=== PATIENT | female | born 1975 | race Caucasian/White ===

== ENCOUNTER 2020-05-04 09:25 | Day surgery (SDC) | payer MEDICARE, MEDICAID, SELFPAY ==
[2020-04-29 13:50] VITALS: BMI 58.1
--- NOTE | 2020-04-29 15:36 | P.CONAN_ITS ---
Documented by User: Sally Wiggins 04/29/20 15:39 HPI - Anesthesia Eval Consult details Narrative: 44yo F for EGD and Colonoscopy: GERD, abn LFT, rectal bleeding *multiple med allergies* PMFSH Past Medical History Medical History Arthritis Bronchitis Diabetes GERD (gastroesophageal reflux disease) History of fibromyalgia History of headache Hx of allergic reaction Hx of fracture of patella Hx of osteopenia Hx of Raynaud's syndrome Surgical History Surgical History History of removal of retained hardware Hx of arthroscopy of right knee Hx of cholecystectomy Hx of decompression of ulnar nerve Hx of hysterectomy Hx of tonsillectomy Social History Social History Smoking Status: Never smoker Use of substances other than those prescribed or required for medical reasons: No Advance Directives Information Provided: No Recently lost weight without trying: No Meds Allergies Allergy/AdvReac Type Severity Reaction Status Date / Time adalimumab [From Humira] Allergy Severe Anaphylaxis Verified 04/29/20 14:13 bee pollen [BEE STINGS] Allergy Severe SWELLING Verified 04/29/20 14:09 infliximab [From Remicade] Allergy Severe Anaphylaxis Verified 04/29/20 14:13 levofloxacin [From LEVAQUIN] Allergy Severe SEVERE Verified 04/29/20 14:09 JOINT PAIN pregabalin [From LYRICA] Allergy Severe ANAPHYLAXIS, Verified 04/29/20 14:04 throat swelling, throat swelling tree nut Allergy Severe Swelling Verified 04/29/20 14:13 adhesive [ADHESIVE] Allergy Intermediate RASH Verified 04/29/20 14:09 azithromycin Allergy Intermediate Hives Verified 04/29/20 14:13 etodolac Allergy Intermediate Swelling Verified 04/29/20 14:13 gabapentin [GABAPENTIN] Allergy Intermediate SWELLING Verified 04/29/20 14:09 TO LEGS AND FEET, swelling, swelling in legs and feet latex [LATEX] Allergy Intermediate RASH Verified 04/29/20 14:09 methylprednisolone Allergy Intermediate Muscle Verified 04/29/20 14:09 cramps nortriptyline [NORTRIPTYLINE] Allergy Intermediate FEVER, Verified 04/29/20 14:15 STOMACH CRAMPS, DRY MOUTH AND THROAT, coma, fever, stomach cramps lactose [LACTOSE] Allergy Mild CRAMPS, Verified 04/29/20 14:09 DIARRHEA shellfish derived Allergy Mild Stomach Verified 04/29/20 14:13 Upset moxifloxacin [Avelox] AdvReac Intermediate arthralgias Verified 04/29/20 14:13 doxycycline AdvReac Mild GI upset Verified 04/29/20 14:09 adhesive Allergy Intermediate Blister Uncoded 04/29/20 14:13 Home Medications Medication Instructions Recorded Confirmed Type albuterol sulfate 1 puff INHALATION Q4-6H PRN 04/29/20 04/29/20 History amlodipine 5 mg PO QPM 04/29/20 04/29/20 History cetirizine 10 mg PO QAM 04/29/20 04/29/20 History cholecalciferol (vitamin D3) 25 mcg PO DAILY 04/29/20 04/29/20 History [Vitamin D3] fexofenadine 180 mg PO QPM 04/29/20 04/29/20 History glyburide 5 mg PO BID 04/29/20 04/29/20 History hydroxyzine HCl 25 mg PO QID PRN 04/29/20 04/29/20 History magnesium oxide 250 mg PO QPM 04/29/20 04/29/20 History metformin 1,000 mg PO BID 04/29/20 04/29/20 History montelukast 10 mg PO BEDTIME 04/29/20 04/29/20 History pioglitazone 30 mg PO BEDTIME 04/29/20 04/29/20 History potassium chloride 20 meq PO DAILY 04/29/20 04/29/20 History ropinirole 0.75 mg PO BID 04/29/20 04/29/20 History Exam Exam Date and Time: April 29, 2020 1536 Height,Weight and Vital Signs: Height 5 ft 6 in Weight 163.293 kg Assessment and Plan Assessment Anesthesia Assessment: Chart Reviewed Documented by User: Wicho Calvo 05/04/20 11:05 [facility] Past Medical History Medical History Arthritis Bronchitis Diabetes GERD (gastroesophageal reflux disease) History of fibromyalgia History of headache Hx of allergic reaction Hx of fracture of patella Hx of osteopenia Hx of Raynaud's syndrome Surgical History Surgical History History of removal of retained hardware Hx of arthroscopy of right knee Hx of cholecystectomy Hx of decompression of ulnar nerve Hx of hysterectomy Hx of tonsillectomy Social History Social History Smoking Status: Never smoker Use of substances other than those prescribed or required for medical reasons: No Advance Directives Information Provided: No Recently lost weight without trying: No Meds Allergies Allergy/AdvReac Type Severity Reaction Status Date / Time adalimumab [From Humira] Allergy Severe Anaphylaxis Verified 04/29/20 14:13 bee pollen [BEE STINGS] Allergy Severe SWELLING Verified 04/29/20 14:09 infliximab [From Remicade] Allergy Severe Anaphylaxis Verified 04/29/20 14:13 levofloxacin [From LEVAQUIN] Allergy Severe SEVERE Verified 04/29/20 14:09 JOINT PAIN pregabalin [From LYRICA] Allergy Severe ANAPHYLAXIS, Verified 04/29/20 14:04 throat swelling, throat swelling tree nut Allergy Severe Swelling Verified 04/29/20 14:13 adhesive [ADHESIVE] Allergy Intermediate RASH Verified 04/29/20 14:09 azithromycin Allergy Intermediate Hives Verified 04/29/20 14:13 etodolac Allergy Intermediate Swelling Verified 04/29/20 14:13 gabapentin [GABAPENTIN] Allergy Intermediate SWELLING Verified 04/29/20 14:09 TO LEGS AND FEET, swelling, swelling in legs and feet latex [LATEX] Allergy Intermediate RASH Verified 04/29/20 14:09 methylprednisolone Allergy Intermediate Muscle Verified 04/29/20 14:09 cramps nortriptyline [NORTRIPTYLINE] Allergy Intermediate FEVER, Verified 04/29/20 14:15 STOMACH CRAMPS, DRY MOUTH AND THROAT, coma, fever, stomach cramps lactose [LACTOSE] Allergy Mild CRAMPS, Verified 04/29/20 14:09 DIARRHEA shellfish derived Allergy Mild Stomach Verified 04/29/20 14:13 Upset moxifloxacin [Avelox] AdvReac Intermediate arthralgias Verified 04/29/20 14:13 doxycycline AdvReac Mild GI upset Verified 04/29/20 14:09 adhesive Allergy Intermediate Blister Uncoded 04/29/20 14:13 Home Medications Medication Instructions Recorded Confirmed Type albuterol sulfate 1 puff INHALATION Q4-6H PRN 04/29/20 04/29/20 History amlodipine 5 mg PO QPM 04/29/20 04/29/20 History cetirizine 10 mg PO QAM 04/29/20 04/29/20 History cholecalciferol (vitamin D3) 25 mcg PO DAILY 04/29/20 04/29/20 History [Vitamin D3] fexofenadine 180 mg PO QPM 04/29/20 04/29/20 History glyburide 5 mg PO BID 04/29/20 04/29/20 History hydroxyzine HCl 25 mg PO QID PRN 04/29/20 04/29/20 History magnesium oxide 250 mg PO QPM 04/29/20 04/29/20 History metformin 1,000 mg PO BID 04/29/20 04/29/20 History montelukast 10 mg PO BEDTIME 04/29/20 04/29/20 History pioglitazone 30 mg PO BEDTIME 04/29/20 04/29/20 History potassium chloride 20 meq PO DAILY 04/29/20 04/29/20 History ropinirole 0.75 mg PO BID 04/29/20 04/29/20 History Exam Airway Mallampati Class: III TM Dist: >3cm Neck ROM: Full
[2020-05-04 10:24] VITALS: BP 134/81; PULSE 88; RESP 18; TEMP 36.4; O2SAT 95
[2020-05-04] MEDS: Lactated Ringers 1,000 ML 100 ML IVCONT (10:42)
--- NOTE | 2020-05-04 10:58 | MHC.SHP ---
Pre-Procedural Eval Section B Chief Complaint: DUODENAL ULCER,REFLUX Details of Present Illness: Gerd and rectal bleeding, see H&P, no changes Relevant Family History (Specify if Yes): No Relevant Social History: None Present Medications: see Short Stay Collaborative assessment Medical History: Significant History (see H&P no changes) History of Previous Operations: No relevant previous surgery Allergies: Allergies Allergy/AdvReac Type Severity Reaction Status Date / Time adalimumab [From Humira] Allergy Severe Anaphylaxis Verified 04/29/20 14:13 bee pollen [BEE STINGS] Allergy Severe SWELLING Verified 04/29/20 14:09 infliximab [From Remicade] Allergy Severe Anaphylaxis Verified 04/29/20 14:13 levofloxacin [From LEVAQUIN] Allergy Severe SEVERE Verified 04/29/20 14:09 JOINT PAIN pregabalin [From LYRICA] Allergy Severe ANAPHYLAXIS, Verified 04/29/20 14:04 throat swelling, throat swelling tree nut Allergy Severe Swelling Verified 04/29/20 14:13 adhesive [ADHESIVE] Allergy Intermediate RASH Verified 04/29/20 14:09 azithromycin Allergy Intermediate Hives Verified 04/29/20 14:13 etodolac Allergy Intermediate Swelling Verified 04/29/20 14:13 gabapentin [GABAPENTIN] Allergy Intermediate SWELLING Verified 04/29/20 14:09 TO LEGS AND FEET, swelling, swelling in legs and feet latex [LATEX] Allergy Intermediate RASH Verified 04/29/20 14:09 methylprednisolone Allergy Intermediate Muscle Verified 04/29/20 14:09 cramps nortriptyline [NORTRIPTYLINE] Allergy Intermediate FEVER, Verified 04/29/20 14:15 STOMACH CRAMPS, DRY MOUTH AND THROAT, coma, fever, stomach cramps lactose [LACTOSE] Allergy Mild CRAMPS, Verified 04/29/20 14:09 DIARRHEA shellfish derived Allergy Mild Stomach Verified 04/29/20 14:13 Upset moxifloxacin [Avelox] AdvReac Intermediate arthralgias Verified 04/29/20 14:13 doxycycline AdvReac Mild GI upset Verified 04/29/20 14:09 adhesive Allergy Intermediate Blister Uncoded 04/29/20 14:13 Review of Systems Sugical H&P ROS: Negative: Constitution, Cardiovascular, Respiratory, Neurological, Psychiatric, Hem-Onc, Allergic/Immunologic, Gastrointestinal, Genitourinary, Musculoskeletal, Integumentary, Endocrine and Eyes/Ears/Nose/Throat Exam Surgical H&P Exam: Normal: HEENT, Normal: Heart, Normal: Lungs, Normal: Extremities, Normal: Abdomen, Normal: Skin and Normal: Neurological Plan Diagnosis/Plan: Unchanged Patient has been examined and remains a candidate for the planned procedure
[2020-05-04 11:27] LABS: Glucose, Whole Blood 143 mg/dL (60-115)
[2020-05-04 11:45] VITALS: BP 113/59; PULSE 88; RESP 15; TEMP 36.6; O2SAT 97
--- NOTE | 2020-05-04 11:47 | PM.OP ---
Brief Operative Note Date of procedure: 05/04/20 Pre-op diagnosis: gerd rectal bleeding Post-op diagnosis: other (gastritis, colon polyp) Procedure: egd,colon Surgeon: Jaxson Dias Anesthesia: MAC Estimated blood loss (mL): 5 Pathology: other (antrum, egj, polyp 15 cm biopsies) Condition: stable Disposition: PACU
[2020-05-04 12:01] VITALS: BP 116/84; PULSE 87; RESP 16; TEMP 36.1; O2SAT 97
--- NOTE | 2020-05-04 12:19 | OP_ITS ---
SURGEON: Jaxson Dias MD INDICATIONS: 1. Gastroesophageal reflux disease. 2. Rectal bleeding. PREOPERATIVE DIAGNOSIS: POSTOPERATIVE DIAGNOSIS: PROCEDURE PERFORMED: 1. Upper endoscopy with biopsy. 2. Colonoscopy to the terminal ileum with biopsy. ESTIMATED BLOOD LOSS: COMPLICATIONS: ANESTHESIA: ASSISTANTS: SPECIMENS: MEDICATIONS: Monitored anesthesia care. DESCRIPTION OF PROCEDURE: History and physical performed. The risks and benefits of the procedure were explained to the patient. Informed consent was obtained. The patient was placed in the left lateral decubitus position. The Olympus video gastroscope was introduced into the esophagus, stomach, and duodenum. Examination was performed and the scope was removed. She was repositioned for colonoscopy. A digital rectal exam was performed and was found to be normal. The Olympus pediatric video colonoscope was introduced into the rectum and advanced to the cecum without difficulty. The cecum was identified by transillumination, palpation, and identification of ileocecal valve. Examination was performed and the scope was removed. She tolerated both procedures well and returned to recovery area in stable condition. FINDINGS: UPPER ENDOSCOPY: Esophagus: The esophagus showed an irregular EG junction. There was no esophagitis. Biopsies were obtained from the EG junction. Stomach: The stomach showed no evidence of masses or ulcers. There was mild scattered erythema consistent with mild gastritis. Biopsies were obtained from the antrum. Duodenum: The bulb and second portion were normal. COLONOSCOPY: The terminal ileum was normal. The visualized colonic mucosa was within normal limits without evidence of masses or ulcers. The quality of the prep was good. There was moderate sigmoid diverticulosis. A small less than 5 mm polyp was identified in the rectum at 15 cm and removed with biopsy forceps. No other polyps were identified. Retroflexed examination showed small internal hemorrhoids. IMPRESSION: 1. Gastritis. 2. Colon polyp. RECOMMENDATION: Follow up the biopsy results. MD TEJA Mulligan/HANNY / [id number]
== END 2020-05-04 12:51 | disposition home or self-care (01) ==
PROVIDERS: PCP Internal Medicine; Visit Provider Internal Medicine Gastroenterology
PROC: (CPT 45380; principal; 2020-05-04 10:30)
DX: K62.5 Hemorrhage of anus and rectum (principal); K62.1 Rectal polyp; K57.30 Diverticulosis of large intestine without perforation or abscess without bleeding; K64.8 Other hemorrhoids; K21.00 Gastro-esophageal reflux disease with esophagitis, without bleeding; K29.50 Unspecified chronic gastritis without bleeding; E11.9 Type 2 diabetes mellitus without complications; Z79.84 Long term (current) use of oral hypoglycemic drugs; Z79.899 Other long term (current) drug therapy; Z90.49 Acquired absence of other specified parts of digestive tract; Z88.8 Allergy status to other drugs, medicaments and biological substances; Z91.040 Latex allergy status; Z91.018 Allergy to other foods; Z91.013 Allergy to seafood
CPT/HCPCS: 45380; 43239; 82947; 88305; 88342

== ENCOUNTER 2020-06-18 08:00 | Outpatient (RCR) | payer MEDICARE, MEDICAID, SELFPAY | END 2020-08-12 09:56 | disposition other institution (70) | LOC: HO.PTWFD 08:00 | PROVIDERS: PCP Physician Assistant Medical; Visit Provider Orthopaedic Surgery | DX: M17.11 Unilateral primary osteoarthritis, right knee (principal); M17.12 Unilateral primary osteoarthritis, left knee | CPT/HCPCS: 97035; 97110; 97116; 97140; 97161 ==

== ENCOUNTER 2020-10-04 10:00 | Outpatient (RCR) | payer MEDICARE, MEDICAID, SELFPAY | END 2020-11-08 12:40 | disposition other institution (70) | LOC: HO.PTWFD 10:00 | PROVIDERS: Visit Provider Orthopaedic Surgery | DX: M70.61 Trochanteric bursitis, right hip (principal); M54.41 Lumbago with sciatica, right side; G89.29 Other chronic pain; M25.561 Pain in right knee | CPT/HCPCS: 97035; 97110; 97140; 97162; 97530; 97535 ==

== ENCOUNTER 2020-10-28 08:33 | Outpatient (REF) | payer MEDICARE, MEDICAID, SELFPAY ==
--- NOTE | ~2020-10-28 | US_ITS ---
EXAMINATION: US ABDOMEN COMPLETE CLINICAL INFORMATION: Elevated LFTs. COMPARISON: None TECHNIQUE: Real-time imaging of the abdominal viscera. FINDINGS: PANCREAS: Head and body the pancreas are normal. The tail is not well visualized. ABDOMINAL AORTA: The proximal, mid, and distal segments are normal in caliber. INFERIOR VENA CAVA: Visualized portions are normal. LIVER: The echotexture is increased. The liver is normal in size. The liver contour is normal. No focal hepatic lesion. There is no intrahepatic biliary duct dilatation seen. GALLBLADDER: Surgically absent. COMMON BILE DUCT: Not seen RIGHT KIDNEY: Normal. No hydronephrosis. No renal calculi or focal parenchymal lesions. The kidney measures 12 cm in maximum dimension. LEFT KIDNEY: Normal. No hydronephrosis. No renal calculi or focal parenchymal lesions. The kidney measures 11.8 cm in maximum dimension. SPLEEN: Normal. The spleen measures 12.3 cm in maximum dimension. FREE FLUID: None. US/US abdomen complete IMPRESSION: Echogenic liver probably representing fatty infiltration. No intrahepatic biliary duct dilatation. Pancreas and common bile duct not well visualized.
[2020-10-28 09:44] LABS: Basophils Percent Auto 0.7 % (0-2); Eosinophils Absolute Auto 0.1 X10*3/uL (0.0-0.4); Eosinophils Percent Auto 4.2 % (0-4); Hematocrit 42.7 % (37-47); Hemoglobin 13.7 g/dl (12.0-16.0); Imm Gran Abs Auto 0.01 X10*3/uL (0.00-0.03); Imm Gran Pct Auto 0.7 % (0.0-0.4); Lymphocytes Absolute Auto 0.8 X10*3/uL (1.2-4.9); Lymphocytes Percent Auto 52.8 % (20-40); MANUAL DIFF FLAG SCAN; Mean Corpuscular HGB Conc 32.1 g/dl (31.0-35.0); Mean Corpuscular Hemoglobin 30.2 pg (27.0-33.0); Mean Corpuscular Volume 94.3 fL (80-98); Mean Platelet Volume 9.3 fL (9.4-12.3); Monocytes Absolute Auto 0.3 X10*3/uL (0.1-1.2); Monocytes Percent Auto 17.6 % (2-11); Neutrophils Absolute Auto 0.3 X10*3/uL (2.0-8.3); Platelet Count 169 X10*3/uL (160-400); Red Blood Count 4.53 X10*6/uL (4.20-5.50); Red Cell Distribution Width 13.7 % (11.0-16.0); SCAN SMEAR FLAG 1
[2020-10-28 09:49] LABS: White Blood Count 1.4 X10*3/uL (4.8-10.8)
[2020-10-28 09:56] LABS: Prothrombin Time 11.7 SEC (10.8-13.0)
[2020-10-28 10:20] LABS: SLIDE REVIEW VERIFIED
[2020-10-28 10:26] LABS: Alanine Aminotransferase 59 U/L (0-31); Albumin Level 3.7 g/dL (3.5-5.0); Alkaline Phosphatase 181 U/L (39-117); Aspartate Amino Transferase 42 U/L (5-31); Bilirubin Direct 0.2 mg/dL (0.0-0.5); Bilirubin Total 0.5 mg/dL (0.0-1.0); Gamma Glutamyl Transpeptidase 191 U/L (7-33); Total Protein 6.2 g/dL (6.5-8.0)
[2020-11-04 18:32] LABS: FIB-ALT 52 U/L (6-29); FIB-Alpha-2-Macroglobulin 207 mg/dL (106-279); FIB-Apolipoprotein A1 174 mg/dL (101-198); FIB-GGT 146 U/L (3-55); FIB-Haptoglobin 148 mg/dL (43-212); FIB-Total Bilirubin 0.4 mg/dL (0.2-1.2); Liver Fibrosis Score 0.19; Liver Fibrosis Stage F0; Nec Inflam Act Grade A0-A1; Nec Inflam Act Score 0.27
== END 2020-10-28 08:34 | disposition home or self-care (01) ==
LOC: HO.US 08:33
PROVIDERS: PCP Internal Medicine; Visit Provider Internal Medicine Gastroenterology
DX: R94.5 Abnormal results of liver function studies (principal)
CPT/HCPCS: 36415; 76700; 80076; 81596; 82977; 85025; 85060; 85610

== ENCOUNTER 2021-06-14 13:00 | Outpatient (RCR) | payer MEDICARE, MEDICAID, SELFPAY | END 2021-08-01 09:30 | disposition home or self-care (01) | LOC: HO.PTWFD 13:00 | PROVIDERS: Visit Provider Physician Assistant | DX: M62.81 Muscle weakness (generalized) (principal) | CPT/HCPCS: 97110; 97140; 97163 ==

== ENCOUNTER → 2021-12-23 10:02 | Outpatient (BNVA) | payer MEDICARE, MEDICAID, SELFPAY | PROVIDERS: PCP Internal Medicine; Visit Provider Nurse Practitioner Family | DX: M53.3 Sacrococcygeal disorders, not elsewhere classified (principal); M06.9 Rheumatoid arthritis, unspecified; M47.816 Spondylosis without myelopathy or radiculopathy, lumbar region; E66.01 Morbid (severe) obesity due to excess calories; Z68.43 Body mass index [BMI] 50.0-59.9, adult | CPT/HCPCS: 99202 ==

== ENCOUNTER 2022-05-11 08:00 | Outpatient (RCR) | payer MEDICARE, MEDICAID, SELFPAY | END 2022-05-26 13:57 | disposition home or self-care (01) | LOC: HO.PTWFD 08:00 | PROVIDERS: PCP Physician Assistant Medical; Visit Provider Physician Assistant | DX: M75.50 Bursitis of unspecified shoulder (principal); M54.12 Radiculopathy, cervical region | CPT/HCPCS: 97014; 97110; 97140; 97162; 97535 ==

== ENCOUNTER 2022-06-02 08:00 | Outpatient (RCR) | payer MEDICARE, MEDICAID, SELFPAY | END 2022-06-02 09:13 | disposition home or self-care (01) | LOC: HO.OT 08:00 | PROVIDERS: PCP Physician Assistant Medical; Visit Provider Physician Assistant | DX: M25.521 Pain in right elbow (principal); G89.29 Other chronic pain | CPT/HCPCS: 97035; 97110; 97140; 97166 ==

== ENCOUNTER 2022-08-11 08:16 | Outpatient (REF) | payer MEDICARE, MEDICAID, SELFPAY ==
--- NOTE | ~2022-08-11 | US_ITS ---
EXAMINATION: US ABDOMEN LIMITED CLINICAL INFORMATION: Abnormal LFTs. COMPARISON: Ultrasound abdomen complete 10/28/2020. TECHNIQUE: Real-time imaging of the right upper quadrant abdominal viscera. FINDINGS: PANCREAS: Largely obscured by overlapping bowel gas. LIVER: The liver is normal in size. The liver contour is normal. Parenchymal echogenicity is generally increased. No focal hepatic lesion. There is no intrahepatic biliary duct dilatation seen. GALLBLADDER: Surgically absent. COMMON BILE DUCT: Normal in caliber measuring 0.6 cm in diameter. RIGHT KIDNEY: Normal. No hydronephrosis. No renal calculi or focal parenchymal lesions. The kidney measures 11.8 cm in maximum dimension. FREE FLUID: None. US/US abdomen limited IMPRESSION: 1. There is generalized increase in hepatic echotexture, consistent with fatty infiltration or hepatocellular disease. Please correlate clinically. No focal hepatic mass or intrahepatic biliary dilatation is seen. 2. Technically limited ultrasound examination of the pancreas. 3. The gallbladder is surgically absent.
== END 2022-08-11 08:17 | disposition home or self-care (01) ==
LOC: HO.HMGCX 08:16
PROVIDERS: Visit Provider Internal Medicine Gastroenterology
DX: R79.89 Other specified abnormal findings of blood chemistry (principal); R94.5 Abnormal results of liver function studies
CPT/HCPCS: 76705

== ENCOUNTER 2023-03-16 13:37 | Outpatient (REF) | payer MEDICARE, MEDICAID, SELFPAY | END 2023-03-16 13:38 | disposition home or self-care (01) | LOC: HO.HOSX 13:37 | PROVIDERS: Visit Provider Orthopaedic Surgery | DX: Z13.89 Encounter for screening for other disorder (principal) ==

== ENCOUNTER 2024-05-29 13:02 | Outpatient (AMB) | payer MEDICARE, MEDICAID, SELFPAY ==
--- NOTE | 2024-05-29 13:03 | MHC.OFFVIS ---
Vital Signs 05/29/24 13:04 Height 5 ft 4.5 in Weight 240 lb 8.389 oz BMI 40.6 BP 110/76 Blood Pressure Location Lt brachial Position Standing Pulse 30 L Pulse Source Pulse Oximeter Intake Visit Reasons: RA/does MR Recieved Intake Note: Patient present today for RA office visit. Allergies adalimumab [From Humira] Allergy (Severe, Verified 12/23/21 10:32) Anaphylaxis bee pollen [BEE STINGS] Allergy (Severe, Verified 12/23/21 10:32) SWELLING infliximab [From Remicade] Allergy (Severe, Verified 12/23/21 10:32) Anaphylaxis levofloxacin [From LEVAQUIN] Allergy (Severe, Verified 12/23/21 10:32) SEVERE JOINT PAIN pregabalin [From LYRICA] Allergy (Severe, Verified 12/23/21 10:32) ANAPHYLAXIS, throat swelling, throat swelling tree nut Allergy (Severe, Verified 12/23/21 10:32) Swelling adhesive [ADHESIVE] Allergy (Intermediate, Verified 12/23/21 10:32) RASH azithromycin Allergy (Intermediate, Verified 12/23/21 10:32) Hives etodolac Allergy (Intermediate, Verified 12/23/21 10:32) Swelling gabapentin [GABAPENTIN] Allergy (Intermediate, Verified 12/23/21 10:32) SWELLING TO LEGS AND FEET, swelling, swelling in legs and feet latex [LATEX] Allergy (Intermediate, Verified 12/23/21 10:32) RASH methylprednisolone Allergy (Intermediate, Verified 12/23/21 10:32) Muscle cramps nortriptyline [NORTRIPTYLINE] Allergy (Intermediate, Verified 12/23/21 10:32) FEVER, STOMACH CRAMPS, DRY MOUTH AND THROAT, coma, fever, stomach cramps lactose [LACTOSE] Allergy (Mild, Verified 12/23/21 10:32) CRAMPS, DIARRHEA shellfish derived Allergy (Mild, Verified 12/23/21 10:32) Stomach Upset moxifloxacin [Avelox] Adverse Reaction (Intermediate, Verified 12/23/21 10:32) arthralgias doxycycline Adverse Reaction (Mild, Verified 12/23/21 10:32) GI upset adhesive Allergy (Intermediate, Uncoded 12/23/21 10:32) Blister Medication List - Last Reconciled 05/29/24 by Liang To MD albuterol sulfate 90 mcg/actuation 1 puff inhalation Q4-6H PRN amlodipine 5 mg PO QPM certolizumab pegol (Cimzia) 400 mg subcut Q4W cetirizine 10 mg PO QAM cholecalciferol (vitamin D3) (Vitamin D3) 25 mcg PO DAILY cyclobenzaprine mg PO dexamethasone sodium phosphate 0.1% ophthalmic (eye) empagliflozin (Jardiance) 25 mg PO DAILY fexofenadine 180 mg PO QPM fluconazole 150 mg PO Q3D glyburide 5 mg PO BID hydroxyzine HCl 25 mg PO QID PRN levocetirizine mg PO magnesium oxide 250 mg PO QPM metformin 1,000 mg PO BID montelukast 10 mg PO BEDTIME oxycodone-acetaminophen 5-325 mg tabs PO pioglitazone 30 mg PO BEDTIME potassium chloride ER 20 mEq PO DAILY ropinirole 0.75 mg PO BID HPI Comments Details: She was recently treated for cellulitis left arm with linzolide. She saw general surgery who debrided left arm wound that was purulent. She was off of cimzia and Rasuvo for 3 weeks. She is actively being treated for left 3rd toe cellulitis with keflex 14 days started last sunday. RIC PRATT told her to continue DMARDs. She has been on rasuvo 04/30 and cimzia 04/28/2024. After administrating rasuvo she is getting a rash on her arms. Rash is self limited. She has to take benadryl BID prior to taking rasuvo in the last 3 weeks. Rash underbreast and pruritic rash started 2 weeks. She has an appointment with PCP next sunday. [facility] Medical History Arthritis Bronchitis Diabetes GERD (gastroesophageal reflux disease) History of fibromyalgia History of headache Hx of allergic reaction Hx of fracture of patella Hx of osteopenia Hx of Raynaud's syndrome Surgical History History of removal of retained hardware Hx of arthroscopy of right knee Hx of cholecystectomy Hx of decompression of ulnar nerve Hx of hysterectomy Hx of tonsillectomy Family History (Updated 05/29/24 @ 13:10 by WEI Velasquez) Mother Thyroid adenoma Bypass graft stenosis Father Diabetes Heart disease Hypertension Social History (Updated 05/29/24 @ 13:08 by WEI Velasquez) Alcohol intake: current Alcohol intake frequency: holidays/special occasions only Patient Tobacco Use Status: Never used Tobacco Review of Systems Const All systems reviewed & are unremarkable except as noted in HPI and below Physical Exam Vital Signs: Last Vital Signs Pulse 30 L 05/29/24 13:04 BP 110/76 05/29/24 13:04 BMI result Body Mass Index 40.6 Const General: healthy appearing and comfortable Resp Effort & Inspection: normal respiratory effort Cardio Rate: regular rate Rhythm: regular rhythm Heart sounds: S1 normal heart sound present and S2 normal heart sound present Extrem Other: Chronic synovial thickenening bilateral 2nd MCPs. Tender MCPs, PIPs and 2nd right and left 2-3 DIP. Synovitis and tenderness of right wrist. Tender left wrist, bilateral elbows, shoulders, right ankle and left MTP. Dactylitis right 3rd toe. General: Yes amputation noted Results Reviewed Results Reviewed: labs from 10/2023 and 01/2024 reviewed. Assessment & Plan Assessment & Plan (1) Rheumatoid arthritis: Comment: Uncontrolled. Currently being treated for left 3rd toe dactylitis infection on keflex. SHe is experiencing side effects from Rasuvo (arm rash). Code(s): M06.9 - Rheumatoid arthritis, unspecified Category: Medical Plan: d/c rasuvo She administered cimzia 400mg SC once monthly last week Will obtain labs for disease and drug monitoring next visit RTC 1 month Hold off on systemic glucorticosteroids this visit. She will call office if pain from RA worsens. PCP follow-up next week for rash underbreasts ?fungal (2) Other [facility] (current) drug therapy: Comment: See above Code(s): Z79.899 - Other adjunct faculty for medical terminology (current) drug therapy Category: Medical Plan: See above Plan . Coding Level of Care Code Est Pt Level 4 (09650) Complex EM visit Add On G2211 Diagnoses Rheumatoid arthritis M06.9 Other [facility] (current) drug therapy Z79.899
[2024-05-29 13:04] VITALS: BP 110/76; PULSE 30; BMI 40.6
== END 2024-05-29 14:15 | disposition home or self-care (01) ==
PROVIDERS: PCP Physician Assistant Medical; Visit Provider Internal Medicine Rheumatology
DX: M06.9 Rheumatoid arthritis, unspecified (principal); Z79.899 Other long term (current) drug therapy
CPT/HCPCS: 99214; G2211

== ENCOUNTER → 2024-05-29 13:02 | Outpatient (BNVA) | payer MEDICARE, MEDICAID, SELFPAY | PROVIDERS: PCP Physician Assistant Medical; Visit Provider Internal Medicine Rheumatology | DX: L40.50 Arthropathic psoriasis, unspecified (principal); Z79.899 Other long term (current) drug therapy | CPT/HCPCS: 99212 ==

== ENCOUNTER 2024-07-15 08:18 | Outpatient (AMB) | payer MEDICARE, MEDICAID, SELFPAY ==
[2024-07-15 08:33] VITALS: BP 112/60; PULSE 103; O2SAT 97; BMI 40.3
--- NOTE | 2024-07-15 08:33 | MHC.OFFVIS ---
Vital Signs 07/15/24 08:33 Height 5 ft 4.5 in Weight 238 lb 12.17 oz BMI 40.3 BP 112/60 Blood Pressure Location Lt brachial Position Sitting Pulse 103 H Pulse Source Pulse Oximeter Pulse Oximetry (%) 97 Intake Visit Reasons: follow up 1 month Intake Note: Patient presents for follow up on RA. Allergies adalimumab [From Humira] Allergy (Severe, Verified 07/15/24 08:39) Anaphylaxis bee pollen [BEE STINGS] Allergy (Severe, Verified 07/15/24 08:39) SWELLING infliximab [From Remicade] Allergy (Severe, Verified 07/15/24 08:39) Anaphylaxis levofloxacin [From LEVAQUIN] Allergy (Severe, Verified 07/15/24 08:39) SEVERE JOINT PAIN pregabalin [From LYRICA] Allergy (Severe, Verified 07/15/24 08:39) ANAPHYLAXIS, throat swelling, throat swelling tree nut Allergy (Severe, Verified 07/15/24 08:39) Swelling adhesive [ADHESIVE] Allergy (Intermediate, Verified 07/15/24 08:39) RASH azithromycin Allergy (Intermediate, Verified 07/15/24 08:39) Hives etodolac Allergy (Intermediate, Verified 07/15/24 08:39) Swelling gabapentin [GABAPENTIN] Allergy (Intermediate, Verified 07/15/24 08:39) SWELLING TO LEGS AND FEET, swelling, swelling in legs and feet latex [LATEX] Allergy (Intermediate, Verified 07/15/24 08:39) RASH methylprednisolone Allergy (Intermediate, Verified 07/15/24 08:39) Muscle cramps nortriptyline [NORTRIPTYLINE] Allergy (Intermediate, Verified 07/15/24 08:39) FEVER, STOMACH CRAMPS, DRY MOUTH AND THROAT, coma, fever, stomach cramps amoxicillin Allergy (Mild, Verified 07/15/24 08:42) Hives lactose [LACTOSE] Allergy (Mild, Verified 07/15/24 08:39) CRAMPS, DIARRHEA povidone-iodine Allergy (Mild, Verified 07/15/24 08:42) Hives shellfish derived Allergy (Mild, Verified 07/15/24 08:39) Stomach Upset moxifloxacin [Avelox] Adverse Reaction (Intermediate, Verified 07/15/24 08:39) arthralgias hydroxychloroquine Adverse Reaction (Mild, Verified 07/15/24 08:42) bruising adhesive Allergy (Intermediate, Uncoded 07/15/24 08:39) Blister HPI HPI follow up 1 month: Details: She has been on treatment with Keflex for osteomyelitis left 3rd toe. Swelling has subsided. She still continues to have pain. Joints are swollen. She did not complete taper due to increased anxiety while on prednisone and being isolated in her home. She has taken prednisone 10 mg with benefit in reducing her joint swelling PRN. After being on prednisone for 3 day she lost 6 lb. [facility] Medical History Arthritis Bronchitis Diabetes GERD (gastroesophageal reflux disease) History of fibromyalgia History of headache Hx of allergic reaction Hx of fracture of patella Hx of osteopenia Hx of Raynaud's syndrome Surgical History History of removal of retained hardware Hx of arthroscopy of right knee Hx of cholecystectomy Hx of decompression of ulnar nerve Hx of hysterectomy Hx of tonsillectomy Family History (Updated 05/29/24 @ 13:10 by WEI Velasquez) Mother Thyroid adenoma Bypass graft stenosis Father Diabetes Heart disease Hypertension Social History (Updated 05/29/24 @ 13:08 by WEI Velasquez) Alcohol intake: current Alcohol intake frequency: holidays/special occasions only Patient Tobacco Use Status: Never used Tobacco Review of Systems Const All systems reviewed & are unremarkable except as noted in HPI and below Physical Exam Vital Signs: Last Vital Signs Pulse 103 H 07/15/24 08:33 BP 112/60 07/15/24 08:33 Pulse Ox 97 07/15/24 08:33 BMI result Body Mass Index 40.3 Const Other: General: Comfortable CVS: RRR Respiratory: clear to auscultation bilaterally. Good respiratory effort Skin: No lesions seen MSK: Tender and swollen right MCPs. Tender bilateral 2nd and 3rd DIPJs. No tenderness of PIP knees. Tender wrists. Right elbow flexion contracture. Limited full shoulder abduction but good internal and external rotation of shoulders. Valgus deformity of bilateral knees. Tender bilateral ankles and left MTPs and right 3rd MTP. No synovitis or dactylitis of lower extremities present. Results Reviewed Results Reviewed: Labs reviewed from July 01, 2024 and 07/14/2024. Initially ESR was 40 millimeters/hour, decrease to 17 millimeters/hour. CBC, creatinine, AST and ALT are normal. MRI brain 2023 report reviewed with patient. She has neurology evaluation in 08/04/2024. History of migraines. Assessment & Plan Assessment & Plan (1) Rheumatoid arthritis: Comment: Uncontrolled. Currently being treated for left 3rd toe dactylitis infection on keflex with 3 more weeks before she starts prophylaxis. I had a conversation with ID S[facility]ou about patient's care. Patient was previously on prophylaxis after being treated for recurrent cellulitis left 3rd toe but failed treatment leading to cellulitis. May need to consider alternative to Keflex for prophylaxis after patient completes treatment for osteomyelitis. Patient will discuss with ID team. We discussed DMARD therapy. I will not restart Cimzia. Discussed alternatives. Patient agrees to consider Rinvoq after lab results are back. She has oral thrush due to immune compromised state. EMG results reviewed, which reveal generalized polyneuropathy likely related to uncontrolled diabetes as patient reports her last hemoglobin A1c from April was 10. Code(s): M06.9 - Rheumatoid arthritis, unspecified Category: Medical Plan: Labs ordered TB and hepatitis screen After lab results are back, we will start PA for Rinvoq RTC 3 month She will use prednisone 10 mg PMR joint pain and swelling rather than daily regimen due to uncontrolled anxiety Nystatin swish and spit prescribed for oral thrush Follow-up with PCP for diabetes management. 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
== END 2024-07-15 09:26 | disposition home or self-care (01) ==
PROVIDERS: PCP Physician Assistant Medical; Visit Provider Internal Medicine Rheumatology
DX: M06.9 Rheumatoid arthritis, unspecified (principal); Z79.899 Other long term (current) drug therapy
CPT/HCPCS: 99214; G2211

== ENCOUNTER → 2024-07-15 08:18 | Outpatient (BNVA) | payer MEDICARE, MEDICAID, SELFPAY | PROVIDERS: PCP Physician Assistant Medical; Visit Provider Internal Medicine Rheumatology | DX: M06.9 Rheumatoid arthritis, unspecified (principal); Z79.899 Other long term (current) drug therapy | CPT/HCPCS: 99212 ==

== ENCOUNTER 2024-08-09 11:13 | Outpatient (REF) | payer MEDICARE, MEDICAID, SELFPAY ==
--- OUTSIDE RECORDS SUMMARY | 2024-08-09 11:17 | XMS_ITS | Encounter Summary ---
Author Organization [facility] Address [address] [place] [address] Care Team Providers Care Records Supervisor Name Role Phone Wale Shaver Primary Care Provider [phone] Encounter Details Date Type Department Care Team (Latest Contact Info) Description 05/04/2017 [employer] Message [facility] [address] [place] [id number] Plate Drying Machine Tender: Lisa Chau MD [address] [phone] Non-Urgent Medical Question Social History Tobacco Use Types Packs/Day Years Used Date Smoking Tobacco: Never Smokeless Tobacco: Never Comments:: Alcohol Use Standard Drinks/Week Comments No 0 (1 standard drink = 0.6 oz pur e alcohol) Comments Unknown Sex and Gender Information Value Date Recorded Sex Assigned at Female 10/25/2020 7:56 PM EDT Legal Sex Female 3:48 AM EDT Gender Identity Female 10/25/2020 7:56 PM EDT Sexual Orientation Straight 10/25/2020 7: 56 PM EDT documented as of this encounter Miscellaneous Notes * Telephone Encounter - Sree Ram LPN - 05/10/2017 4:20 PM EDTFrom: Iva Cervantes To: Lisa Couch MD Sent: 05/04/2017 2:08 PM EDT Subject: Non-Urgent Medical Question When I come out the week of May 21 can I do my blood work at the same time. Thank you documented in this encounter Plan of Treatment Not on file documented as of this encounter Visit Diagnoses Not on filedocumented in this encounter Care Teams Records Supervisor Relationship Specialty Start Date End Date Wale Shaver PCP - General Internal Medicine 09/24/20 documented as of this encounter
--- OUTSIDE RECORDS SUMMARY | 2024-08-09 11:17 | XMS_ITS | Encounter Summary ---
Author Organization [facility] Address [address] [place] [address] Care Team Providers Care Environmental Studies Professor Name Role Phone Wale Shaver Primary Care Provider [phone] Reason for Visit * Reason Comments Wound Infection In left foot Encounter Details Date Type Department Care Team (Late st Contact Info) Description 07/23/2024 8:00 AM EST Office Visit Adult Medicine [facility] [address] [place] [address] Wale Shaver PA [address] [place] [address] Osteomyelitis, unspecified site, unspecified type (CMS/HCC) (Primary Dx); Type 2 diabetes mellitus with microalbuminuria, without long-term current use of insulin (CMS/HCC); Pure hypercholesterolemia ; Psoriatic arthritis (CMS/[facility]) Social History Tobacco Use Types Packs/Day Years Used Date Smoking Tobacco: Never Smokeless Tobacco: Never Tobacco Cessation:Counseling Given: Not Answered Alcohol Use Standard Drinks/Week Comments No 0 (1 standard drink = 0.6 oz pur e alcohol) Sex and Gender Information Value Date Recorded Sex Assigned at Not on file Gender Identity Not on file Sexual Orientation Not on file Job Start Date Occupation Industry Not on file Not on file Not on file documented as of this encounter Last Filed Vital Signs Vital Sign Reading Time Taken Comments Blood Pressure 125/84 07/23/2024 8:16 AM EST Pulse 120 07/23/2024 8:16 AM EST Temperature 36.1 ??C (97 ??F) 07/23/2024 8:16 AM EST Respiratory Rate 17 07/23/2024 8:16 AM EST Oxygen Saturation - - Inhaled Oxygen Concentration - - Weight 108 kg (237 lb 9.6 oz) 07/23/2024 8:16 AM EST Height 163.8 cm (5' 4.5 ) 07/23/2024 8:16 AM EST Body Mass Index 40.15 07/23/2024 8:16 AM EST documented in this encounter Ordered Prescriptions Prescription Sig Dispensed Refills Start Date End Da te cyclobenzaprine (FLEXERIL) 10 mg tabletIndications:Osteomye litis, unspecified site, unspecified type (CMS/HCC) Take 1 tablet (10 mg total) by mouth 3 (three) times a day if needed for muscle spasms. 90 tablet 3 07/23/2024 oxyCODONE (ROXICODONE) 5 mg immediate release tabletIndications:Osteomye litis, unspecified site, unspecified type (CMS/HCC) Take 1 tablet (5 mg total) by mouth every 4 (four) hours if needed for severe pain. Max Daily Amount: 30 mg 42 tablet 07/23/2024 documented in this encounter Progress Notes * Wale Shaver, SANTA - 07/23/2024 8:00 AM EST CHIEF COMPLAINT: Wound Infection (In left foot ) IDENTIFIER: Iva Cervantes is a 48 y.o. old female. HPI: This pleasant patient presents today for follow-up of a osteomyelitis on her third toe.Has been going on for some time has been on oral antibiotics. She is seeing the infectious disease specialist and there has been talk of maybe doing IV antibiotics which might be more effective. Also amputation has been discussed but she is looking to avoid this which is certainly understandable. She is going to the wound clinic regularly and she is seeing podiatry as well. Complicating matters she is holdingCimzia because of the infection and was prescribed prednisone to help with inflammation but of course this tends to raise her blood sugars which are already somewhat high ROS: GENERAL: Negative for malaise, significant weight loss and fever RESPIRATORY: No cough, wheezing or shortness of breath CARDIOVASCULAR: Negative for chest pain, leg swelling and palpitations ENDOCRINE: Negative for cold or heat intolerance, polyuria, polydipsia and goiter NEURO: No persistent headache, fainting, seizures, strokes, TIAs, weakness, numbness or tingling PAST MEDICAL HISTORY: Patient Active Problem List Diagnosis Date Noted Morbid obesity with BMI of 60.0-69.9, adult ([facility]) 04/24/2024 RA (rheumatoid arthritis) ([facility]) 04/24/2024 Chilblains 08/14/2023 Pyoderma gangrenosum ([facility]) 11/02/2022 Subclinical hypothyroidism 11/16/2020 Pure hypercholesterolemia 08/06/2020 Arm mass, right 04/21/2019 Type 2 diabetes mellitus with microalbuminuria, without long-term current use of insulin ([facility]) 12/04/2018 Hypokalemia 11/22/2018 Thyroid nodule 07/10/2018 Gastroesophageal reflux disease without esophagitis 01/30/2018 Mild intermittent asthma without complication 12/05/2017 Wall's cyst of knee, left 08/28/2017 Elevated alkaline phosphatase level 08/28/2017 Fibromyalgia 08/28/2017 Multilevel degenerative disc disease 08/28/2017 RLS (restless legs syndrome) 08/28/2017 Psoriatic arthritis ([facility]) 08/20/2017 Psoriasis 08/10/2017 Osteoarthritis 04/02/2015 Raynaud disease 04/02/2015 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 Migraine 03/29/2009 Past Surgical History: Procedure Laterality Date CHOLECYSTECTOMY 2006 PROCEDURE: HISTORICAL CHOLECYSTECTOMY COLONOSCOPY 05/04/2020 PROCEDURE: HISTORICAL COLONOSCOPY; COMMENT: small polyp - dr. stevens ELBOW SURGERY Right 11/24/2016 PROCEDURE: HISTORICAL ELBOW SURGERY; COMMENT: Open ulnar nerve neurolysis w/ anterior subcutaneous transposition HYSTERECTOMY PROCEDURE:HYSTERECTOMY KNEE ARTHROSCOPY PROCEDURE:KNEE ARTHROSCOPY;COMMENT:right knee KNEE ARTHROSCOPY Right 2007 PROCEDURE: IN ARTHROSCOPY KNEE DIAGNOSTIC W/WO SYNOVIAL BX SPX; COMMENT: x 2 arthroscopic KNEE SURGERY PROCEDURE: HISTORICAL KNEE SURGERY; COMMENT: patellar realignment, removal of harward OTHER SURGICAL HISTORY PROCEDURE:tonsils OTHER SURGICAL HISTORY 05/29/2017 PROCEDURE: INJECT NERVE BLOCK,VERT FACET JOINT; COMMENT: L4-5, L5-S1 (05/2016 T5-6, 06/2015 T5-6, 04/2014 C5-6, C6-7, 09/2013 R T12, 06/2013 R T10 and T11, 02/2013 T4-5, 5-6) PATELLA REALIGNMENT PROCEDURE:PATELLA REALIGNMENT;COMMENT:RIGHT KNEE STOMACH SURGERY PROCEDURE:STOMACH SURGERY;COMMENT:gallbladder TONSILLECTOMY PROCEDURE: HISTORICAL TONSILLECTOMY ULNAR NERVE REPAIR PROCEDURE:ULNAR NERVE REPAIR;COMMENT:RIGHT UPPER GASTROINTESTINAL ENDOSCOPY 05/04/2020 PROCEDURE: IN UPPER GI ENDOSCOPY PERFORMED; COMMENT: gastritis - dr. stevens SOCIAL HISTORY: Social History Tobacco Use Smoking status: Never Smokeless tobacco: Never Substance Use Topics Alcohol use: No FAMILY HISTORY: Family History Problem Relation Name Age of Onset Heart disease Mother Diabetes Mother Thyroid disease Mother Hypertension Mother Heart failure Father Diabetes Father with retinal bleeding, obesity, hypertension,CAD cabg Hypertension Father Thyroid disease Sister Cancer Sister Arthritis Mother DM,HTN, Hypothyroid, Carotid stenosis, abdominal aortic stenosis Heart attack Maternal Grandfather from [place] @ 60 Diabetes Paternal Grandfather Migraines Osteoporosis Maternal Grandmother Rheum arthritis Maternal Grandmother Coronary artery disease Paternal Grandmother Other (Other: aortic aneursym) Paternal Grandmother Hyperthyroidism Sister Other (Other: Basal Cell Carcinoma) Sister Hyperthyroidism Sister Other (Other: basal cell carcinoma) Sister Family Status Relation Name Status Mother Alive dm, htn, thyroid, joint disease Father Alive CABG, dm, htn Sister (Not Specified) MGF PGF (Not Specified) MGM (Not Specified) PGM (Not Specified) Sister Alive Sister Alive No partnership data on file MEDICATIONS DISCONTINUED/REORDERED: Medications Discontinued During This Encounter Medication Reason oxyCODONE (ROXICODONE) 5 mg immediate release tablet NIFEdipine (ADALAT CC) 30 mg 24 hr tablet cyclobenzaprine (FLEXERIL) 10 mg tablet Reorder ACTIVE MEDICATIONS: Outpatient Medications Marked as Taking for the 07/23/24 encounter (Office Visit) with SANTA Palmer Medication Sig Dispense Refill acetaminophen-codeine (TYLENOL #3) 300-30 mg per tablet Take 1 tablet by mouth 3 (three) times a day if needed. albuterol HFA (PROAIR HFA ; PROVENTIL HFA ; VENTOLIN HFA) 90 mcg/actuation inhaler Inhale 2 Puffs into the lungs every 4 hours as needed for Cough or Wheezing. blood sugar diagnostic (FreeStyle Lite Strips) test strip USE DIRECTED TO CHECK BLOOD SUGAR oncedaily calcium carbonate (CALCIUM 600 ORAL) Take 1 Tablet by mouth. cephalexin (KEFLEX) 500 mg capsule Take 2 capsules (1,000 mg total) by mouth 4 (four) times a day. certolizumab pegol (Cimzia Powder for Reconst) 400 mg (200 mg x 2 vials) kit Inject 200 mg into theskin. cholecalciferol (VITAMIN D-3) 5,000 Units tablet Take 1 tablet (5,000 Units total) by mouth 1 (one)time each day. cyanocobalamin (VITAMIN B-12) 500 mcg tablet Take 500 mcg by mouth daily. cyclobenzaprine (FLEXERIL) 10 mg tablet Take 1 tablet (10 mg total) by mouth 3 (three) times a day if needed for muscle spasms. 90 tablet 3 dapagliflozin propanediol (FARXIGA) 10 mg tablet Take 1 tablet (10 mg total) by mouth 1 (one) time each day. EPINEPHrine (EpiPen 2-Ramakrishna) 0.3 mg/0.3 mL injection Inject as directed. FreeStyle Lancets 28 gauge lancets USE TO TEST BLOOD SUGAR TWICE DAILY 200 each 0 FREESTYLE LANCETS MISC Use to test blood sugars BID glipiZIDE (GLUCOTROL) 5 mg tablet Take 1 Tablet by mouth 2 times daily (before meals). hydrocortisone 2.5 % cream Apply twice daily for 7 to 14 days hydrOXYzine HCL (ATARAX) 25 mg tablet Take 2 Tablets by mouth every 8 hours as needed for Itching. insulin glargine (LANTUS) 100 unit/mL injection Inject 10 units at bedtime every evening leucovorin 5 mg tablet TAKE 1 TABLET BY MOUTH THE DAY AFTER YOU TAKE METHOTREXATE levocetirizine (XYZAL) 5 mg tablet Take 5 mg by mouth daily. linezolid (ZYVOX) 600 mg tablet Route: Take 1 Tablet by mouth 2 times daily for 10 days. - Oral loteprednol etabonate (Lotemax SM) 0.38 % drops,gel INSTILL 1 DROP INTO BOTH EYES TWICE DAILY FOR TWO WEEKS THEN 1 DROP EVERY DAY IN BOTH EYES FOR TWO WEEKS magnesium oxide 250 mg magnesium tablet Take 1 tablet (250 mg total) by mouth 1 (one) time each day. metFORMIN XR (GLUCOPHAGE-XR) 500 mg 24 hr tablet Take 4 tablets (2,000 mg total) by mouth 1 (one) time each day. Do not crush, chew, or split. 360 tablet 3 methotrexate/PF (RASUVO, PF, SUBQ) montelukast (SINGULAIR) 10 mg tablet Take 1 tablet (10 mg total) by mouth at bedtime. nystatin (MYCOSTATIN) 100,000 unit/gram powder Apply topically 4 times daily. pantoprazole (PROTONIX) 40 mg EC tablet Take 1 tablet (40 mg total) by mouth 1 (one) time each day.90 tablet 1 pentoxifylline (TRENtal) 400 mg CR tablet Take 1 tablet (400 mg total) by mouth 3 (three) times a day with meals. 270 tablet 1 potassium chloride (KLOR-CON) 10 mEq CR tablet Take 1 tablet (10 mEq total) by mouth 2 (two) times a day. rOPINIRole (REQUIP) 0.25 mg tablet Take 3 tablets (0.75 mg total) by mouth 3 (three) times a day. 270 tablet 0 triamcinolone (NASACORT) 55 mcg nasal inhaler 1 [place] by Nasal route 2 times daily as needed for Other. UNABLE TO FIND Insulin Pen Needle (B-D ULTRAFINE III SHORT PEN) 31G X 8 MM Mis 30 Each 5 03/25/2024 Sig: Use to inject insulin daily in the evening [DISCONTINUED] cyclobenzaprine (FLEXERIL) 10 mg tablet Take 1 tablet (10 mg total) by mouth 3 (three) times a day if needed. [DISCONTINUED] NIFEdipine (ADALAT CC) 30 mg 24 hr tablet Take 1 tablet (30 mg total) by mouth 1 (one) time each day. [DISCONTINUED] oxyCODONE (ROXICODONE) 5 mg immediate release tablet Take 1 tablet (5 mg total) by mouth every 4 (four) hours if needed for severe pain. Max Daily Amount: 30 mg 42 tablet 0 ALLERGIES: Allergies Allergen Reactions Adhesive Tape-Silicones Amoxicillin Aspartame Headache Triggers migraines Azithromycin Rash Bee Venom Protein (Honey Bee) Codeine Rash Etodolac Swelling Gabapentin Swelling and Rash Swelling/edema Lactase Lactose Latex Rash Tape or bandaids Levofloxacin Other Myalgia and joint pain Methylprednisolone Other Muscle spasm Nortriptyline Other Fever, stomach cramps, dry mouth & throat Nut - Unspecified Other Tnf Antagonists- Pruritis and rash. Also swelling of throat with Remicade Also tried Humira and had a rash as well Pregabalin Other Reaction(s): Rash/Dermatitis Throat closing/swelling Shellfish Containing Products Hives PHYSICAL EXAM: Visit Vitals BP 125/84 Pulse (!) 120 Temp 36.1 ??C (97 ??F) (Temporal) Resp 17 Ht 1.638 m (64.5 ) Wt 108 kg (237 lb 9.6 oz) BMI 40.15 kg/m?? Smoking Status Never BSA 2.12 m?? General appearance: alert and oriented, in no acute distress Lungs: clear to auscultation bilaterally Heart: regular rate and rhythm, S1, S2 normal, no murmur, click, rub or gallop Extremities: extremities normal, warm and well-perfused; no cyanosis, clubbing, or edema Neurologic: Grossly normal LABS/IMAGING: Lab Results Component Value Date HGBA1C 12.0 (H) 06/02/2024 CHOL 184 06/02/2024 LDL 106 (A) 02/05/2024 HDL 85 06/02/2024 TRIG 128 06/02/2024 IMPRESSION: 1. Osteomyelitis, unspecified site, unspecified type ([facility]) 2. Type 2 diabetes mellitus with microalbuminuria, without long-term current use of insulin ([facility]) 3. Pure hypercholesterolemia 4. Psoriatic arthritis ([facility]) PLAN: 1. Patient with osteomyelitis of the foot, she is going to be finishing the oral antibiotics over the next 3 weeks there is a question of whether we might need to think about doing IV antibiotics or perhaps even amputation down the road but she is definitely looking to avoid this if possible. She is following with the infectious disease specialist and wound clinic and she will be seeing podiatry a s well. Her sugars have been doing better in the morning with the insulin. We discussed titration and continuing to work on this going forward. We do have a follow-up in September and she will be seeing our diabetic pharmacy technician trainee as well. She is trying to avoid taking prednisone every day but if she needs to take this to control her joint pains I am not sure we have much other choice of course this will likely make the sugars much harder to control but we could always titrate the insulin. I did refill the oxycodone and Flexeril which do seem to help with the pain. I have applied the code G2211 to this patient???s visit as the primary care provider dealing with (list the condition that is/are complex) leading to the extensive work up, and management associated with the medical care of this patient. This patient???s serious conditions and complex medical conditions also required several consultants needing management and coordination through my office. I have reviewed all information as it pertains to the management of this patient for final approval. Advised the patient to call me if any problems. Patient understands the plan. Patient is in agreement with the plan. documented in this encounter Plan of Treatment Upcoming Encounters Date Type Department Care Team (Late st Contact Info) Description 08/19/2024 11:00 AM EST Consult Adult Medicine [address] [phone] Zara Estrella PharmD [address] [place] [address] 08/20/2024 8:30 AM EST Office Visit Orthopedic Surgery [place] [id number] [phone] Julien Tracey, DPM [address] [address] 10/03/2024 8:45 AM EDT Office Visit Adult Medicine [address] [phone] Wale Shaver PA [address] [place] [phone] documented as of this encounter Visit Diagnoses Diagnosis Osteomyelitis, unspecified site, unspecified type (CMS/HCC)- Primary Type 2 diabetes mellitus with microalbuminuria, without long-term current use of insulin (CMS/HCC) Pure hypercholesterolemia Psoriatic arthritis (CMS/HCC) Psoriatic arthropathy documented in this encounter Discontinued Medications Medication Sig Discontinue Reason Start Date End Da te oxyCODONE (ROXICODONE) 5 mg immediate release tablet Take 1 tablet (5 mg total) by mouth every 4 (four) hours if needed for severe pain. Max Daily Amount: 30 mg 06/04/2024 07/23/2024 NIFEdipine (ADALAT CC) 30 mg 24 hr tablet Take 1 tablet (30 mg total) by mouth 1 (one) time each day. 08/14/2023 07/23/2024 cyclobenzaprine (FLEXERIL) 10 mg tablet Take 1 tablet (10 mg total) by mouth 3 (three) times a day if needed. Reorder 02/06/2024 07/23/2024 documented as of this encounter Historical Medications * This list may reflect changes made after this encounter. Medication Sig Dispensed Refills Start Date End Date cephalexin (KEFLEX) 500 mg capsule Take 2 capsules (1,000 mg total) by mouth 4 (four) times a day. 06/16/2024 07/28/2024 added in this encounter Additional Health Concerns Assessment Noted Time PHQ-9 Depression Total Score: 0 06/03/20 24 5:42 PM EST documented as of this encounter Care Teams Environmental Studies Professor Relationship Specialty Start Date End Date Wale Shaver PA [address] [place] [address] PCP - General Internal Medicine 07/05/20 documented as of this encounter
--- OUTSIDE RECORDS SUMMARY | 2024-08-09 11:17 | XMS_ITS | Encounter Summary ---
Author Organization [facility] Address [address] [place] [address] Care Team Providers Care Dovetail Machine Operator Name Role Phone Wale Shaver Primary Care Provider [phone] Encounter Details Date Type Department Care Team (Latest Contact Info) Description 10/02/2017 Jounce Therapeuticst Message [facility] [address] [place] [address] Hoist Cylinder Loader: Lisa Chau MD [address] [place] [id number] Prescription Question Social History Tobacco Use Types Packs/Day [...] PM EDT documented as of this encounter Plan of Treatment Not on file documented as of this encounter Visit Diagnoses Not on filedocumented in this encounter Care Teams Dovetail Machine Operator Relationship Specialty Start Date End Date Wale Shaver PCP - General Internal Medicine 09/24/20 documented as of this encounter
--- OUTSIDE RECORDS SUMMARY | 2024-08-09 11:17 | XMS_ITS | Continuity of Care Document ---
Author Organization [facility] Address [address] [place] [address] Phone Care Team Providers Care Campground Attendant Name Role Phone Vivek CHUA FACS RVT Coni NARAYANAN Unavailable Unavailable Medications Medication Instructions Dosage Effective Dates (start - stop) Status Comments TACROLIMUS (unknown strength) Not Available - Active AMLODIPINE BESYLATE (unknown strength) Not Available - Active ALBUTEROL SULFATE HFA (unknown strength) Not Available - Active VITAMIN B-12 (unknown strength) Not Available - Active BREO ELLIPTA (unknown strength) Not Available - Active CYCLOBENZAPRINE HCL (unknown strength) Not Available - Active CIMZIA (unknown strength) Not Available - Active MAXIDEX (unknown strength) Not Available - Active EPINEPHRINE (unknown strength) Not Available - Active FLUCONAZOLE (unknown strength) take 1 tablet by oral route once Not Available - Active JARDIANCE (unknown strength) Not Available - Active LEVOCETIRIZINE DIHYDROCHLORIDE (unknown strength) Not Available - Active MAGNESIUM (unknown strength) Not Available - Active MONTELUKAST SODIUM (unknown strength) Not Available - Active METFORMIN HCL (unknown strength) take 1 tablet by oral route 2 times every day with morning and evening meals Not Available - Active OXYCODONE-ACETAMINOPHE N (unknown strength) take 1 tablet by oral route every 6 hours as needed Not Available - Active POTASSIUM CHLORIDE (unknown strength) Not Available - Active ROPINIROLE HCL (unknown strength) Not Available - Active VITAMIN D3 (unknown strength) Not Available - Active ZYRTEC (unknown strength) take 1 tablet by oral route every day Not Available - Active PENTOXIFYLLINE (unknown strength) Not Available - Active DOXYCYCLINE HYCLATE (unknown strength) Not Available - Active PREDNISONE (unknown strength) Not Available - Active OXYCODONE HCL (unknown strength) Not Available - Active Procedures Procedure Date Duplex Scan-extrem Veins; Uni/ Office/Oupt E&M New Pt 30 Mins Advance Directives Directive Yes / No Effective Date File Name No Information Encounters Encounter Description Practice Location Reason(s) For Visit Diagnoses Date Provider Providers Copied on Encounter [facility] MD MICHAUD, [address] [place] [address] Dr De Leon [address], [id number], tel:[phone] [facility] [place] [facility] [place] No Information 3 Vivek Carrillo. [address] [place] [address], [place], [address], [place]. tel:[phone] Referring Provider: Wale Pacheco, [address] [place] [address], [address]. tel:[phone] [facility] MD MICHAUD, [address] [place] [address] Dr De Leon [address], [id number], [place] tel:[phone] [facility] [place] [facility] [place] Venous insufficiency (chronic) (peripheral)Pa in in right leg 3 Vivek Carrillo. [address] [place] [address], [address], [place]. tel:[phone] Referring Provider: Wale Pacheco, [address] [place] [address], [address]. tel:[phone] Office/Oupt E&M New Pt 30 Mins [facility] MD MICHAUD, [address] [place] [address] Dr De Leon [address], [id number], [place] tel:[phone] [facility] [place] Non-prs chronic ulcer oth prt right foot w unsp severityVenous insufficiency (chronic) (peripheral) 3 Vivek Carrillo. [address] [place] [address], [address], [place]. tel:[phone] Referring Provider: Wale Pacheco, [address] [place] [address], [place], [address]. tel:[phone] Family History Family Member Type Diagnosis Age At Onset No Information Payers Payer name Insurance type Covered green party ID Authoriza tion(s) Medicare GEREMIAS DONNELLY [id number] Medical Assistance GEREMIAS [id number] Social History Type Description Quantity Date Captured Comments Sex Female Smoking Status No Information Chief Complaint And Reason For Visit No Information Reason For Referral Reason For Referral No Information Plan Of Treatment Date Type Action Status Goal Diet education completed Referral Ordered: Weight management: Referral to physician timeframe: 3 Months (related to Body mass index (BMI) 45.0-49.9, adult) ordered History Of Present Illness Encounter Date Complaint History Of Prese nt Illness No Information Functional Status Date Functional Assessmen t No Information Instructions Date Instruction Additional Infor mation Giving Encouragement to exercise Related to Body mass index (BMI) 45.0-49.9, adult Diet education Related to Body mass index (BMI) 45.0-49.9, adult Compression stocking usage as conservative measure Related to 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
--- OUTSIDE RECORDS SUMMARY | 2024-08-09 11:17 | XMS_ITS | Clinical Summary ---
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 Name Role Phone Wale Shaver Primary Care Provider [phone] Allergies Active Allergy Reactions Criticality Noted Date Comments Adhesive Tape-Silicones 12/07/2020 Amoxicillin 06/20/2023 Aspartame Headache 09/27/2022 Triggers migraines Azithromycin Rash 06/27/2018 Bee Venom Protein (Honey Bee) 2020 Codeine Rash 06/27/2018 Etodolac Swelling 08/20/2017 Gabapentin Swelling,Rash 04/02/2015 Swelling/edema Lactase 12/07/2020 Lactose 04/02/2015 Latex Rash 11/12/2008 Tape or bandaids Levofloxacin Other 08/20/2017 Myalgia and joint pain Methylprednisolone Other 08/20/2017 Muscle spasm Nortriptyline Other 04/02/2015 Fever, stomach cramps, dry mouth & throat Nut - Unspecified 04/02/2015 Other 03/24/2020 Tnf Antagonists- Pruritis and rash. Also swelling of throat with Remicade Also tried Humira and had a rash as well Pregabalin 04/02/2015 Other Reaction(s): Rash/Dermatitis Throat closing/swelling Shellfish Containing Products Hives 2020 Medications Medication Sig Dispensed Refills Start Date End Date Status EPINEPHrine (EpiPen 2-Ramakrishna) 0.3 mg/0.3 mL injection Inject as directed. Active magnesium oxide 250 mg magnesium tablet Take 1 tablet (250 mg total) by mouth 1 (one) time each day. Active cholecalciferol (VITAMIN D-3) 5,000 Units tablet Take 1 tablet (5,000 Units total) by mouth 1 (one) time each day. Active montelukast (SINGULAIR) 10 mg tablet Take 1 tablet (10 mg total) by mouth at bedtime. Active cyanocobalamin (VITAMIN B-12) 500 mcg tablet Take 500 mcg by mouth daily. Active albuterol HFA (PROAIR HFA ; PROVENTIL HFA ; VENTOLIN HFA) 90 mcg/actuation inhaler Inhale 2 Puffs into the lungs every 4 hours as needed for Cough or Wheezing. 8 Active nystatin (MYCOSTATIN) 100,000 unit/gram powder Apply topically 4 times daily. Active triamcinolone (NASACORT) 55 mcg nasal inhaler 1 [place] by Nasal route 2 times daily as needed for Other. 2 Active levocetirizine (XYZAL) 5 mg tablet Take 5 mg by mouth daily. 2 Active hydrocortisone 2.5 % cream Apply twice daily for 7 to 14 days 2 Active certolizumab pegol (Cimzia Powder for Reconst) 400 mg (200 mg x 2 vials) kit Inject 200 mg into the skin. 2 Active FREESTYLE LANCETS [facility] Use to test blood sugars BID 3 Active hydrOXYzine HCL (ATARAX) 25 mg tablet Take 2 Tablets by mouth every 8 hours as needed for Itching. 4 Active blood sugar diagnostic (FreeStyle Lite Strips) test strip USE DIRECTED TO CHECK BLOOD SUGAR once daily 4 Active leucovorin 5 mg tablet TAKE 1 TABLET BY MOUTH THE DAY AFTER YOU TAKE METHOTREXATE 4 Active methotrexate/PF (RASUVO, PF, SUBQ) 4 Active acetaminophen-c odeine (TYLENOL #3) 300-30 mg per tablet Take 1 tablet by mouth 3 (three) times a day if needed. 4 Active dapagliflozin propanediol (FARXIGA) 10 mg tablet Take 1 tablet (10 mg total) by mouth 1 (one) time each day. 4 Active glipiZIDE (GLUCOTROL) 5 mg tablet Take 1 Tablet by mouth 2 times daily (before meals). 4 Active calcium carbonate (CALCIUM 600 ORAL) Take 1 Tablet by mouth. 2 Active loteprednol etabonate (Lotemax SM) 0.38 % drops,gel INSTILL 1 DROP INTO BOTH EYES TWICE DAILY FOR TWO WEEKS THEN 1 DROP EVERY DAY IN BOTH EYES FOR TWO WEEKS 4 Active potassium chloride (KLOR-CON) 10 mEq CR tablet Take 1 tablet (10 mEq total) by mouth 2 (two) times a day. 3 Active UNABLE TO FIND Insulin Pen Needle (B-D ULTRAFINE III SHORT PEN) 31G X 8 MM Misc 30 Each 5 03/25/2024 Sig: Use to inject insulin daily in the evening Active insulin glargine (LANTUS) 100 unit/mL injection Inject 10 units at bedtime every evening Active linezolid (ZYVOX) 600 mg tablet Route: Take 1 Tablet by mouth 2 times daily for 10 days. - Oral Active pentoxifylline (TRENtal) 400 mg CR tablet Take 1 tablet (400 mg total) by mouth 3 (three) times a day with meals. 270 tablet 1 4 Active metFORMIN XR (GLUCOPHAGE-XR) 500 mg 24 hr tablet Take 4 tablets (2,000 mg total) by mouth 1 (one) time each day. Do not crush, chew, or split. 360 tablet 3 4 Active FreeStyle Lancets 28 gauge lancets USE TO TEST BLOOD SUGAR TWICE DAILY 200 each 4 Active rOPINIRole (REQUIP) 0.25 mg tabletIndicatio ns:restless leg syndrome Take 3 tablets (0.75 mg total) by mouth 3 (three) times a day. 270 tablet 4 Active pantoprazole (PROTONIX) 40 mg EC tablet Take 1 tablet (40 mg total) by mouth 1 (one) time each day. 90 tablet 1 4 Active oxyCODONE (ROXICODONE) 5 mg immediate release tabletIndicatio ns:Osteomyeliti s, unspecified site, unspecified type (CMS/HCC) Take 1 tablet (5 mg total) by mouth every 4 (four) hours if needed for severe pain. Max Daily Amount: 30 mg 42 tablet 5 Active cyclobenzaprine (FLEXERIL) 10 mg tabletIndicatio ns:Osteomyeliti s, unspecified site, unspecified type (CMS/HCC) Take 1 tablet (10 mg total) by mouth 3 (three) times a day if needed for muscle spasms. 90 tablet 3 5 Active cyclobenzaprine (FLEXERIL) 10 mg tablet Take 1 tablet (10 mg total) by mouth 3 (three) times a day if needed. 4 07/23/19 25 Discontinued(Reo rder) NIFEdipine (ADALAT CC) 30 mg 24 hr tablet Take 1 tablet (30 mg total) by mouth 1 (one) time each day. 4 07/23/19 25 Discontinued oxyCODONE (ROXICODONE) 5 mg immediate release tablet Take 1 tablet (5 mg total) by mouth every 4 (four) hours if needed for severe pain. Max Daily Amount: 30 mg 42 tablet 4 07/23/19 25 Discontinued cephalexin (KEFLEX) 500 mg capsule Take 2 capsules (1,000 mg total) by mouth 4 (four) times a day. 4 07/28/19 25 Active Problems Problem Noted Date Diagnosed Date Morbid obesity with BMI of 60.0-69.9, adult 04/15 RA (rheumatoid arthritis) 04/24/2024 Chilblains 08/14/2023 Pyoderma gangrenosum 11/02/2022 Subclinical hypothyroidism 11/16/2020 Pure hypercholesterolemia 08/06/2020 Arm mass, right 04/21/2019 Type 2 diabetes mellitus wit h microalbuminuria, without long-term current use of insulin 12/04/2018 Hypokalemia 11/22/2018 Thyroid nodule 07/10/2018 Gastroesophageal reflux disease without esophagi tis 01/30/2018 Mild intermittent asthma without complication Wall's cyst of knee, left 08/28/2017 Overview (04/24/2024): 03/22/16 US guided aspiration, steroid injenction Elevated alkaline phosphatase level 08/28/2017 Fibromyalgia 08/28/2017 Multilevel degenerative disc disease 08/28/2017 Overview (04/24/2024): LS Xray 04/06/17- DDD L5-S1, multilevel degenerative spondylitic changes RLS (restless legs syndrome) 08/28/2017 Psoriatic arthritis 08/20/2017 Overview (04/24/2024): Onset 2013. RF and CCP negative. 2014-: No response to hydroxychloroquine even with the addition of sulfasalazine. 2015: Methotrexate started. Humira was added but no improvement. Remicade from late 2015 until fall - she says Remicade stopped because of elevated LFTs.. Fall 2016 Methotrexate continued and Enbrel in place of Remicade but she had questionable allergic response to Enbrel. July 2017: Cosentyx started but only 1 dose because she had URI symptoms.. Psoriasis 08/10/2017 Osteoarthritis 04/02/2015 Overview (04/24/2024): Spine, knee. LS Xray 04/06/17- DDD L5-S1, multilevel degenerative spondylitic changes Raynaud disease 04/02/2015 Overview (04/24/2024): On amlodipine 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 Migraine 03/29/2009 Encounters Date Type Department Care Team Description 07/23/2024 8:00 AM EST Office Visit Adult Medicine [address] [phone] Wale Shaver PA Osteomyelitis, unspecified site, unspecified type (CMS/[facility]) (Primary Dx); Type 2 diabetes mellitus with microalbuminuria, without long-term current use of insulin ([facility]); Pure hypercholesterolemi a; Psoriatic arthritis ([facility]/HCC) 07/18/2024 Telephone Adult Medicine [address] [phone] Wale Shaver PA Appointment 07/18/2024 Telephone Adult Medicine [address] [phone] Aliya Emerson LPN Fitting for DME (Dswo form for lancets) 07/08/2024 Telephone Adult Medicine [address] [phone] Wale Shaver PA Fitting for DME 06/10/2024 Telephone Adult Medicine [address] [phone] Gabriela Funes RN 06/04/2024 2:07 PM EST - 06/04/2024 11:59 PM EST Hospital Encounter Radiology Department - [address] [phone] Encounter for screening mammogram for malignant neoplasm of breast; Chilblains, sequela; Elevated alkaline phosphatase level; Fibromyalgia; Gastroesophageal reflux disease without esophagitis; Other migraine without status migrainosus, not intractable; Psoriasis; Psoriatic arthritis (CMS/HCC); Pure hypercholesterolemi a; Type 2 diabetes mellitus with microalbuminuria, without long-term current use of insulin (CMS/HCC); Subclinical hypothyroidism; Morbid obesity with BMI of 60.0-69.9, adult (CMS/HCC); Rheumatoid arthritis, involving unspecified site, unspecified whether rheumatoid factor present (CMS/HCC); Facial swelling Discharge Disposition: Home or Self Care 06/04/2024 9:00 AM EST Office Visit Adult Medicine [address] [phone] Wale Shaver PA Type 2 diabetes mellitus with microalbuminuria, without long-term current use of insulin (CMS/HCC) (Primary Dx); Encounter for screening mammogram for malignant neoplasm of breast; Chilblains, sequela; Elevated alkaline phosphatase level; Fibromyalgia; Gastroesophageal reflux disease without esophagitis; Other migraine without status migrainosus, not intractable; Psoriasis; Psoriatic arthritis (CMS/HCC); Pure hypercholesterolemi a; Subclinical hypothyroidism; Morbid obesity with BMI of 60.0-69.9, adult (CMS/HCC); Rheumatoid arthritis, involving unspecified site, unspecified whether rheumatoid factor present (CMS/HCC); Facial swelling from Last 3 Months Immunizations Name Administration Dates Next Due Influenza Quadravalent, MDCK , 0.5ml, preservative free (Flucelvax) 6mo and older 05/22/2023,04/19/2022 Influenza Quadravalent, MDCK , 0.5ml, with preservative (Flucelvax) 6mo and older 04/11/2021 Influenza Quadrivalent, 0.5m l, preservative free (Fluarix; FluLaval; Fluzone) ages 6mo and older (Afluria) 3yo and older 04/25/2020 Influenza trivalent, 0.5mL, preservative free (Fluarix; FluLaval; Fluzone) ages 6mo and older (Afluria) 3 years and older 04/12/2017,04/18/2016 Influenza trivalent, with pr eservative (Fluzone; Afluria) 6mo and older 04/25/2019,04/12/2019,04/06/2018,03/16,04/04/2017,03/17/2016 Influenza, Unspecified 04/11/2021,04/25/2019 Pfizer SARS-CoV-2 COVID-19, mRNA, LNP-S, preservative free 04/15/2021,02/03/2021,01/12/2021 Pneumococcal conjugate 13 va lent (Prevnar 13, PCV13) 2mo and older 03/21/2016 Pneumococcal polysaccharide 23 valent (Pneumovax 23) 2yo and older 04/19/2022,2016 Tdap Tetanus diptheria acell ular pertussis (Boostrix; Adacel) 7yo and older 04/02/2015,04/30/2013 Surgical History Surgery Date Site/Laterality Comments OTHER SURGICAL HISTORY PROCEDURE:tonsils STOMACH SURGERY PROCEDURE:STOMACH SURGERY;COMMENT:gallbladder KNEE ARTHROSCOPY PROCEDURE:KNEE ARTHROSCOPY;COMMENT:right knee PATELLA REALIGNMENT PROCEDURE:PATELLA REALIGNMENT;COMMENT:RIGHT KNEE ULNAR NERVE REPAIR PROCEDURE:ULNAR NERVE REPAIR;COMMENT:RIGHT HYSTERECTOMY PROCEDURE:HYSTERECTOMY KNEE ARTHROSCOPY 2007 Right PROCEDURE: WI ARTHROSCOPY KNEE DIAGNOSTIC W/WO SYNOVIAL BX SPX; COMMENT: x 2 arthroscopic TONSILLECTOMY PROCEDURE: HISTORICAL TONSILLECTOMY ELBOW SURGERY 11/24/2016 Right PROCEDURE: HISTORICAL ELBOW SURGERY; COMMENT: Open ulnar nerve neurolysis w/ anterior subcutaneous transposition CHOLECYSTECTOMY 2006 PROCEDURE: HISTORICAL CHOLECYSTECTOMY OTHER SURGICAL HISTORY 05/29/2017 PROCEDURE: INJECT NERVE BLOCK,VERT FACET JOINT; COMMENT: L4-5, L5-S1 (05/2016 T5-6, 06/2015 T5-6, 04/2014 C5-6, C6-7, 09/2013 R T12, 06/2013 R T10 and T11, 02/2013 T4-5, 5-6) KNEE SURGERY PROCEDURE: HISTORICAL KNEE SURGERY; COMMENT: patellar realignment, removal of harward COLONOSCOPY 05/04/2020 PROCEDURE: HISTORICAL COLONOSCOPY; COMMENT: small polyp - dr. stevens UPPER GASTROINTESTINAL ENDOSCOPY 05/04/2020 PROCEDURE: WI UPPER GI ENDOSCOPY PERFORMED; COMMENT: gastritis - dr. stevens Medical History Medical History Date Comments Hypertension DX:Hypertension Rheumatoid arthritis ([facility]) D X:Rheumatoid arthritis ([facility]) Fibromyalgia DX:Fibromyalgia GERD (gastroesophageal reflux disease) DX:GERD (gastroesophageal reflux disease) Asthma DX:Asthma Rheumatoid arthritis ([facility]) D X:Rheumatoid arthritis ([facility]) Morbid obesity with BMI of 5 0.0-59.9, adult ([facility]) 09/07/2005 DX:Morbid obesity with BMI o f 50.0-59.9, adult ([facility]) Psoriasis 08/10/2017 DX:Psoriasis Migraine 03/29/2009 DX:Migraine 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 DX:Scha mberg's capillaritis Type 2 diabetes mellitus wit hout complications ([facility]) 08/01/2017 DX:Type 2 diabetes mellitus without complications ([facility]) Raynaud disease 04/02/2015 DX:Raynaud disea se; COMMENT: On amlodipine Osteoarthritis 04/02/2015 DX:Osteoarthriti s; COMMENT: Spine, knee RA (rheumatoid arthritis) ([facility]) 05/11/2015 DX:RA (rheumatoid arthritis) ([facility]); COMMENT: Seronegative with high markers of inflammation- probably psoriatic arthritis. . R elbow degenerative arthritis from RA-now s/p ortho surgery 11/24/2016 Wall's cyst of knee, left 08/28/2017 DX:Ba ker's cyst of knee, left; COMMENT: 03/22/16 US guided aspiration, steroid injenction Elevated alkaline phosphatase level 08/28/2017 DX:Elevated alkaline phosphatase level Fibromyalgia 08/28/2017 DX:Fibromyalgia Multilevel degenerative disc disease 08/28/2017 DX:Multilevel degenerative disc disease; COMMENT: LS Xray 04/06/17- DDD L5-S1, multilevel degenerative spondylitic changes RLS (restless legs syndrome) 08/28/2017 DX: RLS (restless legs syndrome) History of COVID-19 07/18/2022 DX:History o f COVID-19 Chilblains 08/14/2023 DX:Chilblains Family History Medical History Relation Name Comments Diabetes Father with retinal bl eeding, obesity, hypertension,CAD?cabg Heart failure Father Hypertension Father Heart attack Maternal Grandfather fr om [place] @ 60 Osteoporosis Maternal Grandmother Rheum arthritis Maternal Grandmother Arthritis Mother DM,HTN, Hypothy roid, Carotid stenosis, abdominal aortic stenosis Diabetes Mother Heart disease Mother Hypertension Mother Thyroid disease Mother Diabetes Paternal Grandfather Migrain es Coronary artery disease Paternal Grandmother Other: aortic aneursym Paternal Grandmother Cancer Sister 1 Thyroid disease Sister 1 Hyperthyroidism Sister 2 Other: Basal Cell Carcinoma Sister 2 Hyperthyroidism Sister 3 Other: basal cell carcinoma Sister 3 Relation Name Status Comments Father Alive CABG, dm, htn Maternal Grandfather Maternal Grandmother Mother Alive dm, htn, thyroi d, joint disease Paternal Grandfather Paternal Grandmother Sister 1 Sister 2 Alive Sister 3 Alive Social History Tobacco Use Types Packs/Day Years [...] file Not on file Not on file Obstetrics History Last Filed Vital Signs Vital Sign Reading [...] Mass Index 40.15 07/23/2024 8:16 AM EST Plan of Treatment Upcoming Encounters Date Type Department Care Team (Late st Contact Info) Description 08/19/2024 11:00 AM EST Consult Adult Medicine [address] [phone] Zara Estrella, MohanD [address] [place], [place] [phone] 08/20/2024 8:30 AM EST Office Visit Orthopedic Surgery - [place] [address] [phone] Julien Tracey, DPM [address] [id number] 10/03/2024 8:45 AM EDT Office Visit Adult Medicine [address] [phone] Wale Shaver, PA [address] [place], [place] [phone] Health Maintenance Due Date Last Done Comments Breast Cancer Screening 1973 Hepatitis A Vaccines (1 of 2 - Risk 2-dose series) 1992 Hepatitis B Vaccines (1 of 3 - 19+ 3-dose series) 1992 Zoster Vaccines (1 of 2) 1992 HIV Screening 05/02/2020 Medicare Annual Wellness Visit 05/02/2020 Social Influencers of Health Screening 05/02/2020 COVID-19 Vaccine ( season) 2024 04/15/2021, 02/03/2021, 01/12/2021 Diabetes: Annual Foot Exam 09/10/2024 09/10/2023 Diabetes: Annual Retina Eye Exam 09/18/2024 09/19/2023 Diabetes: Blood Sugar Control Test (HGBA1C) 11/30/2024 06/02/2024, 02/05/2024, 02/05/2024 Diabetes: Annual Urine Albumin-Creatinine Ratio (uACR) 02/04/2025 02/05/2024, 12/17/2019 DTaP,Tdap,and Td Vaccines (3 - Td or Tdap) 04/02/2025 04/02/2015, 04/30/2013 Diabetes: Annual GFR (Glomerular Filtration Rate) 06/02/2025 06/02/2024, 02/05/2024, 02/05/2024, Additional history exists Depression Screening 06/03/2025 06/03/2024, 01/22/20 24 Cervical Cancer Screening: HPV 05/24/2027 05/24/2022 Cholesterol Screening (Lipid Panel) 06/02/2029 06/02/2024, 02/05/2024, 02/05/2024, Additional history exists Colorectal Cancer Screening: Colonoscopy 05/04/2030 05/04/2020 Pneumococcal Vaccine: Pediatrics (0 to 5 Years) and At-Risk Patients (6 to 64 Years) (4 of 4 - PPSV23 or PCV20) 2038 04/19/2022, 2016, 03/21/2016 Hepatitis C Screening Completed 08/30/2018, 015 Influenza Vaccine Completed 05/19/2024, , 06/15/2022, Additional history exists HIB Vaccines Aged Out No longer eligi ble based on patient's age to complete this topic HPV Vaccines Aged Out No longer eligi ble based on patient's age to complete this topic IPV Vaccines Aged Out No longer eligi ble based on patient's age to complete this topic MMR Vaccines Aged Out No longer eligi ble based on patient's age to complete this topic Meningococcal ACWY Vaccine Aged Out N o longer eligible based on patient's age to complete this topic RSV Immunization Patients Under 20 months Aged Out No longer eligible based on patient's age to complete this topic Varicella Vaccines Aged Out No longer eligible based on patient's age to complete this topic Procedures Procedure Name Priority Date/Time Associated Diagnosis Comments MR BRAIN WO AND W CONTRAST Routine 06/04/2024 3:23 PM EST Encounter for screening mammogram for malignant neoplasm of breast Chilblains, sequela Elevated alkaline phosphatase level Fibromyalgia Gastroesophageal reflux disease without esophagitis Other migraine without status migrainosus, not intractable Psoriasis Psoriatic arthritis (CMS/HCC) Pure hypercholesterolemi a Type 2 diabetes mellitus with microalbuminuria, without long-term current use of insulin (CMS/HCC) Subclinical hypothyroidism Morbid obesity with BMI of 60.0-69.9, adult (CMS/HCC) Rheumatoid arthritis, involving unspecified site, unspecified whether rheumatoid factor present (CMS/HCC) Facial swelling CBC WITH AUTO DIFFERENTIAL Routine 06/02/2024 10:05 AM EST Gastroesophageal reflux disease without esophagitis Psoriatic arthritis (CMS/HCC) Hypokalemia Pure hypercholesterolemi a Type 2 diabetes mellitus with microalbuminuria, without long-term current use of insulin ([facility]) Thyroid nodule Subclinical hypothyroidism Morbid obesity with BMI of 60.0-69.9, adult ([facility]) Fibromyalgia THYROID STIMULATING HORMONE WITH REFLEX TO FREE T4 AND FREE T3 Routine 06/02/2024 10:05 AM EST Gastroesophageal reflux disease without esophagitis Psoriatic arthritis (CMS/HCC) Hypokalemia Pure hypercholesterolemi a Type 2 diabetes mellitus with microalbuminuria, without long-term current use of insulin ([facility]) Thyroid nodule Subclinical hypothyroidism Morbid obesity with BMI of 60.0-69.9, adult ([facility]) Fibromyalgia CBC AND DIFFERENTIAL Routine 06/02/2024 10:05 AM EST Gastroesophageal reflux disease without esophagitis Psoriatic arthritis (CMS/HCC) Hypokalemia Pure hypercholesterolemi a Type 2 diabetes mellitus with microalbuminuria, without long-term current use of insulin ([facility]) Thyroid nodule Subclinical hypothyroidism Morbid obesity with BMI of 60.0-69.9, adult ([facility]) Fibromyalgia COMPREHENSIVE METABOLIC PANEL Routine 06/02/2024 10:05 AM EST Gastroesophageal reflux disease without esophagitis Psoriatic arthritis (CMS/HCC) Hypokalemia Pure hypercholesterolemi a Type 2 diabetes mellitus with microalbuminuria, without long-term current use of insulin ([facility]) Thyroid nodule Subclinical hypothyroidism Morbid obesity with BMI of 60.0-69.9, adult ([facility]) Fibromyalgia HEMOGLOBIN A1C Routine 06/02/2024 10:05 AM EST Gastroesophageal reflux disease without esophagitis Psoriatic arthritis (CMS/HCC) Hypokalemia Pure hypercholesterolemi a Type 2 diabetes mellitus with microalbuminuria, without long-term current use of insulin ([facility]) Thyroid nodule Subclinical hypothyroidism Morbid obesity with BMI of 60.0-69.9, adult ([facility]) Fibromyalgia LIPID PANEL WITH REFLEX TO DIRECT LDL Routine 06/02/2024 10:05 AM EST Gastroesophageal reflux disease without esophagitis Psoriatic arthritis (CMS/HCC) Hypokalemia Pure hypercholesterolemi a Type 2 diabetes mellitus with microalbuminuria, without long-term current use of insulin (CMS/HCC) Thyroid nodule Subclinical hypothyroidism Morbid obesity with BMI of 60.0-69.9, adult (CMS/HCC) Fibromyalgia HM URINE ALBUMIN CREATININE RATIO Routine 02/05/2024 HM DEPRESSION SCREENING Routine 01/22/2024 HM DIABETES EYE EXAM Routine 09/19/2023 DIABETES FOOT EXAM Routine 09/10/2023 HM HPV Routine 05/24/2022 COLONOSCOPY Routine 05/04/2020 HEPATITIS C SCREENING Routine 04/21/2015 from Last 3 Months or Most Recently Relevant to Health Maintenance Results * MR Brain wo and w Contrast (06/04/2024 3:23 PM EST) Anatomical Region Laterality Modality Head and Neck Magnetic Resonan ce 06/04/2024 11:4 9 PM EST Narrative 06/06/2024 9:54 AM EST MRI of the head without and with intravenous contrast. History facial trauma. Right facial swelling. Migraines. Examination was performed on 1.5 Layla magnet without administration of intravenous contrast. Postcontrast images were obtained after administration of 20 mL of DOTAREM. Head CT from 02/25/2024 was reviewed. There is no evidence of midline shift. There is no evidence of extra axial blood fluid collections. There is dilatation of the atrium ??of the left lateral ventricle due to presence of the intraventricular arachnoid cyst. It measures approximately 3 x 1.7 x 2.5 cm. It didn't change significantly since previous CT scan. There are areas of increased T2 and FLAIR signal in the periventricular white matter of both cerebral hemispheres as well as a few foci in the deep white matter of the right posterior frontal lobe. There is no focal areas of restricted diffusion. There is no abnormal enhancing lesions in the brain and cerebellum. Paranasal sinuses and mastoid processes are aerated. CONCLUSIONS: Findings suggestive of intraventricular arachnoid cyst in the atrium ??of the left lateral ventricle. Periventricular white matter signal abnormalities and few foci of increased FLAIR signal in the deep white matter of the right frontal lobe. Appearance is nonspecific. It could be due to chronic small vessel ischemia, infectious/inflammatory process migraine, among the other etiologies. -------- FINAL REPORT -------- Dictated By: Lexus Webb Dictated Date: 06/04/2024 23:49 ET Assigned Physician: Lexus Webb Reviewed and Electronically Signed By: Lexus Webb Signed Date: 06/06/2024 09:54 ET Workstation ID: [id number] Transcribed By: Self Edit Transcribed Date: 06/04/2024 23:56 ET Procedure Note Lexus Webb MD - 06/06/2024 MRI of the head without and with intravenous contrast. History facial trauma. Right facial swelling. Migraines. Examination was performed on 1.5 Layla magnet without administration ofintravenous contrast. Postcontrast images were obtained afteradministration of 20 mL of DOTAREM. Head CT from 02/25/2024 was reviewed. There is no evidence of midline shift. There is no evidence of extra axialblood fluid collections. There is dilatation of the atrium of the leftlateral ventricle due to presence of the intraventricular arachnoid cyst.It measures approximately 3 x 1.7 x 2.5 cm. It didn't change significantlysince previous CT scan. There are areas of increased T2 and FLAIR signal in the periventricularwhite matter of both cerebral hemispheres as well as a few foci in thedeep white matter of the right posterior frontal lobe. There is no focalareas of restricted diffusion. There is no abnormal enhancing lesions inthe brain and cerebellum. Paranasal sinuses and mastoid processes are aerated. CONCLUSIONS: Findings suggestive of intraventricular arachnoid cyst in theatrium of the left lateral ventricle. Periventricular white matter signalabnormalities and few foci of increased FLAIR signal in the deep whitematter of the right frontal lobe. Appearance is nonspecific. It could bedue to chronic small vessel ischemia, infectious/inflammatory processmigraine, among the other etiologies. -------- FINAL REPORT -------- Dictated By: Lexus Webb Dictated Date: 06/04/2024 23:49 ET Assigned Physician: Lxeus Webb Reviewed and Electronically Signed By: Lexus Webb Signed Date: 06/06/2024 09:54 ET Workstation ID: [id number] Transcribed By: Self Edit Transcribed Date: 06/04/2024 23:56 ET Wale PRATT IMG MRI PROCEDURE S * Thyroid stimulating hormone with reflex to free t4 and free t3 (06/02/2024 10:05 AM EST) Pathologist [facility] TSH 1.68 0.40 - 4.00 mcIU/mL LAB CHEMISTRY METHOD 06/02/2024 2:56 PM [facility] Blood Venous blood specimen / Unknown Venipuncture / Unknown 06/02/2024 10:05 AM EST 06/02/2024 10:05 AM EST [facility] PRATT LAB BLOOD ORDERAB LES [facility] [address] [place] [address], * Lipid panel with reflex to direct LDL (06/02/2024 10:05 AM EST) Cholesterol 184 0 - 200 mg/dL LAB CHEMISTRY METHOD 06/02/2024 2:57 PM EST [facility] Triglycerides 128 0 - 150 mg/dL LAB CHEMISTRY METHOD 06/02/2024 2:57 PM EST [facility] HDL 85 >=40 mg/dL LAB CHEMISTRY METHOD 06/02/2024 2:57 PM EST [facility] LDL Calculated 73 0 - 100 mg/dL LAB CHEMISTRY METHOD 06/02/2024 2:57 PM EST [facility] VLDL Cholesterol Alexander 25.6 mg/dL LAB CHEMISTRY METHOD 06/02/2024 2:57 PM EST [facility] Non HDL Chol. (LDL+VLDL) 99 <145 mg/dL LAB CHEMISTRY METHOD 06/02/2024 2:57 PM EST [facility] Chol/HDL Ratio 2.2 0.0 - 4.4 LAB CHEMISTRY METHOD 06/02/2024 2:57 PM EST [facility] Blood Venous blood specimen / Unknown Venipuncture / Unknown 06/02/2024 10:05 AM EST 06/02/2024 10:05 AM EST [facility] PRATT LAB BLOOD ORDERAB [facility] [address] [place] [address], * (ABNORMAL) CBC auto differential (06/02/2024 10:05 AM EST) WBC 7.8 4.8 - 10.8 K/mcL LAB HEMETOLOGY METHOD 06/02/2024 1:15 PM [facility] RBC 4.60 3.80 - 4.80 M/mcL LAB HEMETOLOGY METHOD 06/02/2024 1:15 PM [facility] Hemoglobin 14.9 11.5 - 16.0 g/dL LAB HEMETOLOGY METHOD 06/02/2024 1:15 PM EST [facility] Hematocrit 45.7 35.0 - 47.0 % LAB HEMETOLOGY METHOD 06/02/2024 1:15 PM [facility] MCV 99.3(H) 79.0 - 98.0 FL LAB HEMETOLOGY METHOD 06/02/2024 1:15 PM [facility] MCH 32.4(H) 27.0 - 32.0 pcg LAB HEMETOLOGY METHOD 06/02/2024 1:15 PM [facility] MCHC 32.6 32.0 - 37.0 g/dL LAB HEMETOLOGY METHOD 06/02/2024 1:15 PM [facility] RDW 13.2 11.0 - 15.0 % LAB HEMETOLOGY METHOD 06/02/2024 1:15 PM [facility] Platelets 266 130 - 400 K/mcL LAB HEMETOLOGY METHOD 06/02/2024 1:15 PM [facility] MPV 10.1 7.0 - 11.0 FL LAB HEMETOLOGY METHOD 06/02/2024 1:15 PM [facility] NRBC 0.0 <1.0 % LAB HEMETOLOGY METHOD 06/02/2024 1:15 PM [facility] NRBC Absolute 0.00 <0.10 K/mcL LAB HEMETOLOGY METHOD 06/02/2024 1:15 PM [facility] Neutrophils Relative 62.6 % LAB HEMETOLOGY METHOD 06/02/2024 1:15 PM [facility] Lymphocytes Relative 27.0 % LAB HEMETOLOGY METHOD 06/02/2024 1:15 PM [facility] Monocytes Relative 8.2 % LAB HEMETOLOGY METHOD 06/02/2024 1:15 PM [facility] Eosinophils Relative 1.4 % LAB HEMETOLOGY METHOD 06/02/2024 1:15 PM [facility] Basophils Relative 0.4 % LAB HEMETOLOGY METHOD 06/02/2024 1:15 PM [facility] Immature Granulocytes Relative 0.4 % LAB HEMETOLOGY METHOD 06/02/2024 1:15 PM [facility] Neutrophils Absolute 4.86 1.50 - 7.00 K/mcL LAB HEMETOLOGY METHOD 06/02/2024 1:15 PM [facility] Lymphocytes Absolute 2.10 1.00 - 5.00 K/[facility] LAB HEMETOLOGY METHOD 06/02/2024 1:15 PM EST [facility] Monocytes Absolute 0.64 0.20 - 1.00 K/[facility] LAB HEMETOLOGY METHOD 06/02/2024 1:15 PM EST [facility] Eosinophils Absolute 0.11 0.00 - 0.50 K/[facility] LAB HEMETOLOGY METHOD 06/02/2024 1:15 PM EST [facility] Basophils Absolute 0.03 0.00 - 0.20 K/[facility] LAB HEMETOLOGY METHOD 06/02/2024 1:15 PM EST [facility] Immature Granulocytes Absolute 0.03 0.00 - 0.03 K/[facility] LAB HEMETOLOGY METHOD 06/02/2024 1:15 PM EST [facility] Blood Venous blood specimen / Unknown Venipuncture / Unknown 06/02/2024 10:05 AM EST 06/02/2024 10:05 AM EST [facility] LAB BLOOD ORDERAB [facility] [address] [place] [address], * (ABNORMAL) Hemoglobin A1c (06/02/2024 10:05 AM EST) Hemoglobin A1C 12.0(H) <6.5 % LAB CHEMISTRY METHOD 06/03/2024 7:42 PM EST [facility] Mean Bld Glu Estim. 298 mg/dL LAB CHEMISTRY METHOD 06/03/2024 7:42 PM EST [facility] Blood Venous blood specimen / Unknown Venipuncture / Unknown 06/02/2024 10:05 AM EST 06/02/2024 10:05 AM EST [facility] LAB BLOOD ORDERAB [facility] [address] [place] [address], [place] [phone] * (ABNORMAL) Comprehensive metabolic panel (06/02/2024 10:05 AM EST) Sodium 140 133 - 145 mmol/L LAB CHEMISTRY METHOD 06/02/2024 2:56 PM EST [facility] Potassium 3.9 3.5 - 5.5 mmol/L LAB CHEMISTRY METHOD 06/02/2024 2:56 PM [facility] Chloride 105 96 - 110 mmol/L LAB CHEMISTRY METHOD 06/02/2024 2:56 PM [facility] CO2 26 21 - 32 mmol/L LAB CHEMISTRY METHOD 06/02/2024 2:56 PM [facility] Anion Gap 9 3 - 11 LAB CHEMISTRY METHOD 06/02/2024 2:56 PM [facility] Glucose 261(H) 70 - 100 mg/dL LAB CHEMISTRY METHOD 06/02/2024 2:56 PM [facility] BUN 10 5 - 25 mg/dL LAB CHEMISTRY METHOD 06/02/2024 2:56 PM [facility] Creatinine 0.66 0.50 - 1.10 mg/dL LAB CHEMISTRY METHOD 06/02/2024 2:56 PM [facility] eGFR 107 >=60 mL/min/1. 73m2 LAB CHEMISTRY METHOD 06/02/2024 2:56 PM [facility] Comment:Calculation based on the??Chronic Kidney Disease Epidemiology Collaboration (CKD-EPI) equation refit??without adjustment for race. BUN/Creatinine Ratio 15.2 LAB CHEMISTRY METHOD 06/02/2024 2:56 PM [facility] Calcium 9.4 8.5 - 10.5 mg/dL LAB CHEMISTRY METHOD 06/02/2024 2:56 PM [facility] AST (SGOT) 18 10 - 42 unit/L LAB CHEMISTRY METHOD 06/02/2024 2:56 PM EST [facility] ALT (SGPT) 29 10 - 60 unit/L LAB CHEMISTRY METHOD 06/02/2024 2:56 PM EST [facility] Alkaline Phosphatase 184(H) 42 - 121 unit/L LAB CHEMISTRY METHOD 06/02/2024 2:56 PM [facility] Total Protein 6.8 6.0 - 8.0 g/dL LAB CHEMISTRY METHOD 06/02/2024 2:56 PM EST [facility] Albumin 3.5 3.2 - 5.0 g/dL LAB CHEMISTRY METHOD 06/02/2024 2:56 PM [facility] Total Bilirubin 0.4 0.0 - 1.4 mg/dL LAB CHEMISTRY METHOD 06/02/2024 2:56 PM [facility] Blood Venous blood specimen / Unknown Venipuncture / Unknown 06/02/2024 10:05 AM EST 06/02/2024 10:05 AM EST [facility] PRATT LAB BLOOD ORDERAB [facility] [address] [place] [address], * Urine Albumin Creatinine Ratio (02/05/2024) [facility] Urine Albumin Creatinine Ratio ABSTRACTED Historical Provider [facility] Depression Screening (01/22/2024) [facility] Depression Screening ABSTRACTED [facility] Provider [facility] * Diabetes Eye Exam (09/19/2023) [facility] Diabetes: Annual Retina Eye Exam ABSTRACTED Historical Provider [facility] * Diabetes Foot Exam (09/10/2023) [facility] Diabetes: Annual Foot Exam ABSTRACTED Historical Provider MD [facility] Cervical Cancer Screening: HPV (05/24/2022) [facility] Cervical Cancer Screening: HPV no interpretation , abstracted Historical Provider MD GHAZALA CHADWICK * Colonoscopy (05/04/2020) [facility] Colonoscopy no interpretation , abstracted Anatomical Region Laterality Modality Other Historical Provider MD GHAZALA CHADWICK * Hepatitis C Screening (04/21/2015) [facility] Hepatitis C Screening ABSTRACTED Historical Provider MD GHAZALA Vital from Last 3 Months or Most Recently Relevant to Health Maintenance Care Teams Abrasive Coating Machine Operator Relationship Specialty Start Date End Date Wale Shaver PA [address] [place] [address] PCP - General Internal Medicine 07/05/20
--- OUTSIDE RECORDS SUMMARY | 2024-08-09 11:17 | XMS_ITS | Continuity of Care Document ---
Author Organization [facility] Address [address] [place] [address] Phone Care Team Providers Care Retail Store Associate Name Role Phone Sally Nolan MD Unavailable Unavailable Allergies, Adverse Reactions, Alerts Substance Reaction Status Criticality milk Active No Information shellfish derived heart races Active No Informa tion egg Stomach Pain Active No Information latex rash Active No Information Medications Medication Instructions Dosage Effective Dates (start - stop) Status Comments amlodipine 5 mg Tab TAKE ONE TABLET BY MOUTH EVERY DAY 5 MG - Active Topamax 25 mg Tab take 1 by Oral route every day 1 - Active increase by 25mg/wk until 200mg/day Flonase 50 mcg/Actuation Nasal Darragh inhale 1 spray by Intranasal route 2 times every day in each nostril 1.00 spray - Active Procedures Procedure Date Ua Dipstik/tablet; Non-auto W/ 13 OFFICE/OUTPATIENT VISIT, EST Cult Bacterial Urin; Rosendo Audubon 13 Smear Prim W/intrpt; Wet Mnt W 13 Offic/outpt E&m Estab Low-mod 2 Ag-immuno Mx Stp; Influen A/b- 12 Cult Bacterial Urin; Rosendo Audubon 12 Transferase; Aspartate Amino Routine Venipuncture Glu; Rosendo Lipid Panel Ua Dipstik/tablet; Non-auto W/ 12 Transferase; Alanine Amino Smear Prim W/interpt; Routine 2 OFFICE/OUTPATIENT VISIT, EST OFFICE/OUTPATIENT VISIT, EST Ua Dipstik/tablet; Non-auto W/ 12 Cult Bacterial Urin; Rosendo Audubon 12 OFFICE/OUTPATIENT VISIT, EST URINALYSIS, AUTO, W/O SCOPE Cult Bacterial Urin; Rosendo Audubon 12 OFFICE/OUTPATIENT VISIT, EST OFFICE/OUTPATIENT VISIT, EST Arthrocentesis/aspir/inj; Esther 12 Methylprednisolone Acetate-40 2 OFFICE/OUTPATIENT VISIT, EST URINALYSIS, AUTO, W/O SCOPE Cult Bacterial Urin; Rosendo Audubon 12 OFFICE/OUTPATIENT VISIT, EST Amylase Routine Venipuncture Hiv-1/Hiv-2, Single Assay Thyroid Stim Hormone Lipoprotein Direct Measur; Hdl 12 Glu; Rosendo Electrolyte Panel Creatinine; Bld Chol Serum Tot Complete Cbc W/Auto Diff Wbc Calcium; Tot Urea Nitro; Rosendo Bilirubin; Tot Transferase; Aspartate Amino Albumin; Serum Transferase; Alanine Amino OFFICE/OUTPATIENT VISIT, EST URINALYSIS, AUTO, W/O SCOPE Cult Bacterial Urin; Rosendo Audubon 12 Smear Prim W/interpt; Routine 2 OFFICE/OUTPATIENT VISIT, EST Offic/outpt E&m Estab Low-mod 2 Offic/outpt E&m Estab Low-mod 2 OFFICE/OUTPATIENT VISIT, EST OFFICE/OUTPATIENT VISIT, EST Offic/outpt E&m Estab Low-mod 1 OFFICE/OUTPATIENT VISIT, EST OFFICE/OUTPATIENT VISIT, EST Routine Venipuncture Thyroid Stim Hormone Preven Meds E&m Estab Pt; 18-3 11 OFFICE/OUTPATIENT VISIT, EST OFFICE/OUTPATIENT VISIT, EST OFFICE/OUTPATIENT VISIT, EST OFFICE/OUTPATIENT VISIT, EST Offic/outpt E&m Estab Low-mod 1 Offic/outpt E&m Estab Low-mod 1 No Charge Encounter Offic/outpt E&m Estab Low-mod 1 Advance Directives Directive Yes / No Effective Date File Name No Information Encounters Encounter Description Practice Location Reason(s) For Visit Diagnoses Date Provider Providers Copied on Encounter [address], [address] [place] [address], tel:[phone] [facility] No Information 6 Ovidio Zavala. [address] [place] [address], [facility], . tel:[phone] [facility] , [address] [place] [address], [id number], tel:[phone] [facility] No Information 3 Jared Mike. [address] [place] [address], [facility], . tel:[phone] OFFICE/OUTPA TIENT VISIT, [facility] , [address] [place] [address], [id number], [place] tel:[phone] [facility] urinary symptoms (acute) (chief complaint) DYSURIA 3 No Information [facility] , [address] [place] [address], [address] [place] [address], tel:[phone] [facility] DYSURIA 3 No Information Offic/outpt E&m Estab Low-mod [address], [place] , [place], [address] [place] [address], [place] tel:[phone] [facility] cold symptoms (chief complaint) Viral Infection, Unspecified 2 Diane Hannah. [address], [place], [facility], . tel:[phone] OFFICE/OUTPA TIENT VISIT, [facility] , [address] [place] [address], [address] [place] [address], [place] tel:[phone] [facility] flank pain (chief complaint) ABDMNAL PAIN GENERALIZEDBac kache 2 Jared Mckeon. [address] [place] [address], [facility], [place]. tel:[phone] OFFICE/OUTPA TIENT VISIT, [facility] , [address] [place] [address], [address] [place] [address], [place] tel:[phone] Acute Care Pod flank pain (chief complaint) Backache Dec- 2 Cy Orozcot. [address] [place] [address], [facility], [place]. tel:[phone] OFFICE/OUTPA TIENT VISIT, [facility] , [address] [place] [address], [address] [place] [address], [place] tel:[phone] [facility] flank pain (chief complaint) Cardiovascular ScreeningABDMN AL PAIN GENERALIZED 2 Jared Mckeon. [address] [place] [address], [facility], [place]. tel:[phone] OFFICE/OUTPA TIENT VISIT, [facility] , [address] [place] [address], [address] [place] [address], [place] tel:[phone] [facility] urinary symptoms (chief complaint) DYSURIA Dec-0 2 Wesley Chavarria. [address], [place], [place], [facility], [place]. tel:[phone] OFFICE/OUTPA TIENT VISIT, [facility] , [address] [place] [address], [address] [place] [address], tel:[phone] Acute Care Pod nausea (chief complaint) NAUSEA ALONE 2 No Information [facility] , [address] [place] [address], [address] [place] [address], tel:[phone] [facility] hip pain (chief complaint) ENTHESOPATHY OF HIP 2 Sánchezmarta Mckeon. [address] [place] [address], [facility], . tel:[phone] OFFICE/OUTPA TIENT VISIT, [facility] , [address] [place] [address], [id number], [place] tel:[phone] [facility] leg pain (chief complaint) LOC OSTEOAR NOS-SITE NEC 2 Jared Mckeon. [address] [place] [address], [facility], . tel:[phone] [facility] , [address] [place] [address], [address] [place] [address], tel:[phone] [facility] MALAISE AND FATIGUE NECSCREEN-CARD IOVASC NEC 2 Sánchezmarta Mckeon. [address] [place] [address], [facility], . tel:[phone] OFFICE/OUTPA TIENT VISIT, [facility] , [address] [place] [address], [address] [place] [address], tel:[phone] [facility] UTI (chief complaint)UR I (chief complaint) URIN TRACT INFECTION NOSACUTE URI NOS 2 No Information OFFICE/OUTPA TIENT VISIT, [facility] , [address] [place] [address], [id number], [place] tel:[phone] [facility] UTI (chief complaint) ABDMNAL PAIN GENERALIZEDOBE SITY NOSMALAISE AND FATIGUE NEC Aug- 2 Jared Mckeon. [address] [place] [address], [facility], . tel:[phone] OFFICE/OUTPA TIENT VISIT, [facility] , [address] [place] [address], [id number], [place] tel:[phone] [facility] flank pain (chief complaint)co ld symptoms (chief complaint) ABDMNAL PAIN GENERALIZEDSCR EEN-CARDIOVASC NECSCREEN-DIAB ETES MELLITUS 2 Jared Mckeon. [address] [place] [address], [facility], [place]. tel:[phone] Offic/outpt E&m [facility] , [address] [place] [address], [id number], [place] tel:[phone] [facility] anxiety (chief complaint) ALLERGIC RHINITIS NOSOTHER ATOPIC DERMATITISANXI ETY STATE NOSANXIETY STATE NOSOTHER ATOPIC DERMATITIS 2 Cy Gunderson. [address] [place] [address], [facility], . tel:[phone] Offic/outpt E&m [facility] , [address] [place] [address], [id number], [place] tel:[phone] [facility] sinusitis (chief complaint) ACUTE SINUSITIS NOS 2 Nathen Jemima. [address] [place] [address], [facility], . tel:[phone] OFFICE/OUTPA TIENT VISIT, [facility] , [address] [place] [address], [id number], [place] tel:[phone] [facility] anxiety (chief complaint) ANXIETY STATE NOS 1 Diane Hannah. [address], [place], [facility], [place]. tel:[phone] OFFICE/OUTPA TIENT VISIT, [facility] , [address] [place] [address], [address] [place] [address], tel:[phone] [facility] rash (chief complaint) DERMATITIS NEC 1 Jared Mckeon. [address] [place] [address], [facility], . tel:[phone] Offic/outpt E&m Estab Low-mod [facility] , [address] [place] [address], [id number], tel:[phone] [facility] sinus infection (chief complaint) ACUTE SINUSITIS NOS 1 No Information OFFICE/OUTPA TIENT VISIT, [facility] , [address] [place] [address], [address] [place] [address], tel:[phone] [facility] sinusitis (chief complaint) ACUTE SINUSITIS NOS 1 Jared Mckeon. [address] [place] [address], [facility], . tel:[phone] OFFICE/OUTPA TIENT VISIT, [facility] , [address] [place] [address], [address] [place] [address], tel:[phone] [facility] Rheumatoid Arthritis (chief complaint) LOC OSTEOAR NOS-SITE NEC 1 Jared Mckeon. [address] [place] [address], [facility], . tel:[phone] Preven Meds E&m Estab Pt; 18-[address], [address] [place] [address], tel:[phone] [facility] physical exam (chief complaint) ROUTINE MEDICAL EXAMROUTINE LOCK STITCH CHANNELER EXAMINATIONJOI NT PAIN-MULT JTS 1 Kyree Balbuena. [address], [place], [facility], . tel:[phone] OFFICE/OUTPA TIENT VISIT, [facility] , [address] [place] [address], [address] [place] [address], [place] tel:[phone] [facility] hand pain (chief complaint) LOC OSTEOAR NOS-SITE NEC 1 Jared Mckeon. [address] [place] [address], [facility], . 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 [address] [place] [address], [facility], . tel:[phone] OFFICE/OUTPA TIENT VISIT, [facility] , [address] [place] [address], [address] [place] [address], tel:[phone] [facility] back pain (chief complaint)si nus infection (chief complaint)Ra yneuds (chief complaint) ACUTE URI MULT SITES NECPAIN IN LIMB Sep- 1 Jared Mckeon. [address] [place] [address], [facility], . tel:[phone] OFFICE/OUTPA TIENT VISIT, [facility] , [address] [place] [address], [address] [place] [address], tel:[phone] [facility] Right Knee Pain (chief complaint)Ba ck pain (chief complaint) SPRAIN SHOULDER/ARM NECPAIN IN LIMBBACKACHE NOS Sep-0 1 Jared Mckeon. [address] [place] [address], [facility], . tel:[phone] Offic/outpt E&m [facility] , [address] [place] [address], [address] [place] [address], [place] tel:[phone] [facility] knee pain (chief complaint)sh oulder pain (chief complaint) SPRAIN SHOULDER/ARM NECPAIN IN LIMB 1 Nat De Dios. [address] [place] [address], [facility], [place]. tel:[phone] Offic/outpt E&m [facility] , [address] [place] [address], [address] [place] [address], [place] tel:[phone] [facility] upper respiratory infection (chief complaint) ACUTE URI MULT SITES NEC Aug- 1 Rosalva Hutchinson. [address] [address], [place], [place], [id number], [place]. tel:[phone] [facility] , [address] [place] [address], [id number], tel:[phone] [facility] No Information 0 1 Donnienomichael Va. [address] [place] [address], [facility], . tel:[phone] Offic/outpt E&m Estab Low-mod [facility] , [address] [place] [address], [id number], tel:[phone] [facility] establish care (chief complaint)ar thritis (chief complaint) PAIN IN LIMBCHONDROMAL ACIA PATELLAECHONDR OMALACIA PATELLAELOC OSTEOAR NOS-SITE NEC 8 1 Mary Kaysnomichael Va. [address] [place] [address], [facility], . tel:[phone] Family History Family Member Type Diagnosis Age At Onset Sister Problem (finding) UTI, endometriosis Mother Problem (finding) Rayneud Payers Payer name Insurance type Covered democrat ID Authoriza tion(s) No Information Social History Type Description Quantity Date Captured Comments Sex Female Smoking Status No Information Chief Complaint And Reason For Visit No Information Reason For Referral Reason For Referral No Information Plan Of Treatment Date Type Action Status Goal Breast exam. Due on 012 due Goal Diabetes Screening. Due on due Goal LOCK STITCH CHANNELER exam. Due on due Goal H&P. Due on due Goal PAP. Due on due Goal Td vaccine. Due on 13 due Goal Tdap. Due on due Future Order: Lab Order Influenz a A & B (MIS), Collected on: , Sent on: Sent Future Order: Lab Order Albumin (1000), S ent on: Sent Future Order: Lab Order ALT(SGPT) (1020), Sent on: Sent Future Order: Lab Order AST(SGOT) (1030), Sent on: Sent Future Order: Lab Order BUN (1170), Sent on: Sent Future Order: Lab Order Calcium (1070), S ent on: Sent Future Order: Lab Order CBC (7000), Sent on: Sent Future Order: Lab Order Creatinine (1110) , Sent on: Sent Future Order: Lab Order Electrolytes (140 ), Sent on: Sent Future Order: Lab Order Glucose, Venous (1120), Sent on: Sent Future Order: Lab Order HIV, Rapid (6000) , Sent on: Sent Future Order: Lab Order Lipid pa freddie, fasting (100), Sent on: Sent Future Order: Lab Order TSH (3760), Sent on: Sent Future Order: Lab Order Amylase (1200), S ent on: Sent Future Order: Lab Order ALT(SGPT) (1020), Sent on: Sent Future Order: Lab Order AST(SGOT) (1030), Sent on: Sent Future Order: Lab Order Glucose, Venous (1120), Sent on: Sent Future Order: Lab Order Lipid pa freddie, fasting (100), Sent on: Sent History Of Present Illness Encounter Date Complaint History Of Prese nt Illness No Information Functional Status Date Functional Assessmen t No Information Instructions Date Instruction Chuy raellano Prescribe medications Assessments Type Assessment Date No Information Patient Care Teams Name Effective Dates (start - stop) Status Members No Information
--- OUTSIDE RECORDS SUMMARY | 2024-08-09 11:17 | XMS_ITS | Encounter Summary ---
Author Organization [facility] Address [address] [place] [address] Care Team Providers Care Program And Research Coordinator Name Role Phone Wale Shaver Primary Care Provider [phone] Encounter Details Date Type Department Care Team (Latest Contact Info) Description 08/21/2017 [employer] Latin [employer] Message [facility] [address] [place] [address] Private Sector Executive: Lisa Chau MD [address] [place] [address] RE: Test Results Question Social History Tobacco Use Types Packs/Day [...] on filedocumented in this encounter Care Teams Program And Research Coordinator Relationship Specialty Start Date End Date Wale Shaver PCP - General Internal Medicine 09/24/20 documented as of this encounter
--- OUTSIDE RECORDS SUMMARY | 2024-08-09 11:17 | XMS_ITS | Encounter Summary ---
Author Organization [facility] Address [address] [place] [address] Care Team Providers Care Primary Counselor Name Role Phone Wale Shaver Primary Care Provider [phone] Encounter Details Date Type Department Care Team (Latest Contact Info) Description 07/19/2017 Playhouse[employer]quaret Message [facility] [address] [place] [address] Cyber Security: Lisa Chau MD [address] [place] [address] Prescription Question Social History Tobacco Use Types [...] on filedocumented in this encounter Care Teams Primary Counselor Relationship Specialty Start Date End Date Wale Shaver PCP - General Internal Medicine 09/24/20 documented as of this encounter
--- OUTSIDE RECORDS SUMMARY | 2024-08-09 11:17 | XMS_ITS | Encounter Summary ---
Author Organization [facility] Address [address] [place] [address] Care Team Providers Care Light Bulb Replacer Name Role Phone Wale Shaver Primary Care Provider [phone] Encounter Details Date Type Department Care Team (Latest Contact Info) Description 06/16/2017 Kare Partnerst Message [facility] [address] [place] [address] Aircraft Engine Technician: Lisa Chau MD [address] [place] [address] Prescription Question Social History Tobacco Use Types [...] on filedocumented in this encounter Care Teams Light Bulb Replacer Relationship Specialty Start Date End Date Wale Shaver PCP - General Internal Medicine 09/24/20 documented as of this encounter
--- OUTSIDE RECORDS SUMMARY | 2024-08-09 11:17 | XMS_ITS | Encounter Summary ---
Author Organization [facility] Address [address] [place] [address] Care Team Providers Care Vessel Manager Name Role Phone Wale Shaver Primary Care Provider [phone] Encounter Details Date Type Department Care Team (Latest Contact Info) Description 07/10/2017 Violet Message [facility] [address] [place] [address] Electric Spot Welder: Lisa Chau MD [address] [place] [address] RE: Visit Follow-Up Question Social History Tobacco Use Types Packs/Day [...] encounter Miscellaneous Notes * Telephone Encounter - Lisa Couch MD - 07/12/2017 8:18 AM ESTFrom: Iva Cervantes To: Lisa Couch MD Sent: 07/10/2017 9:40 PM EST Subject: Visit Follow-Up Question Good morning, Over the last couple of days I have given the whole enbrel injections a lot of thought.... First of all the stiff neck, jaw pain I am starting to think was not the enbrel but was the scentedcartridge that was in my humidifier( I am extremely sensitive to anything scented ) that triggered a very bad allergy/ asthma attack and that's why it didn't stop until I had the prednisone... As for all the swelling in my hands / legs it was caused from the high dose of prednisone which I have never been on that high of a dose so I stopped all prednisone and I'm happy to say all the swelling in my legs is gone.. My hands I think are just having a flare from everything being thrown in a whirl wind & cold weather I talked to the kind people at [facility] they are working on getting me new injections they think thatsomething could possibly have happened to the shots but there has never been a study done on the effects if they are no stored/ shipped improperly. The biggest reason I'd like to continue is blood work results in the last 6 weeks of taking enbrel my glucose has gone from 181 down to 98 .. my ast has gone down to 19 and my alt has gone down to 25all positive results... I did not do a shot this week because I wasn't sure if it was safe to use the ones I have.. I do not know when I will get the replacement shots and I don't know how to get a new set to tie me over till I get my new ones... Thank you Iva Cervantes 1975 documented in this encounter Plan of Treatment Not on file documented as of this encounter Visit Diagnoses Not on filedocumented in this encounter Care Teams Vessel Manager Relationship Specialty Start Date End Date Wale Shaver PCP - General Internal Medicine 09/24/20 documented as of this encounter
--- OUTSIDE RECORDS SUMMARY | 2024-08-09 11:17 | XMS_ITS | Clinical Summary ---
Author Organization [facility] Address [address] [place] [address] Care Team Providers Care Legal Billing Specialist Name Role Phone Wale Shaver PA-C Primary Care Provider Allergies Active Allergy Reactions Criticality Noted Date Comments Adhesive Tape 12/07/2020 Azithromycin 12/07/2020 Bee Sting 12/07/2020 Codeine 12/07/2020 Dairy 12/07/2020 Etodolac 12/07/2020 Gabapentin 12/07/2020 Adalimumab 12/07/2020 Lactulose 12/07/2020 Latex 12/07/2020 Levofloxacin 12/07/2020 Pregabalin 12/07/2020 Methylprednisolone 12/07/2020 Nortriptyline 12/07/2020 Nuts 12/07/2020 Shellfish 12/07/2020 Medications Medication Sig Dispensed Refills Start Date End Date Status albuterol 108 (90 Base) MCG/ACT inhaler INHALE 2 PUFFS BY MOUTH EVERY 6 HOURS 0 10/03/2020 Active Breo Ellipta 200-25 MCG/INH AEPB TAKE 1 PUFF BY MOUTH EVERY DAY 0 10/03/2020 Active rOPINIRole (REQUIP) 0.25 MG tablet TAKE 3 TABLETS BY MOUTH EVERY DAY AT BEDTIME 0 10/03/2020 Active certolizumab pegol (CIMZIA) 2 X 200 MG/ML prefilled syringe subcutaneous kit Inject under the skin once. 400mg at once, every 28 days 0 Active Empagliflozin (Jardiance) 25 MG TABS Take by mouth. 0 Active dulaglutide (Trulicity) 0.75 MG/0.5ML subcutaneous pen-injector Inject under the skin. 0 Active amLODIPine (NORVASC) tablet 5 mg Take 1 tablet (5 mg total) by mouth daily. 0 Active amLODIPine (NORVASC) tablet 2.5 mg Take 1 tablet (2.5 mg total) by mouth daily. 0 Active montelukast (SINGULAIR) 10 MG tablet Take 1 tablet (10 mg total) by mouth every night at bedtime. 0 Active levocetirizine (XYZAL) 5 MG tablet Take 1 tablet (5 mg total) by mouth every evening. 0 Active Cyanocobalamin (VITAMIN B-12 PO) Take by mouth. 0 Act tariq Magnesium 250 MG TABS Take by mouth. 0 Active Cholecalciferol (Vitamin D) 25 MCG (1000 UT) TABS Take by mouth. 0 Active metFORMIN (GLUCOPHAGE) tablet 1000 mg Take 1 tablet (1,000 mg total) by mouth 2 (two) times a day with meals. 0 Active cyclobenzaprine (FLEXERIL) 10 MG tablet Take 1 tablet (10 mg total) by mouth 3 (three) times a day as needed for muscle spasms. 0 Active leucovorin 100 MG injection Inject into the vein daily. 0 Active Loteprednol Etabonate (Lotemax) 0.5 % OINT Apply to eye. 0 A ctive NIFEdipine (PROCARDIA XL) 30 MG 24 hr tablet Take 1 tablet (30 mg total) by mouth daily. 0 Active pentoxifylline (TRENtal) 400 MG CR tablet Take 1 tablet (400 mg total) by mouth 3 (three) times a day with meals. 0 Active glipiZIDE (GLUCOTROL) tablet 5 mg Take 1 tablet (5 mg total) by mouth 2 (two) times a day before breakfast and dinner. 0 Active Active Problems Problem Noted Date Diagnosed Date Leucopenia 12/07/2020 Rheumatoid arthritis involving multiple sites Bruising 12/07/2020 Family History Medical History Relation Name Comments Diabetes Father Heart failure Father Hypertension Father Diabetes Mother Heart disease Mother Hypertension Mother Thyroid disease Mother Cancer Sister Thyroid disease Sister Relation Name Status Comments Father Mother Sister Social History Tobacco Use Types Packs/Day Years Used Date Smoking Tobacco: Never Smokeless Tobacco: Never Alcohol Use Standard Drinks/Week Comments Never 0 (1 standard drink = 0.6 oz pur e alcohol) Sex and Gender Information Value Date Recorded Sex Assigned at Not on file Gender Identity Not on file Sexual Orientation Not on file Job Start Date Occupation Industry Not on file Not on file Not on file Last Filed Vital Signs Vital Sign Reading Time Taken Comments Blood Pressure 126/78 05/02/2022 9:37 AM EDT Pulse 117 05/02/2022 9:37 AM EDT Temperature 36.3 ??C (97.4 ??F) 05/02/2022 9:37 AM ED T Respiratory Rate - - Oxygen Saturation 97% 05/02/2022 9:37 AM EDT Inhaled Oxygen Concentration - - Weight 115.2 kg (254 lb) 02/22/2024 10:20 AM EDT Height 163.8 cm (5' 4.5 ) 05/02/2021 10:53 AM ED T Body Mass Index 42.93 05/02/2021 10:53 AM EDT Plan of Treatment Health Maintenance Due Date Last Done Comments Hepatitis B Vaccines (1 of 3 - 3-dose series) 1973 Hepatitis C Screening 1973 Depression Screening 1985 Preventative Health Evaluation 1991 Cervical Cancer Screening (Pap Smear) 1994 Colon Cancer Screening (Colonoscopy) 2018 Breast Cancer Screening (Mammogram) 2023 Shingrix-Zoster Vaccine (1 of 2) 2023 COVID-19 Vaccine ( season) 2024 04/15/2021, 02/03/2021, 01/12/2021 Influenza Vaccine (#1) 2024 2, 04/19/2022, 04/11/2021, Additional history exists DTap / Tdap / Td (3 - Td or Tdap) 04/02/2025 04/02/2015, 04/30/2013 Pneumococcal Vaccine Aged Out 2016, 03/21/20 16 No longer eligible based on patient's age to complete this topic RSV Ped < 20 months Aged Out No longe r eligible based on patient's age to complete this topic Care Teams Legal Billing Specialist Relationship Specialty Start Date End Date Wale Shaver, DAQUANC PCP - General Medical Services 11/15/20
--- OUTSIDE RECORDS SUMMARY | 2024-08-09 11:17 | XMS_ITS | Encounter Summary ---
Author Organization [facility] Address [address] [place] [address] Care Team Providers Care Wash Oil Cooler Operator Name Role Phone Wale Shaver Primary Care Provider [phone] Reason for Visit * Reason Onset Date Comments Appointment 07/18/2024 Encounter Details Date Type Department Care Team (Late st Contact Info) Description 07/18/2024 Telephone Adult Medicine [facility] [address] [place] [address] Wale Shaver PA [address], [place] [phone] Appointment Social History Tobacco Use Types Packs/Day Years Used Date Smoking Tobacco: Never Smokeless Tobacco: Never Alcohol Use Standard Drinks/Week Comments No 0 (1 standard drink = 0.6 oz pur e alcohol) Sex and Gender Information Value Date Recorded Sex Assigned at Not on file Gender Identity Not on file Sexual Orientation Not on file Job Start Date Occupation Industry Not on file Not on file Not on file documented as of this encounter Progress Notes * Carolyn Cole RN - 07/18/2024 1:26 PM EST Called and spoke with bassam moss not to get he opinion is so every one is on the same plan of care for pt and foot infection and hasn't seen pcp since appt for 0800 with pcp on 07/23/24 * Kaitlin Bonilla - 07/18/2024 11:54 AM EST Pt has a bone infection in her left foot middle toe and her infectious disease wants pt to see her primary to get his opinion on what they should do - stay on antiobioctics or amputation - pt needs to see him within the next week documented in this encounter Plan of Treatment Upcoming Encounters Date Type Department Care Team (Late st Contact Info) Description 08/19/2024 11:00 AM EST Consult Adult Medicine [address] [phone] Zara Estrella PharmD [address] [place] [address] 08/20/2024 8:30 AM EST Office Visit Orthopedic Surgery [place] [id number] [address] Julien Tracey, DPM [address] [address] 10/03/2024 8:45 AM EDT Office Visit Adult Medicine [address] [phone] Wale Shaver PA [address] [place] [address] documented as of this encounter Visit Diagnoses Not on filedocumented in this encounter Additional Health Concerns Assessment Noted Time PHQ-9 Depression Total Score: 0 06/03/20 24 5:42 PM EST documented as of this encounter Care Teams Wash Oil Cooler Operator Relationship Specialty Start Date End Date Wale Shaver PA [address] [place] [address] PCP - General Internal Medicine 07/05/20 documented as of this encounter
--- OUTSIDE RECORDS SUMMARY | 2024-08-09 11:17 | XMS_ITS | Patient Health Record ---
Author Organization [facility] Address [address] [place] [address] Care Team Providers Care Buyer Name Role Phone ELOISA SANCHEZ PA-C Primary Care Provider Un available Jaxson Dias Jr Unavailable [phone] ALLERGIES Allergen (clinical drug ingredient) Drug/Non Drug Allergy documented on EMR Reaction Allergy Type Onset Date Status providone-iodine swabstick (uncoded) hives,rash Allergy Active balsam of radha (uncoded) Unknown Allergy Active shellfish(lobster,sh rim p,clams,scallops (uncoded) Unknown Allergy Active cant take anything w ith advil or aspirin (uncoded) due to the relafen diabetes Allergy Active latex, adhesive, lactose and tree nuts (uncoded) Unknown Allergy Active nortriptyline Nortriptyline HCl fever stomach cramps severe dry mouth and throat Drug Allergy Active methylprednisolone MethylPREDNISolone extreme muscle spasms, cramps and swelling Drug Allergy Active pregabalin Lyrica throat closing and swelling Drug Allergy Active levofloxacin Levofloxacin extreme joint and tendon pain Drug Allergy Active Humira rash Drug Allergy Active gabapentin Gabapentin swelling in legs and feet Drug Allergy Active etodolac Etodolac swelling in legs and feet Drug Allergy Active Azithromycin hives Drug Allergy Active all TNF Inhibitors (humira(adalimumab)sophia annette(infl (uncoded) Unknown Allergy Active propylene glycol (uncoded) Unknown Allergy Active disperse blue 106 disperse blue 106 (uncoded) Unknown Allergy Active REASON FOR REFERRAL No Information MEDICATIONS Medication SIG (Take, Route, Frequency, Duration) Notes Start Date End Date Status oxyCODONE-Acetaminophen 5-325 MG 1 tablet as needed Orally as needed Active Rasuvo 20 MG/0.4ML as directed Subcutaneous every sunday night Active Deanna Allergy 180 MG 1 tablet as neede d Orally Once a day Active amLODIPine Besylate 5 MG 1 tablet Orally Once a day for raynauds ds Active Ventolin HFA Active Humira Pen 40 MG/0.8ML as directed Subcutaneous once a week Not-Taking Magnesium Oxide 250 MG 1 tablet Orally O nce a day Active metFORMIN HCl 1000 MG 1 tablet with a me al Orally twice a day Active Vitamin B12 500 MCG 1 tablet Orally Once a day for 30 day(s) Active rOPINIRole HCl 0.25 MG 3 tablet at night Active EpiPen 2-Ramakrishna 0.3 MG/0.3ML 1 injection In jection as needed for bee sting Active Vitamin D3 25 MCG (1000 UT) 1 capsule Orally Once a day for 30 day(s) Active Xeljanz 10 MG 1 tablet Orally in am Active ZyrTEC Allergy 10 MG 1 tablet Orally Onc e a day for 30 day(s) Active hydrOXYzine HCl 25 MG 1 tablet as needed Orally every 8 hrs for 30 day(s) Active Montelukast Sodium 10 MG 1 tablet Orally Once a day for 30 day(s) Active Albuterol Sulfate HFA 108 (90 Base) MCG/ACT INHALE 2 PUFFS BY MOUTH EVERY 6 HOURS Inhalation for 25 Active Trulicity 0.75 MG/0.5ML as directed Subcutaneous Active Potassium Chloride ER 10 MEQ TAKE 1 TABLET BY MOUTH TWICE A DAY Oral for 90 Active Breo Ellipta 200-25 MCG/INH TAKE 1 PUFF BY MOUTH EVERY DAY Inhalation for 60 Active Clotrimazole-Betamethasone 1-0.05 % APPLY TO AFFECTED AND SURROUNDING AREA TWICE A DAY FOR 2 WEEKS( IN MORNING AND EVENING) External for 14 Active Folic Acid 1 MG 1 tablet Orally twic e a day Active Ammonium Lactate 12 % APPLY AFTER BATH DAILY. External for 15 Active Jardiance 10 MG 1 tablet Orally Once a day Active EPINEPHrine 0.3 MG/0.3ML as directed Injection Active Cimzia 2 X 200 MG as directed Subcutaneous Active Nystatin 481110 UNIT/GM APPLY TO AFFECTE D AREA TWICE A DAY External for 20 Active Cyclobenzaprine HCl Active Tacrolimus 0.1 % APPLY TO AFFECTED AR EA TWICE A DAY External for 30 Active Pioglitazone HCl 30 MG 1 tablet Orally O ne at night Active SUMAtriptan Succinate 50 MG as directed Orally 1-2 tablets for migraines Active IMMUNIZATIONS Vaccine Route Administration Date Status Comme nts Influenza Unknown 04/03/2019 Administered Influenza Unknown 04/25/2019 Administered Influenza Unknown 04/15/2020 Administered Influenza Unknown 04/11/2021 Administered Influenza Unknown 06/15/2022 Administered SOCIAL HISTORY Sex Assigned At : Social History Observation Description Sex Assigned At Unknown PROBLEMS Problem Type ICD Code Onset Dates Problem Status W/U Status Risk SNOMED Code Notes Problem Rectal bleeding (K62.5) Active confirmed 70683183 Problem Gastro-esophageal reflux disease without esophagitis (K21.9) Active confirmed 705635531 Problem Elevated LFTs (R79.89) Active confirmed 168982805 Problem Gastroesophageal reflux disease without esophagitis (K21.9) Active confirmed 883915773 Problem Abnormal liver function tests (R79.89) Active confirmed 286505746 Problem Abnormal LFTs (R94.5) Active confirmed 637863213 PLAN OF TREATMENT Pending Test Test Name Order Date LIVER PROFILE 02/19/2020 LIVER PROFILE 06/28/2022 GGT 02/19/2020 CBC w DIFF 06/28/2022 CBC w/o DIFF 11/05/2020 PROTHROMBIN TIME (PT, INR) 11/05/2020 PROTHROMBIN TIME (PT, INR) 06/28/2022 PARTIAL THROMBOPLASTIN TIME (PTT) 2020 US ABD 06/28/2022 Liver Fibrosis Pnl 06/28/2022 US biopsy liver 11/05/2020 Future Test Test Name Order Date UPPER GI ENDOSCOPY 02/19/2020 COLONOSCOPY 02/19/2020 Insurance Providers Payer Name Payer Address Payer Phone Subscriber Number Group Number Insured Name Patient Relationship to Insured Coverage Start Date Coverage End Date MEDICARE OF [place] [address] [place] [address] [id number] DOC RICHARDS Self - patient is the insured [facility] [address] [place] [phone] [id number] DOC RICHARDS Self - patient is the insured MEDICAL (GENERAL) HISTORY Medical History History ICD Code Diabetes mellitus type 2 raynauds disease degenarative arthritis Fibromyalgia/migraines Spinal curvature with this disease rheumatoid arthritis osteoarthritis lupus diabetes mellitus asthma/chronic bronchitis osteopenia Thyroid nodules Gastroesophageal reflux dise ase, EGD 05/04/20, mild gastritis, no H. pylori, reflux on EG junction biopsy but no BE Elevated liver enzymes Colonoscopy, hyperplastic polyp, t en-year followup Surgical History Surgery Date(Month/Year) tonsillectomy cholecystectomy orthoscopic right knee/screw removal rt knee petalla realignment x2 ulner nerve relocation right elbow partial hysterectomy hardware removal right knee Right elbow trauma cyst removal patella re-alignment right knee
--- OUTSIDE RECORDS SUMMARY | 2024-08-09 11:17 | XMS_ITS | Encounter Summary ---
Author Organization [facility] Address [address] [place] [address] Care Team Providers Care Mechanical Test Technician Name Role Phone Wale Shaver Primary Care Provider [phone] Encounter Details Date Type Department Care Team (Late st Contact Info) Description 05/26/2016 Orders Only [facility] [address] [address] Lyric Lafleur MD [address] [place] [id number] Social History Tobacco Use Types Packs/Day Years Used Date Smoking Tobacco: Never Assessed Comments Unknown Sex and Gender Information Value [...] on filedocumented in this encounter Care Teams Mechanical Test Technician Relationship Specialty Start Date End Date Wale Shaver PCP - General Internal Medicine 09/24/20 documented as of this encounter
--- OUTSIDE RECORDS SUMMARY | 2024-08-09 11:17 | XMS_ITS | Encounter Summary ---
Author Organization [facility] Address [address] [place] [address] Care Team Providers Care Floor Covering Printer Name Role Phone Wale Shaver Primary Care Provider [phone] Reason for Visit * Reason Onset Date Comments Fitting for DME 07/18/2024 Dswo form for la ncets Encounter Details Date Type Department Care Team (Late st Contact Info) Description 07/18/2024 Telephone Adult Medicine [address] [phone] Aliya Emerson LPN Fitting for DME (Dswo form for lancets) Social History Tobacco Use Types Packs/Day Years [...] as of this encounter Progress Notes * Aliya Emerson LPN - 07/18/2024 1:01 PM EST Form signed and faxed to [email or web address] @ [phone] * Aliya Emerson LPN - 07/18/2024 10:51 AM EST Received faxed for for lancets form to Dr Galvin to sign documented in this encounter Plan of Treatment Upcoming Encounters Date Type Department Care Team (Late st Contact Info) Description 08/19/2024 11:00 AM EST Consult Adult Medicine [address] [phone] Zara Estrella PharmD [address] [place] [address] 08/20/2024 8:30 AM EST Office Visit Orthopedic Surgery - [place] [address] [phone] Julien Tracey, DPVashti [address] [address] 10/03/2024 8:45 AM EDT Office Visit Adult Medicine [address] [phone] Wale Shaver PA [address] [place] [address] documented as of this encounter Visit Diagnoses Not on filedocumented in this encounter Additional Health Concerns Assessment Noted Time PHQ-9 Depression Total Score: 0 06/03/20 24 5:42 PM EST documented as of this encounter Care Teams Floor Covering Printer Relationship Specialty Start Date End Date Wale Shaver PA [address] [place] [address] PCP - General Internal Medicine 07/05/20 documented as of this encounter
--- OUTSIDE RECORDS SUMMARY | 2024-08-09 11:18 | XMS_ITS | Encounter Summary ---
Author Organization [facility] Address [address] [place] [address] Care Team Providers Care Meeting Specialist Name Role Phone Wale Shaver Primary Care Provider [phone] Reason for Visit * Reason Onset Date Comments Fitting for DME 07/08/2024 Encounter Details Date Type Department Care Team (Late st Contact Info) Description 07/08/2024 Telephone Adult Medicine [facility] [address] [place] [address] Wale Shaver PA [address] [place], [place] [phone] Fitting for DME Social History Tobacco Use Types Packs/Day Years [...] Progress Notes * Aliya Emerson LPN - 07/29/2024 10:28 AM EST Pt has not called back yet Called her again Spoke to pt she states that Wale wants her to see Zara Perez for her diabetes She does have appt on 08/19/24 with her This message closed * Aliya Emerson LPN - 07/14/2024 2:07 PM EST Left another message for call back on voice mail Form signed and faxed to hannah @ [phone] * Aliya Emerson LPN - 07/14/2024 11:25 AM EST Left message for pt to call me back Sh e needs to schedule follow up with Casie Davis PA-C in endocrine * Aliya Emerson LPN - 07/14/2024 9:57 AM EST Received the faxed CNM form and it is for Casie Davis in endocrinology Form brought to endocrinology for her to sign * lAiya Emerson LPN - 07/14/2024 9:35 AM EST Called hannah to have them faxed CNM directly to me Have not received the faxed form Spoke to Ammy She will fax directly to me * Evert Aguilera - 07/08/2024 11:22 AM EST Ammy Mcbride Pharmacist needs the CMN form to be filled out and faxed over, fax #: [phone]. documented in this encounter Plan of Treatment Upcoming Encounters Date Type Department Care Team (Late st Contact Info) Description 08/19/2024 11:00 AM EST Consult Adult Medicine [facility] [address] [place] [phone] Zara Estrella, PharmD [address] [place] [phone] 08/20/2024 8:30 AM EST Office Visit Orthopedic Surgery - [place] [address] [phone] Julien Tracey, DPM [address] [address] 10/03/2024 8:45 AM EDT Office Visit Adult Medicine [facility] [address] [place] [address] Wale Shaver PA [address] [place] [address] documented as of this encounter Visit Diagnoses Not on filedocumented in this encounter Additional Health Concerns Assessment Noted Time PHQ-9 Depression Total Score: 0 06/03/20 24 5:42 PM EST documented as of this encounter Care Teams Meeting Specialist Relationship Specialty Start Date End Date Wale Shaver PA [address] [place] [address] PCP - General Internal Medicine 07/05/20 documented as of this encounter
--- OUTSIDE RECORDS SUMMARY | 2024-08-09 11:18 | XMS_ITS | Referral Summary ---
Author Organization [facility] Address [address] [place] [address] Care Team Providers Care Cast Iron Drain Pipe Layer Name Role Phone SharshaunnaWale dubose Primary Care Provider [phone] Allergies Active Allergy Reactions Criticality Noted Date Comments Adalimumab Rash Low 12/17/2019 Adhesive Unknown Adhesive Tape-Silicones Unknown 04/02/2015 Remus Migraine Azithromycin Hives,Dermatitis 06/27/2018 Rash/Dermatitis Balsam [place]-Zinc Oxide Unknown 08/22/2019 Bee Venom Protein (Honey Bee) Anaphylaxis High 04/16/2017 Codeine Rash 06/27/2018 Other reaction(s): Rash/Dermatitis Etodolac Edema,Swelling High 08/20/2017 Gabapentin Edema,Rash,Swelling High 04/02/2015 Infliximab Anaphylaxis,Rash High 08/09/2020 Iodine Rash Low 06/07/2020 Skin Allergy Lactose Unknown 04/02/2015 Latex Rash,Other (see comments) 11/12/2008 Tape or bandaids Levofloxacin Joint pain,Muscle Pain 04/16/2017 Methylprednisolone Muscle cramps,Other (see comments) 04/16/2017 Muscle spasm Muscle spasm Milk Containing Products (Dairy) Unknown Nortriptyline Fatigue,Other (see comments) 04/02/2015 Fever, stomach cramps, dry mouth & throat Fever, stomach cramps, dry mouth & throat Nut - Unspecified Unknown 07/27/2009 Pregabalin Angioedema,Rash High 04/02/2015 Throat closing/swelling Propylene Glycol Unknown 08/22/2019 Shellfish Derived Rash 03/05/2018 Tramadol Headache 12/25/2019 Tramadol triggeed miograine Tree Nuts Anaphylaxis High 04/16/2017 Medications ranitidine (ZANTAC) 300 mg tablet Take 300 mg by mouth 2 times a day. 09/20/19 15 Active montelukast (SINGULAIR) 10 mg tablet Active glyBURIDE (DIABETA) 2.5 mg tablet Take 2.5 mg by mouth daily with breakfast. OR THE FIRST MAIN JACOB Active INHALER, ASSIST DEVICES (AEROCHAMBER PLUS FLOW-VU [facility]) Use as directed. Active amLODIPine (NORVASC) 5 mg tablet Take 5 mg by mouth daily. Active fexofenadine (ZORAN) 60 mg tablet Take 180 mg by mouth nightly. Active cholecalciferol, vitamin D3, 5,000 unit tablet Take 1 tablet by mouth. Active EPINEPHrine (EPIPEN) 0.3 mg/0.3 mL injection syringe Inject as directed. Active blood glucose diagnostoc (freestyle) [facility] FreeStyle Lancets Miscellaneous TEST twice a day Quantity: 200; Refills: 0 Started 22-Sep-2015 Active 09/22/19 16 Active rOPINIRole (REQUIP) 0.25 mg tablet Take 0.75 mg by mouth daily. 09/06/19 16 Active metFORMIN (GLUCOPHAGE) 1,000 mg tablet Take 1 tablet by mouth 2 times a day. 0 05/15/20 17 Active ondansetron ODT (ZOFRAN ODT) 8 mg disintegrating tablet Dissolve 8 mg in the mouth as needed. 0 04/16/20 17 Active magnesium 250 mg tablet Take 1 tablet by mouth daily. Active folic acid (FOLVITE) 1 mg tablet Take 1 tablet (1 mg total) by mouth daily. 360 tablet 11/09/19 18 Active predniSONE (DELTASONE) 5 mg tablet Take 3 pills for 4 days then decrease by 1 pill every 4 days until off 24 tablet 11/23/19 18 Active glyBURIDE (DIABETA) 5 mg tablet Take 5 mg by mouth 2 times a day with meals. 1 01/31/20 18 Active LORazepam (ATIVAN) 0.5 mg tablet take 1 tablet by mouth every 12 hours if needed for FIBROMYALGIA SYMPTOMS 0 12/21/19 18 Active methotrexate, PF, 20 mg/0.4 mL auto-injector Inject 0.4 mL (20 mg total) under the skin every 7 days. 4 pen 3 9 9:11 AM EST 07/12/20 18 Active CALCIUM CITRATE ORAL Take 600 mg by mouth daily. Active potassium chloride ER (MICRO-K) 10 mEq capsule Take 10 mEq by mouth 2 times a day. Active VENTOLIN HFA 90 mcg/actuation inhaler inhale 1 to 2 puffs by mouth every 4 to 6 hours if needed 0 05/20/20 19 Active pioglitazone (ACTOS) 30 mg tablet 07/29/19 20 Active adalimumab (HUMIRA CF) 40 mg/0.4 mL pen injector kit Inject 40 mg under the skin. 06/09/20 19 Active aspirin 81 mg EC tablet Take 81 mg by mouth daily. Active cyanocobalamin (vitamin B-12) 1,000 mcg tablet Take 1,000 mcg by mouth daily. Active triamcinolone acetonide (KENALOG-40) 40 mg/mL injection Inject 40 mg into the joint. 04/19/20 20 Active SUMAtriptan (Imitrex) 50 mg tablet Take 1 tab by mouth at the first sign of migraine, May repeat dose once after 2 hours, if needed. 02/13/20 20 Active tacrolimus (Protopic) 0.1 % ointment Apply to affected are BID 09/08/19 21 Active terconazole (TERAZOL 3) 0.8 % vaginal cream INSERT 1 APPLICATORFUL EVERY DAY BY VAGINALLY FOR 3 DAYS 12/10/19 20 Active Ozempic 0.25 mg or 0.5 mg(2 mg/1.5 mL) injection 09/26/19 21 Active Breo Ellipta 200-25 mcg/dose blister with device 10/04/19 21 Active Singulair 10 mg tablet TAKE 1 TABLET BY MOUTH EVERYDAY AT BEDTIME 02/24/20 20 Active hydrOXYzine HCL (ATARAX) 25 mg tablet Take 50 mg by mouth. 03/24/20 20 Active Active Problems Problem Noted Date Diagnosed Date Right wrist pain 04/07/2021 Overview (04/07/2021): Added automatically from request for surgery [id number] Tinea cruris 02/13/2017 Intertrigo 02/13/2017 Tinea corporis 02/13/2017 Right knee pain 02/08/2017 Seasonal allergies 12/19/2016 Psoriasis 08/02/2016 Psoriatic arthritis 08/02/2016 Assessment & Plan (05/06/2019 1:35 PM EDT): Ms. Cervantes carries the diagnosis of psoriatic arthritis, but has indicated that she has not had psoriasis. The lesions that reportedly were diagnosed as psoriasis are faint roughness of the skin over the extensor surfaces of her elbows without erythema or scale. She has been treated with many different disease modifying antirheumatic drugs with variable improvement in her symptoms. Recently, she was treated with Remicade 5 mg/kg intravenously every 6 weeks and apremilast 30 mg by mouth twice daily, with reasonable control of her joint pain. Because her mother is anticipating cardiac surgery, Ms. Cervantes wished to take a TNF inhibitor that could be self- administered and has taken a single dose of Humira 40 mg subcutaneously. She does not wish to have a flare of disease activity while awaiting her mother's cardiac surgery and when caring for her mother after surgery, so she prefers to continue taking her current medications at their present doses. I suggested that, to make a more accurate diagnosis and to determine whether she needs to be taking a TNF inhibitor in addition to apremilast, she might withhold Humira and try continuing to take apremilast 30 mg mouth twice daily alone. Ms. Cervantes may try withholding Humira, if she feels comfortable that her home situation is such that she might be able to chance a change in her symptoms. Laboratory studies will be performed today to assess her complete blood count, WBC differential count, serum electrolytes, random blood glucose, BUN, serum creatinine, serum calcium, liver function studies, ESR, CRP, circulating rheumatoid factor, circulating IgG anti-CCP antibodies, hepatitis B surface antigen, anti-hepatitis B surface antibodies, anti-hepatitis B core antibodies, antibodies to hepatitis C virus, and QuantiFERON TB Gold test. I told her that a circulating antinuclear antibody titer 1:40 typically is considered to be clinically insignificant. However, I I am repeating her testing for circulating antinuclear antibodies by nuclear immunofluorescence today. Ms. Cervantes will have plain radiographs of both hands, wrist, ankles, and feet performed to look for evidence of bony erosion, periarticular osteopenia, or other stigmata that might indicate chronicity of inflammatory polyarthritis. She did not exhibit evidence of synovitis on examination today. I asked her to telephone my office to return so that I can examine her, if she develops synovitis. Otherwise, she will return to see me in about 6 weeks, so that I may reassess her condition and make any necessary changes in therapy. 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 Enchondroma 02/08/2015 Restless legs syndrome 12/28/2014 Generalized pain 12/28/2014 Morbid obesity 12/28/2014 Generalized osteoarthrosis, involving multiple s ites 12/28/2014 Wound of skin 10/30/2014 Headache, migraine 09/01/2014 Neoplasm of uncertain behavior 08/04/2014 Chronic stasis dermatitis 08/04/2014 Benign pigmented nevus 08/04/2014 Acrochordon 08/04/2014 Right elbow pain 06/02/2014 Lower back pain 04/15/2014 Pain, joint, shoulder 03/17/2014 Joint pain, knee Right 10/08/2012 Immunizations Name Administration Dates Next Due INFLUENZA, SPLIT VIRUS, TRIVALENT, PF 04/18/2016 Pneumococcal Conjugate Vaccine, 13 Valent 2015 Pneumococcal Polysaccharide Vaccine, 23 Valent 0 2016 Social History Tobacco Use Types Packs/Day Years [...] Orientation Straight 10/25/2020 7: 56 PM EDT Last Filed Vital Signs Vital Sign Reading Time Taken Comments Blood Pressure 135/83 08/05/2019 1:49 PM EST Pulse 116 08/05/2019 1:49 PM EST Temperature 36.3 ??C (97.4 ??F) 05/06/2019 1 1:11 AM EDT Respiratory Rate - - Oxygen Saturation 98% 04/12/2017 2:38 PM EDT Inhaled Oxygen Concentration - - Weight 174.8 kg (385 lb 6.4 oz) 021 10:42 AM EST Height 162.6 cm (5' 4 ) 08/05/2019 1:49 PM EST Body Mass Index 66.15 08/05/2019 1:49 PM EST Plan of Treatment Not on file Insurance [facility] MEDICARE Care Teams Cast Iron Drain Pipe Layer Relationship Specialty Start Date End Date Wale Shaver PCP - General Internal Medicine 09/24/20
--- OUTSIDE RECORDS SUMMARY | 2024-08-09 11:18 | XMS_ITS | Clinical Summary ---
Author Organization [facility] Address [address] [place] [address] Care Team Providers Care Soa Architect Name Role Phone SharshaunnaWale dubose Primary Care Provider [phone] Allergies Active Allergy Reactions Criticality Noted Date Comments Adalimumab Rash Low 12/17/2019 Adhesive Unknown Adhesive Tape-Silicones Unknown 04/02/2015 [place] Migraine Azithromycin Hives,Dermatitis 06/27/2018 Rash/Dermatitis Balsam [place]-Zinc Oxide Unknown 08/22/2019 Bee Venom Protein (Honey [...] Active INHALER, ASSIST DEVICES (AEROCHAMBER PLUS FLOW-VU [facility]) Use as directed. Active amLODIPine (NORVASC) 5 mg tablet Take 5 mg by mouth daily. Active fexofenadine (ZORAN) 60 mg tablet Take 180 mg by mouth nightly. Active cholecalciferol, vitamin D3, 5,000 unit tablet Take 1 tablet by mouth. Active EPINEPHrine (EPIPEN) 0.3 mg/0.3 mL injection syringe Inject as directed. Active blood glucose diagnostoc (freestyle) [facility] FreeStyle Lancets Miscellaneous TEST twice a day [...] (04/07/2021): Added automatically from request for surgery [id number] Tinea cruris 02/13/2017 Intertrigo 02/13/2017 Tinea corporis [...] Pneumococcal Polysaccharide Vaccine, 23 Valent 0 2016 Family History Medical History Relation Name Comments Other Father Family History of hypertension /Family History of cardiac disorder /Family History of diabetes mellitus Other Maternal Grandmother Family History of migraine headaches Other Mother Family History of hypertension /Family History of cardiac disorder /Family History of diabetes mellitus /Family History of thyroid disease Other Paternal Grandmother Family History of migraine headaches Other Sister Family History of basal cell carcinoma Relation Name Status Comments Father Alive Maternal Grandmother Mother Alive Paternal Grandmother Sister Social History Tobacco Use Types Packs/Day [...] 08/05/2019 1:49 PM EST Plan of Treatment Health Maintenance Due Date Last Done Comments Cervical Cancer Screening 1973 Cologuard 1973 Colon Cancer Screening 1973 Colonoscopy 1973 FOBT / Fit Test 1973 HIV Screening 1973 HPV and Pap Smear 1973 Pap Smear 1973 Sigmoidoscopy 1973 Hepatitis B Vaccines (1 of 3 - 19+ 3-dose series) 1992 Zoster Vaccines (1 of 2) 2023 COVID-19 Vaccine (1 - 2023- season) 2024 Influenza Vaccine (#1) 2024 9, 04/25/2019, 04/12/2019, Additional history exists Alcohol/Substance Use Screening 07/16/2024 DTaP,Tdap,and Td Vaccines (2 - Td or Tdap) 04/02/2025 04/02/2015 RSV Vaccine (60+ years old and patients) (1 - 1-dose 75+ series) 2048 Mammogram Discontinued 09/22/2015 Pneumococcal Vaccine: Pediatric (0-5 Years) and At-Risk Patients (6-64 Years) Aged Out 2016, 03/21/2016 No longer eligibl e based on patient's age to complete this topic Insurance [employer] MEDICARE Care Teams Soa Architect Relationship Specialty Start Date End Date Wale Shaver PCP - General Internal Medicine 09/24/20
[2024-08-09 13:47] LABS: HBc Num1 0.11 S/CO (0.00-0.79); HBsAGNum1 0.41 S/CO (0.00-0.99); Hepatitis B Core Antibody Nonreactive (Nonreactive); Hepatitis B Surface Antigen Negative (Negative); ~HepC Num1 0.08 S/CO (0.00-0.79); ~Hepatitis B Surface Antibody NONREACTIVE (Nonreactive); ~Hepatitis C Antibody Nonreactive (Nonreactive)
== END 2024-08-09 11:14 | disposition home or self-care (01) ==
LOC: HO.HMGCLDS 11:13
PROVIDERS: PCP Physician Assistant Medical; Visit Provider Internal Medicine Rheumatology
DX: Z79.899 Other long term (current) drug therapy (principal); Z11.59 Encounter for screening for other viral diseases; Z72.89 Other problems related to lifestyle
CPT/HCPCS: 36415; 86481; 86704; 86706; 86803; 87340

== ENCOUNTER 2024-08-26 09:18 | Outpatient (REF) | payer MEDICARE, MEDICAID, SELFPAY ==
--- OUTSIDE RECORDS SUMMARY | 2024-08-26 10:26 | XMS_ITS | Encounter Summary ---
Author Organization [facility] Address [address] [place] [address] Care Team Providers Care Electromechanical Assembly Technician Name Role Phone Wale Shaver Primary Care Provider [phone] Reason for Visit * Reason Onset Date Comments Fitting for DME 07/08/2024 Encounter Details Date Type Department Care Team (Late st Contact Info) Description 07/08/2024 Telephone Adult Medicine [facility] [address] [place] [address] Wale Shaver PA [address] [place] [address] Fitting for DME Social History Tobacco Use Types Packs/Day Years Used Date Smoking Tobacco: Never Smokeless Tobacco: Never Alcohol Use Standard Drinks/Week Comments No 0 (1 standard drink = 0.6 oz pur e alcohol) Comments Unknown Sex and Gender Information Value Date Recorded Sex Assigned at Not on file Legal Sex Female 10:31 PM EDT Gender Identity Not on file Sexual Orientation Not on file documented as of this [...] Form signed and faxed to hannah @ [phone] * Aliya Emerson LPN - 07/14/2024 11:25 AM EST Left message for pt to call me back Sh e needs to schedule follow up with Casie Davis PA-C in endocrine * Aliya Emerson LPN - 07/14/2024 9:57 AM EST Received the faxed CNM form and it is for Casie Davis in endocrinology Form brought to endocrinology for her to sign * Aliya Emerson LPN - 07/14/2024 9:35 AM EST Called hannah to have them faxed CNM directly to me Have not received the faxed form Spoke to Ammy She will fax directly to me * Evert Aguilera - 07/08/2024 11:22 AM EST Ammy Mcbride Pharmacist needs the CMN form to be filled out and faxed over, fax #: [phone]. documented in this encounter Plan of Treatment Upcoming Encounters Date Type Department Care Team (Late st Contact Info) Description 10/03/2024 8:45 AM EDT Office Visit Adult Medicine [address] [address] Wale Shaver PA [address] [place] [address] documented as of this encounter Visit Diagnoses Not on filedocumented in this encounter Additional Health Concerns Assessment Noted Time PHQ-9 Depression Total Score: 0 06/03/20 24 5:42 PM EST documented as of this encounter Care Teams Electromechanical Assembly Technician Relationship Specialty Start Date End Date Wale Shaver PA [address] [place] [address] PCP - General Internal Medicine 07/05/20 documented as of this encounter
--- OUTSIDE RECORDS SUMMARY | 2024-08-26 10:26 | XMS_ITS | Encounter Summary ---
Author Organization [facility] Address [address] [place] [address] Care Team Providers Care District Manager Primary Care Sales Name Role Phone Wale Shaver Primary Care Provider [phone] Encounter Details Date Type Department Care Team (Late st Contact Info) Description 05/26/2016 Orders Only [facility] [address] [place] [address] Lyric Lafleur MD [address] [place] [id number] Social History Tobacco Use Types Packs/Day Years Used Date Smoking Tobacco: Never Assessed Comments Unknown Sex and Gender Information Value Date Recorded Sex Assigned at Female 10/25/2020 7:56 PM EDT Legal Sex Female 3:48 AM EDT Gender Identity Female 10/25/2020 7:56 PM EDT Sexual Orientation Straight 10/25/2020 7: 56 PM EDT documented as of this encounter Plan of Treatment Upcoming Encounters Date Type Department Care Team (Late st Contact Info) Description 09/25/2024 10:30 AM EDT Office Visit [facility] [address] [place] [address] Denture Model Maker: Kia Melgar MD [address] [place] [address] documented as of this encounter Visit Diagnoses Not on filedocumented in this encounter Care Teams District Manager Primary Care Sales Relationship Specialty Start Date End Date Wale Shaver PCP - General Internal Medicine 09/24/20 documented as of this encounter
--- OUTSIDE RECORDS SUMMARY | 2024-08-26 10:26 | XMS_ITS | Continuity of Care Document ---
Author Organization [facility] Address [address] [place] [address] Phone Care Team Providers Care Chief Operator Hydroformer Name Role Phone Vivek CHUA FACS RVT [...] Providers Copied on Encounter [facility] MD MICHAUD, [address] [place] [address] [address] De [address], [id number], tel:[phone] [facility] [place] [facility] [place] No Information 3 Vivek Carrillo. [address] [place] [address], [place], [address], [place]. tel:[phone] Referring Provider: Wale Pacheco, [address] [place] [address], [address]. tel:[phone] [facility] MD MICHAUD, [address] [place] [address] Dr De Leon [address], [id number], [place] tel:[phone] [facility] - [place] [facility] [place] Venous insufficiency (chronic) (peripheral)Pa in in right leg 3 Vivek Carrillo. [address] [place] [address], [address], [place]. tel:[phone] Referring Provider: Wale Pacheco, [address] [place] [address], [address]. tel:[phone] Office/Oupt E&M New Pt 30 Mins [facility] MD MICHAUD, [address] [place] [address] Dr De Leon [address], [id number], [place] tel:[phone] [facility] - [place] Non-prs chronic ulcer oth prt right foot w unsp severityVenous insufficiency (chronic) (peripheral) 3 Vivek Carrillo. [address] [place] [address], [id number], [place]. tel:[phone] Referring Provider: Wale Pacheco, [address] [place] [address], [place], [address]. 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
--- OUTSIDE RECORDS SUMMARY | 2024-08-26 10:26 | XMS_ITS | Continuity of Care Document ---
Author Organization [facility] Address [address] [place] [address] Phone Care Team Providers Care Segment Producer Name Role Phone Sally Nolan MD Unavailable [...] 25mg/wk until 200mg/day Flonase 50 mcg/Actuation Nasal [place] inhale 1 spray by Intranasal route 2 times every day in each nostril 1.00 spray - Active Procedures Procedure Date Ua Dipstik/tablet; Non-auto W/ 13 OFFICE/OUTPATIENT VISIT, EST Cult Bacterial Urin; Rosendo Mathews 13 Smear Prim W/intrpt; Wet Mnt W 13 Offic/outpt E&m Estab Low-mod 2 Ag-immuno Mx Stp; Influen A/b- 12 Cult Bacterial Urin; Rosendo Mathews 12 Transferase; Aspartate Amino Routine Venipuncture Glu; Rosendo Lipid Panel Ua Dipstik/tablet; Non-auto W/ 12 Transferase; Alanine Amino Smear Prim W/interpt; Routine 2 OFFICE/OUTPATIENT VISIT, EST OFFICE/OUTPATIENT VISIT, EST Ua Dipstik/tablet; Non-auto W/ 12 Cult Bacterial Urin; Rosendo Mathews 12 OFFICE/OUTPATIENT VISIT, EST URINALYSIS, AUTO, W/O SCOPE Cult Bacterial Urin; Rosendo Mathews 12 OFFICE/OUTPATIENT VISIT, EST OFFICE/OUTPATIENT VISIT, EST Arthrocentesis/aspir/inj; Esther 12 Methylprednisolone Acetate-40 2 OFFICE/OUTPATIENT VISIT, EST URINALYSIS, AUTO, W/O SCOPE Cult Bacterial Urin; Rosendo Mathews 12 OFFICE/OUTPATIENT VISIT, EST Amylase Routine Venipuncture Hiv-1/Hiv-2, Single Assay Thyroid Stim Hormone Lipoprotein Direct Measur; Hdl 12 Glu; Rosendo Electrolyte Panel Creatinine; Bld Chol Serum Tot Complete Cbc W/Auto Diff Wbc Calcium; Tot Urea Nitro; Rosendo Bilirubin; Tot Transferase; Aspartate Amino Albumin; Serum Transferase; Alanine Amino OFFICE/OUTPATIENT VISIT, EST URINALYSIS, AUTO, W/O SCOPE Cult Bacterial Urin; Rosendo Mathews 12 Smear Prim W/interpt; Routine 2 OFFICE/OUTPATIENT [...] Diagnoses Date Provider Providers Copied on Encounter [address], [address] [place] [address], tel:[phone] [facility] No Information 6 Ovidio Zavala. [address] [place] [address], [facility], . tel:[phone] [facility] , [address] [place] [address], [id number], tel:[phone] [facility] No Information 3 Jared Mike. [address] [place] [address], [facility], . tel:[phone] OFFICE/OUTPA TIENT VISIT, [facility] , [address] [place] [address], [id number], [place] tel:[phone] [facility] urinary symptoms (acute) (chief complaint) DYSURIA 3 No Information [facility] , [address] [place] [address], [address] [place] [address], tel:[phone] [facility] DYSURIA 3 No Information Offic/outpt E&m Estab Low-mod [address], [place] , [place], [address] [place] [address], [place] tel:[phone] [facility] cold symptoms (chief complaint) Viral Infection, Unspecified 2 Diane Hannah. [address], [place], [facility], . tel:[phone] OFFICE/OUTPA TIENT VISIT, [facility] , [address] [place] [address], [address] [place] [address], [place] tel:[phone] [facility] flank pain (chief complaint) ABDMNAL PAIN GENERALIZEDBac kache 2 Jared Mckeon. [address] [place] [address], [facility], [place]. tel:[phone] OFFICE/OUTPA TIENT VISIT, [facility] , [address] [place] [address], [address] [place] [address], [place] tel:[phone] Acute Care Pod flank pain (chief complaint) Backache Dec- 2 Cy Orozcot. [address] [place] [address], [facility], [place]. tel:[phone] OFFICE/OUTPA TIENT VISIT, [facility] , [address] [place] [address], [address] [place] [address], [place] tel:[phone] [facility] flank pain (chief complaint) Cardiovascular ScreeningABDMN AL PAIN GENERALIZED 2 Jared Mckeon. [address] [place] [address], [facility], [place]. tel:[phone] OFFICE/OUTPA TIENT VISIT, [facility] , [address] [place] [address], [address] [place] [address], [place] tel:[phone] [facility] urinary symptoms (chief complaint) DYSURIA Dec-0 2 Wesley Chavarria. [address], [place], [place], [facility], [place]. tel:[phone] OFFICE/OUTPA TIENT VISIT, [facility] , [address] [place] [address], [address] [place] [address], tel:[phone] Acute Care Pod nausea (chief complaint) NAUSEA ALONE 2 No Information [facility] , [address] [place] [address], [address] [place] [address], tel:[phone] [facility] hip pain (chief complaint) ENTHESOPATHY OF HIP 2 Sánchezmarta Mckeon. [address] [place] [address], [facility], . tel:[phone] OFFICE/OUTPA TIENT VISIT, [facility] , [address] [place] [address], [id number], [place] tel:[phone] [facility] leg pain (chief complaint) LOC OSTEOAR NOS-SITE NEC 2 Jared Mckeon. [address] [place] [address], [facility], . tel:[phone] [facility] , [address] [place] [address], [address] [place] [address], tel:[phone] [facility] MALAISE AND FATIGUE NECSCREEN-CARD IOVASC NEC 2 Sánchezmarta Mckeon. [address] [place] [address], [facility], . tel:[phone] OFFICE/OUTPA TIENT VISIT, [facility] , [address] [place] [address], [address] [place] [address], tel:[phone] [facility] UTI (chief complaint)UR I (chief complaint) URIN TRACT INFECTION NOSACUTE URI NOS 2 No Information OFFICE/OUTPA TIENT VISIT, [facility] , [address] [place] [address], [id number], [place] tel:[phone] [facility] UTI (chief complaint) ABDMNAL PAIN GENERALIZEDOBE SITY NOSMALAISE AND FATIGUE NEC Aug- 2 Jared Mckeon. [address] [place] [address], [facility], . tel:[phone] OFFICE/OUTPA TIENT VISIT, [facility] , [address] [place] [address], [id number], [place] tel:[phone] [facility] flank pain (chief complaint)co ld symptoms (chief complaint) ABDMNAL PAIN GENERALIZEDSCR EEN-CARDIOVASC NECSCREEN-DIAB ETES MELLITUS 2 Jared Mckeon. [address] [place] [address], [facility], [place]. tel:[phone] Offic/outpt E&m [facility] , [address] [place] [address], [id number], [place] tel:[phone] [facility] anxiety (chief complaint) ALLERGIC RHINITIS NOSOTHER ATOPIC DERMATITISANXI ETY STATE NOSANXIETY STATE NOSOTHER ATOPIC DERMATITIS 2 Cy Gunderson. [address] [place] [address], [facility], . tel:[phone] Offic/outpt E&m [facility] , [address] [place] [address], [id number], [place] tel:[phone] [facility] sinusitis (chief complaint) ACUTE SINUSITIS NOS 2 Nathen Jemima. [address] [place] [address], [facility], . tel:[phone] OFFICE/OUTPA TIENT VISIT, [facility] , [address] [place] [address], [id number], [place] tel:[phone] [facility] anxiety (chief complaint) ANXIETY STATE NOS 1 Diane Hannah. [address], [place], [facility], [place]. tel:[phone] OFFICE/OUTPA TIENT VISIT, [facility] , [address] [place] [address], [address] [place] [address], tel:[phone] [facility] rash (chief complaint) DERMATITIS NEC 1 Jared Mckeon. [address] [place] [address], [facility], . tel:[phone] Offic/outpt E&m Estab Low-mod [facility] , [address] [place] [address], [id number], tel:[phone] [facility] sinus infection (chief complaint) ACUTE SINUSITIS NOS 1 No Information OFFICE/OUTPA TIENT VISIT, [facility] , [address] [place] [address], [address] [place] [address], tel:[phone] [facility] sinusitis (chief complaint) ACUTE SINUSITIS NOS 1 Jared Mckeon. [address] [place] [address], [facility], . tel:[phone] OFFICE/OUTPA TIENT VISIT, [facility] , [address] [place] [address], [address] [place] [address], tel:[phone] [facility] Rheumatoid Arthritis (chief complaint) LOC OSTEOAR NOS-SITE NEC 1 Jared Mckeon. [address] [place] [address], [facility], . tel:[phone] Preven Meds E&m Estab Pt; 18-[address], [address] [place] [address], tel:[phone] [facility] physical exam (chief complaint) ROUTINE MEDICAL EXAMROUTINE POST ACUTE CARE NURSE EXAMINATIONJOI NT PAIN-MULT JTS 1 Kyree Balbuena. [address], [place], [facility], . tel:[phone] OFFICE/OUTPA TIENT VISIT, [facility] , [address] [place] [address], [address] [place] [address], [place] tel:[phone] [facility] hand pain (chief complaint) LOC OSTEOAR NOS-SITE NEC 1 Jared Mckeon. [address] [place] [address], [facility], . 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 [address] [place] [address], [facility], . tel:[phone] OFFICE/OUTPA TIENT VISIT, [facility] , [address] [place] [address], [address] [place] [address], tel:[phone] [facility] back pain (chief complaint)si nus infection (chief complaint)Ra yneuds (chief complaint) ACUTE URI MULT SITES NECPAIN IN LIMB Sep- 1 Jared Mckeon. [address] [place] [address], [facility], . tel:[phone] OFFICE/OUTPA TIENT VISIT, [facility] , [address] [place] [address], [address] [place] [address], tel:[phone] [facility] Right Knee Pain (chief complaint)Ba ck pain (chief complaint) SPRAIN SHOULDER/ARM NECPAIN IN LIMBBACKACHE NOS Sep-0 1 Jared Mckeon. [address] [place] [address], [facility], . tel:[phone] Offic/outpt E&m [facility] , [address] [place] [address], [address] [place] [address], [place] tel:[phone] [facility] knee pain (chief complaint)sh oulder pain (chief complaint) SPRAIN SHOULDER/ARM NECPAIN IN LIMB 1 Nat De Dios. [address] [place] [address], [facility], [place]. tel:[phone] Offic/outpt E&m [facility] , [address] [place] [address], [address] [place] [address], [place] tel:[phone] [facility] upper respiratory infection (chief complaint) ACUTE URI MULT SITES NEC Aug- 1 Rosalva Hutchinson. [address] [address], [place], [place], [id number], [place]. tel:[phone] [facility] , [address] [place] [address], [id number], tel:[phone] [facility] No Information 0 1 [place] [place] [address], [facility], . tel:[phone] Offic/outpt E&m Estab Low-mod [facility] , [address] [place] [address], [id number], tel:[phone] [facility] establish care (chief complaint)ar thritis (chief complaint) PAIN IN LIMBCHONDROMAL ACIA PATELLAECHONDR OMALACIA PATELLAELOC OSTEOAR NOS-SITE NEC 8 1 [place] [place] [address], [facility], . tel:[phone] Family History Family Member Type Diagnosis Age At Onset Sister Problem (finding) UTI, endometriosis Mother Problem (finding) Rayneud Payers Payer name Insurance type Covered constitution party ID Authoriza tion(s) No Information Social History Type Description Quantity Date Captured Comments Sex Female Smoking Status No Information Chief Complaint And Reason For Visit No Information Reason For Referral Reason For Referral No Information Plan Of Treatment Date Type Action Status Goal POST ACUTE CARE NURSE exam. Due on due Goal Td vaccine. Due on 13 due Goal H&P. Due on due Goal PAP. Due on due Goal Breast exam. Due on 012 due Goal Tdap. Due on due Goal Diabetes Screening. Due on due Future Order: Lab Order [...] t No Information Instructions Date Instruction Chuy arellano Prescribe medications Assessments Type Assessment Date No Information Patient Care Teams Name Effective Dates (start - stop) Status Members No Information
--- OUTSIDE RECORDS SUMMARY | 2024-08-26 10:26 | XMS_ITS | Encounter Summary ---
Author Organization [facility] Address [address] [place] [address] Care Team Providers Care Package Delivery Room Service Runner Name Role Phone Wale Shaver Primary Care Provider Encounter Details Date Type Department Care Team (Latest Contact Info) Description 07/10/2017 Mimvi Message [facility] [address] [place] [address] Shipping And Receiving Clerk: Lisa Chau MD [address] [place] [address] RE: Visit Follow-Up Question Social History Tobacco [...] I talked to the kind [facility] at [facility] they are working on getting me new [...] Description 09/25/2024 10:30 AM EDT Office Visit [facility] [address] [place] [address] Shipping And Receiving Clerk: Kia Melgar MD [address] [place] [address] documented as of this encounter Visit Diagnoses Not on filedocumented in this encounter Care Teams Package Delivery Room Service Runner Relationship Specialty Start Date End Date Wale Shaver PCP - General Internal Medicine 09/24/20 documented as of this encounter
--- OUTSIDE RECORDS SUMMARY | 2024-08-26 10:26 | XMS_ITS | Encounter Summary ---
Author Organization [facility] Address [address] [place] [address] Care Team Providers Care Analyst Market Intelligence Name Role Phone Wale Shaver Primary Care Provider [phone] Encounter Details Date Type Department Care Team (Latest Contact Info) Description 06/16/2017 Star Analyticst Message [facility] [address] [place] [address] Radio Installer: Lisa Chau MD [address] [place] [address] [phone] Prescription Question Social History Tobacco Use Types [...] Description 09/25/2024 10:30 AM EDT Office Visit [facility] [address] [place] [address] Radio Installer: Kia Melgar MD [address] [place] [address] [phone] documented as of this encounter Visit Diagnoses Not on filedocumented in this encounter Care Teams Analyst Market Intelligence Relationship Specialty Start Date End Date Wale Shaver PCP - General Internal Medicine 09/24/20 documented as of this encounter
--- OUTSIDE RECORDS SUMMARY | 2024-08-26 10:26 | XMS_ITS | Clinical Summary ---
Author Organization [facility] Address [address] [place] [address] Care Team Providers Care Chief Legal Officer Name Role Phone SharshaunnaWale dubose Primary Care Provider [phone] Allergies Active Allergy Reactions Criticality Noted Date Comments Adalimumab Rash Low 12/17/2019 Adhesive Unknown Adhesive Tape-Silicones Unknown 04/02/2015 [place] Migraine Azithromycin Hives,Dermatitis 06/27/2018 Rash/Dermatitis Balsam [place]-Zinc Oxide Unknown 08/22/2019 Bee Venom Protein (Honey [...] Active INHALER, ASSIST DEVICES (AEROCHAMBER PLUS FLOW-VU [facility]) Use as directed. Active amLODIPine (NORVASC) 5 mg tablet Take 5 mg by mouth daily. Active fexofenadine (ZORAN) 60 mg tablet Take 180 mg by mouth nightly. Active cholecalciferol, vitamin D3, 5,000 unit tablet Take 1 tablet by mouth. Active EPINEPHrine (EPIPEN) 0.3 mg/0.3 mL injection syringe Inject as directed. Active blood glucose diagnostoc (freestyle) [facility] FreeStyle Lancets Miscellaneous TEST twice a [...] (04/07/2021): Added automatically from request for surgery [id number] Tinea cruris 02/13/2017 Intertrigo 02/13/2017 Tinea corporis [...] 08/05/2019 1:49 PM EST Plan of Treatment Upcoming Encounters Date Type Department Care Team (Late st Contact Info) Description 09/25/2024 10:30 AM EDT Office Visit [facility] [address] [place] [address] Utility Plant Operative: Kia Melgar MD [address] [place] [address] Health Maintenance Due Date Last Done Comments Cervical Cancer Screening 1973 Cologuard 1973 Colon Cancer Screening 1973 Colonoscopy 1973 FOBT / Fit Test 1973 HIV Screening 1973 HPV and Pap Smear 1973 Pap Smear 1973 Sigmoidoscopy 1973 Hepatitis B Vaccines (1 of 3 - 19+ 3-dose series) 1992 Mammogram 09/21/2017 09/22/2015 Zoster Vaccines (1 of 2) 2023 COVID-19 Vaccine (4 - 2023-2 5 season) 2024 04/15/2021, 02/03/2021, 01/12/2021 Alcohol/Substance Use Screening 07/16/2024 Depression Screening and Follow-Up 07/16/2024 Social Drivers of Health Armida ual Screening 07/16/2024 DTaP,Tdap,and Td Vaccines (2 - Td or Tdap) 04/02/2025 04/02/2015 Pneumococcal Vaccine: Pediat jayda (0-5 Years) and At-Risk Patients (6-64 Years) (3 of 3 - PPSV23 or PCV20) 2038 04/19/2022, 2016, 03/21/2016 RSV Vaccine (60+ years old a nd patients) (1 - 1-dose 75+ series) 2048 Hepatitis C Screening Completed 05/06/2019, 016 Influenza Vaccine Completed 05/19/2024, , 04/19/2022, Additional history exists Procedures * Due to [place] [employer] law, this organization might not be sharing negative HIV tests. Procedure Name Priority Date/Time Associated Diagnosis Comments HEPATITIS C ANTIBODY W/REFLEX TO HCV RNA, QUANTITATIVE PCR Routine 05/06/2019 1:02 PM EDT Psoriatic arthropathy (CMS/HCC) (HCC) from Last 3 Months or Most Recently Relevant to Health Maintenance Results * Due to [place] [employer] law, this organization might not be sharing negative HIV tests. * Hepatitis C Antibody w/Reflex to HCV RNA, Quantitative PCR (05/06/2019 1:02 PM EDT) Hepatitis C Antibody NON-REACT VEENA NON-REACT VEENA 05/07/2019 1:19 AM EDT [facility] Signal To Cut-Off 0.05 <1.00 05/07/2019 1:19 AM EDT [facility] Comment: HCV antibody was non-reactive. There is no laboratory evidence of HCV infection. In most cases, no further action is required. However, if recent HCV exposure is suspected, a test for HCV RNA (test code 42579) is suggested. For additional information please refer to http://education.ClearAccess/faq/MBP25w9 (This link is being provided for informational/ educational purposes only.) Blood specimen (specimen) Structure of peripheral vein / Unknown Venipuncture / Unknown 05/06/2019 1:02 PM EDT 05/06/2019 1:35 PM EDT Narrative [facility] [place] - 05/07/2019 1:19 AM EDT [facility] Received Date: us Ronald Baldwin MD LAB BLOOD ORDERABLES Final Resul t [facility] [address], [place] [id number], [place] [phone] [facility] [address], [address] [place] [id number], [place] [phone] from Last 3 Months or Most Recently Relevant to Health Maintenance Insurance [employer] MEDICARE Care Teams Chief Legal Officer Relationship Specialty Start Date End Date Wale Shaver PCP - General Internal Medicine 09/24/20
--- OUTSIDE RECORDS SUMMARY | 2024-08-26 10:26 | XMS_ITS | Encounter Summary ---
Author Organization [facility] Address [address] [place] [address] Care Team Providers Care Motorboat Mechanic Helper Name Role Phone Wale Shaver Primary Care Provider [phone] Encounter Details Date Type Department Care Team (Latest Contact Info) Description 05/04/2017 AvidRetailt Message [facility] [address] [place] [phone] Thermostat Mechanic: Lisa Chau MD [address] [place] [address] Non-Urgent Medical Question Social History Tobacco Use [...] Description 09/25/2024 10:30 AM EDT Office Visit [facility] [address] [place] [address] Thermostat Mechanic: Kia Melgar MD [address] [place] [address] documented as of this encounter Visit Diagnoses Not on filedocumented in this encounter Care Teams Motorboat Mechanic Helper Relationship Specialty Start Date End Date Wale Shaver PCP - General Internal Medicine 09/24/20 documented as of this encounter
--- OUTSIDE RECORDS SUMMARY | 2024-08-26 10:26 | XMS_ITS | Encounter Summary ---
Author Organization [facility] Address [address] [place] [address] Care Team Providers Care Timber Framer Name Role Phone Wale Shaver Primary Care Provider [phone] Encounter Details Date Type Department Care Team (Latest Contact Info) Description 08/21/2017 Noble Biomaterialshart Message [facility] [address] [place] [phone] Builder Beam: Lisa Chau MD [address] [place] [address] [phone] RE: Test Results Question Social History Tobacco [...] Description 09/25/2024 10:30 AM EDT Office Visit [facility] [address] [place] [phone] Builder Beam: Kia Melgar MD [address] [place] [address] [phone] documented as of this encounter Visit Diagnoses Not on filedocumented in this encounter Care Teams Timber Framer Relationship Specialty Start Date End Date Wale Shaver PCP - General Internal Medicine 09/24/20 documented as of this encounter
--- OUTSIDE RECORDS SUMMARY | 2024-08-26 10:26 | XMS_ITS | Encounter Summary ---
Author Organization [facility] Address [address] [place] [address] Care Team Providers Care Clean Rice Grader And Reel Tender Name Role Phone Wale Shaver Primary Care Provider Encounter Details Date Type Department Care Team (Latest Contact Info) Description 10/02/2017 Coverhart Message [facility] [address] [place] [address] Snow Maker: Lisa Chau MD [address] [place] [address] [phone] Prescription Question Social History Tobacco Use Types [...] Description 09/25/2024 10:30 AM EDT Office Visit [facility] [address] [place] [address] Snow Maker: Kia Melgar MD [address] [place] [address] [phone] documented as of this encounter Visit Diagnoses Not on filedocumented in this encounter Care Teams Clean Rice Grader And Reel Tender Relationship Specialty Start Date End Date Wale Shaver PCP - General Internal Medicine 09/24/20 documented as of this encounter
--- OUTSIDE RECORDS SUMMARY | 2024-08-26 10:26 | XMS_ITS | Encounter Summary ---
Author Organization [facility] Address [address] [place] [address] Care Team Providers Care Test Preparation Tutor Name Role Phone Wale Shaver Primary Care Provider [phone] Encounter Details Date Type Department Care Team (Latest Contact Info) Description 07/19/2017 Ad Knightshart Message [facility] [address] [place] [address] Game Engineer: Lisa Chau MD [address] [place] [address] [phone] Prescription Question Social History Tobacco Use Types [...] Description 09/25/2024 10:30 AM EDT Office Visit [facility] [address] [place] [address] Game Engineer: Kia Melgar MD [address] [place] [address] [phone] documented as of this encounter Visit Diagnoses Not on filedocumented in this encounter Care Teams Test Preparation Tutor Relationship Specialty Start Date End Date Wale Shaver PCP - General Internal Medicine 09/24/20 documented as of this encounter
--- OUTSIDE RECORDS SUMMARY | 2024-08-26 10:26 | XMS_ITS | Clinical Summary ---
Author Organization Patient Business Ser [facility] Address [address] [place] [address] Care Team Providers Care Boat Designer Name Role Phone Wale Shaver Primary Care Provider [phone] Allergies Active Allergy Reactions Criticality Noted Date [...] closing/swelling Shellfish Containing Products Hives 2020 Medications EPINEPHrine (EpiPen 2-Ramakrishna) 0.3 mg/0.3 mL injection Inject as directed. Active magnesium oxide 250 mg magnesium tablet Take 1 tablet (250 mg total) by mouth 1 (one) time each day. Active cholecalcifero l (VITAMIN D-3) 5,000 Units tablet Take 1 [...] hours as needed for Cough or Wheezing. 06/18/20 18 Active nystatin (MYCOSTATIN) 100,000 unit/gram powder Apply topically 4 times daily. Active triamcinolone (NASACORT) 55 mcg nasal inhaler 1 [place] by Nasal route 2 times daily as needed for Other. 01/14/20 22 Active levocetirizine (XYZAL) 5 mg tablet Take 5 mg by mouth daily. 12/22/19 22 Active hydrocortisone 2.5 % cream Apply twice daily for 7 to 14 days 05/24/20 22 Active certolizumab pegol (Cimzia Powder for Reconst) 400 mg (200 mg x 2 vials) kit Inject 200 mg into the skin. 04/19/20 22 Active FREESTYLE LANCETS [facility] Use to test blood sugars BID 01/25/20 23 Active hydrOXYzine HCL (ATARAX) 25 mg tablet Take 2 Tablets by mouth every 8 hours as needed for Itching. 11/23/19 24 Active blood sugar diagnostic (FreeStyle Lite Strips) test strip USE DIRECTED TO CHECK BLOOD SUGAR once daily 12/04/19 24 Active leucovorin 5 mg tablet TAKE 1 TABLET BY MOUTH THE DAY AFTER YOU TAKE METHOTREXATE 12/26/19 24 Active methotrexate/P F (RASUVO, PF, SUBQ) 01/10/20 24 Active acetaminophen- codeine (TYLENOL #3) 300-30 mg per tablet Take 1 tablet by mouth 3 (three) times a day if needed. 02/06/20 24 Active glipiZIDE (GLUCOTROL) 5 mg tablet Take 1 Tablet by mouth 2 times daily (before meals). 02/06/20 24 Active calcium carbonate (CALCIUM 600 ORAL) Take 1 Tablet by mouth. 04/19/20 22 Active loteprednol etabonate (Lotemax SM) 0.38 % drops,gel INSTILL 1 DROP INTO BOTH EYES TWICE DAILY FOR TWO WEEKS THEN 1 DROP EVERY DAY IN BOTH EYES FOR TWO WEEKS 07/20/19 24 Active potassium chloride (KLOR-CON) 10 mEq CR tablet Take 1 tablet (10 mEq total) by mouth 2 (two) times a day. 09/16/19 23 Active UNABLE TO FIND Insulin Pen Needle [...] a day with meals. 270 tablet 1 06/04/20 24 Active metFORMIN XR (GLUCOPHAGE-XR ) 500 mg 24 hr tablet Take 4 tablets (2,000 mg total) by mouth 1 (one) time each day. Do not crush, chew, or split. 360 tablet 3 06/04/20 24 Active FreeStyle Lancets 28 gauge lancets USE TO TEST BLOOD SUGAR TWICE DAILY 200 each 06/25/20 24 Active rOPINIRole (REQUIP) 0.25 mg tabletIndicati ons:restless leg syndrome Take 3 tablets (0.75 mg total) by mouth 3 (three) times a day. 270 tablet 06/25/20 24 Active pantoprazole (PROTONIX) 40 mg EC tablet Take 1 tablet (40 mg total) by mouth 1 (one) time each day. 90 tablet 1 06/26/20 24 Active oxyCODONE (ROXICODONE) 5 mg immediate release tabletIndicati ons:Osteomyeli tis, unspecified site, unspecified type (CMS/HCC) Take 1 tablet (5 mg total) by mouth every 4 (four) hours if needed for severe pain. Max Daily Amount: 30 mg 42 tablet 07/23/19 25 Active cyclobenzaprin e (FLEXERIL) 10 mg tabletIndicati ons:Osteomyeli tis, unspecified site, unspecified type (CMS/HCC) Take 1 tablet (10 mg total) by mouth 3 (three) times a day if needed for muscle spasms. 90 tablet 3 07/23/19 25 Active dapagliflozin propanediol (Farxiga) 10 mg tablet TAKE 1 TABLET BY MOUTH DAILY 30 tablet 11 08/22/19 25 Active NIFEdipine (ADALAT CC) 30 mg 24 hr tablet TAKE 1 TABLET BY MOUTH DAILY 90 tablet 3 08/22/19 25 Active dapagliflozin propanediol (FARXIGA) 10 mg tablet Take 1 tablet (10 mg total) by mouth 1 (one) time each day. 02/06/20 24 025 Discontinued cephalexin (KEFLEX) 500 mg capsule Take 2 capsules (1,000 mg total) by mouth 4 (four) times a day. 06/16/20 24 025 Active Problems Problem Noted Date Diagnosed Date [...] (04/24/2024): Onset 2013. RF and CCP negative. 2014-15: No response to hydroxychloroquine even with the addition of sulfasalazine. 2016: Methotrexate started. Humira was added but no [...] 8:00 AM EST Office Visit Adult Medicine [address] [phone] Wale Shaver PA Osteomyelitis, unspecified site, unspecified type ([facility]/HCC) (Primary Dx); Type 2 diabetes mellitus with microalbuminuria, without long-term current use of insulin ([facility]); Pure hypercholesterolemi a; Psoriatic arthritis ([facility]/HCC) 07/18/2024 Telephone Adult Medicine [address] [phone] Wale Shaver PA Appointment 07/18/2024 Telephone Adult Medicine [address] [phone] Aliya Emerson LPN Fitting for DME (Dswo form for lancets) 07/08/2024 Telephone Adult Medicine [address] [phone] Wale Shaver PA Fitting for DME 06/10/2024 Telephone Adult Medicine [address] [phone] Gabriela Funes RN 06/04/2024 2:07 PM EST - 06/04/2024 11:59 PM EST Hospital Encounter Radiology Department - [address] [phone] Encounter for screening mammogram for malignant neoplasm [...] 9:00 AM EST Office Visit Adult Medicine [place] [address] [phone] Wale Shaver PA Type 2 diabetes mellitus with microalbuminuria, without long-term current use of insulin ([facility]/HCC) (Primary Dx); Encounter for screening mammogram for malignant neoplasm of breast; Chilblains, sequela; Elevated alkaline phosphatase level; Fibromyalgia; Gastroesophageal reflux disease without esophagitis; Other migraine without status migrainosus, not intractable; Psoriasis; Psoriatic arthritis (CMS/HCC); Pure hypercholesterolemi a; Subclinical hypothyroidism; Morbid obesity with BMI of 60.0-69.9, adult ([facility]/HCC); Rheumatoid arthritis, involving unspecified site, unspecified whether rheumatoid factor present ([facility]/HCC); Facial swelling from Last 3 Months Immunizations [...] HYSTERECTOMY PROCEDURE:HYSTERECTOMY KNEE ARTHROSCOPY 2007 Right PROCEDURE: IA ARTHROSCOPY KNEE DIAGNOSTIC W/WO SYNOVIAL BX SPX; COMMENT: x 2 arthroscopic TONSILLECTOMY PROCEDURE: HISTORICAL TONSILLECTOMY ELBOW SURGERY 11/24/2016 Right PROCEDURE: HISTORICAL ELBOW SURGERY; COMMENT: Open ulnar nerve neurolysis w/ anterior subcutaneous transposition CHOLECYSTECTOMY 2005 PROCEDURE: HISTORICAL CHOLECYSTECTOMY OTHER SURGICAL HISTORY 05/29/2017 PROCEDURE: INJECT NERVE BLOCK,VERT FACET JOINT; COMMENT: L4-5, L5-S1 (05/2016 T5-6, 06/2015 T5-6, 04/2014 C5-6, C6-7, 09/2013 R T12, 06/2013 R T10 and T11, 02/2013 T4-5, 5-6) KNEE SURGERY PROCEDURE: HISTORICAL KNEE SURGERY; COMMENT: patellar realignment, removal of harward COLONOSCOPY 05/04/2020 PROCEDURE: HISTORICAL COLONOSCOPY; COMMENT: small polyp - dr. stevens UPPER GASTROINTESTINAL ENDOSCOPY 05/04/2020 PROCEDURE: IA UPPER GI ENDOSCOPY PERFORMED; COMMENT: gastritis - dr. stevens Medical History Medical History Date Comments Hypertension DX:Hypertension Rheumatoid arthritis ([facility]) D X:Rheumatoid arthritis ([facility]) Fibromyalgia DX:Fibromyalgia GERD (gastroesophageal reflux disease) DX:GERD (gastroesophageal reflux disease) Asthma DX:Asthma Rheumatoid arthritis ([facility]) D X:Rheumatoid arthritis ([facility]) Morbid obesity with BMI of 5 0.0-59.9, adult ([facility]) 09/07/2005 DX:Morbid obesity with BMI o f 50.0-59.9, adult ([facility]) Psoriasis 08/10/2017 DX:Psoriasis Migraine 03/29/2009 DX:Migraine 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 DX:Scha mberg's capillaritis Type 2 diabetes mellitus wit hout complications ([facility]) 08/01/2017 DX:Type 2 diabetes mellitus without complications ([facility]) Raynaud disease 04/02/2015 DX:Raynaud disea se; COMMENT: On amlodipine Osteoarthritis 04/02/2015 DX:Osteoarthriti s; COMMENT: Spine, knee RA (rheumatoid arthritis) ([facility]) 05/11/2015 DX:RA (rheumatoid arthritis) ([facility]); COMMENT: Seronegative with high markers of inflammation- [...] Father Heart attack Maternal Grandfather fr om [place] @ 60 Osteoporosis Maternal Grandmother Rheum arthritis [...] on file Sexual Orientation Not on file Obstetrics History Last Filed [...] 8:45 AM EDT Office Visit Adult Medicine [facility] [address] [place], [place] [phone] Wale Shaver PA [address], [place] Health Maintenance Due Date Last Done Comments Breast Cancer Screening 1973 Hepatitis A Vaccines (1 of 2 - Risk 2-dose series) 1992 Hepatitis B Vaccines (1 of 3 - 19+ 3-dose series) 1992 Zoster Vaccines (1 of 2) 1992 DTaP,Tdap,and Td Vaccines (3 - Td or Tdap) 10/01/2015 04/02/2015, 04/30/2013 HIV Screening 05/02/2020 Medicare Annual Wellness Visit 05/02/2020 Social Influencers of Health Screening 05/02/2020 COVID-19 Vaccine ( season) 2024 04/15/2021, 02/03/2021, 01/12/2021 Diabetes: Annual Foot Exam 09/10/2024 09/10/2023 Diabetes: Annual Retina Eye Exam 09/18/2024 09/19/2023 Diabetes: Blood Sugar Control Test (HGBA1C) 11/30/2024 06/02/2024, 02/05/2024, 02/05/2024 Diabetes: Annual Urine Albumin-Creatinine Ratio (uACR) 02/04/2025 02/05/2024, 12/17/2019 Diabetes: Annual GFR (Glomerular Filtration Rate) 06/02/2025 06/02/2024, 02/05/2024, 02/05/2024, Additional history exists Depression Screening 06/03/2025 06/03/2024, 01/22/20 24 Pneumococcal Vaccine: 50+ Years (4 of 4 - PCV20 or PCV21) 04/19/2027 04/19/2022, 2016, 03/21/2016 Pneumococcal Vaccine: Pediatrics (0 to 5 Years) and At-Risk Patients (6 to 64 Years) (4 of 4 - PCV20 or PCV21) 04/19/2027 04/19/2022, 2016, 03/21/2016 Cervical Cancer Screening: HPV 05/24/2027 05/24/2022 Cholesterol Screening (Lipid Panel) 06/02/2029 06/02/2024, 02/05/2024, 02/05/2024, Additional history exists Colorectal Cancer Screening: Colonoscopy 05/04/2030 05/04/2020 Hepatitis C Screening Completed 08/30/2018, 015 Influenza [...] patient's age to complete this topic Meningococcal B Vacine Aged Out No lo nger eligible based on patient's age to complete [...] status migrainosus, not intractable Psoriasis Psoriatic arthritis ([facility]/HCC) Pure hypercholesterolemi a Type 2 diabetes mellitus with microalbuminuria, without long-term current use of insulin ([facility]) Subclinical hypothyroidism Morbid obesity with BMI of 60.0-69.9, adult ([facility]) Rheumatoid arthritis, involving unspecified site, unspecified whether rheumatoid factor present ([facility]) Facial swelling CBC WITH AUTO DIFFERENTIAL Routine 06/02/2024 10:05 AM EST Gastroesophageal reflux disease without esophagitis Psoriatic arthritis ([facility]/HCC) Hypokalemia Pure hypercholesterolemi a Type 2 diabetes mellitus with microalbuminuria, without long-term current use of insulin ([facility]/HCC) Thyroid nodule Subclinical hypothyroidism Morbid obesity with BMI of 60.0-69.9, adult ([facility]) Fibromyalgia THYROID STIMULATING HORMONE WITH REFLEX TO FREE T4 AND FREE T3 Routine 06/02/2024 10:05 AM EST Gastroesophageal reflux disease without esophagitis Psoriatic arthritis ([facility]/HCC) Hypokalemia Pure hypercholesterolemi a Type 2 diabetes mellitus with microalbuminuria, without long-term current use of insulin ([facility]) Thyroid nodule Subclinical hypothyroidism Morbid obesity with BMI of 60.0-69.9, adult ([facility]/HCC) Fibromyalgia CBC AND DIFFERENTIAL Routine 06/02/2024 10:05 AM EST Gastroesophageal reflux disease without esophagitis Psoriatic arthritis (CMS/HCC) Hypokalemia Pure hypercholesterolemi a Type 2 diabetes mellitus with microalbuminuria, without long-term current use of insulin (CMS/HCC) Thyroid nodule Subclinical hypothyroidism Morbid obesity with BMI of 60.0-69.9, adult ([facility]) Fibromyalgia COMPREHENSIVE METABOLIC PANEL Routine 06/02/2024 10:05 AM EST Gastroesophageal reflux disease without esophagitis Psoriatic arthritis (CMS/HCC) Hypokalemia Pure hypercholesterolemi a Type 2 diabetes mellitus with microalbuminuria, without long-term current use of insulin (CMS/HCC) Thyroid nodule Subclinical hypothyroidism Morbid obesity with BMI of 60.0-69.9, adult ([facility]) Fibromyalgia HEMOGLOBIN A1C Routine 06/02/2024 10:05 AM EST Gastroesophageal reflux disease without esophagitis Psoriatic arthritis (CMS/HCC) Hypokalemia Pure hypercholesterolemi a Type 2 diabetes mellitus with microalbuminuria, without long-term current use of insulin (CMS/HCC) Thyroid nodule Subclinical hypothyroidism Morbid obesity with BMI of 60.0-69.9, adult ([facility]) Fibromyalgia LIPID PANEL WITH REFLEX TO DIRECT LDL Routine 06/02/2024 10:05 AM EST Gastroesophageal reflux disease without esophagitis Psoriatic arthritis (CMS/HCC) Hypokalemia Pure hypercholesterolemi a Type 2 diabetes mellitus with microalbuminuria, without long-term current use of insulin (CMS/HCC) Thyroid nodule Subclinical hypothyroidism Morbid obesity with BMI of 60.0-69.9, adult ([facility]) Fibromyalgia URINE ALBUMIN CREATININE RATIO Routine 02/05/2024 DEPRESSION SCREENING Routine 01/22/2024 DIABETES EYE EXAM Routine 09/19/2023 DIABETES FOOT EXAM Routine 09/10/2023 HPV Routine 05/24/2022 COLONOSCOPY Routine 05/04/2020 HEPATITIS [...] Signed Date: 06/06/2024 09:54 ET Workstation ID: [id number] Transcribed By: Self Edit Transcribed Date: 06/04/2024 [...] Signed Date: 06/06/2024 09:54 ET Workstation ID: [id number] Transcribed By: Self Edit Transcribed Date: 06/04/2024 23:56 ET Wale PRATT IMG MRI PROCEDURES Final Result * Thyroid stimulating hormone with reflex to free t4 and free t3 (06/02/2024 10:05 AM EST) TSH 1.68 0.40 - 4.00 mcIU/mL LAB CHEMISTRY METHOD 06/02/2024 2:56 PM EST [facility] Blood Venous blood specimen / Unknown Venipuncture / Unknown 06/02/2024 10:05 AM EST 06/02/2024 10:05 AM EST Wale PRATT LAB BLOOD ORDERABLES Juliana l Result [facility] [address] [place] [address], [place] [phone] * Lipid panel with reflex to direct LDL (06/02/2024 10:05 AM EST) Cholesterol 184 0 - 200 mg/dL LAB CHEMISTRY METHOD 06/02/2024 2:57 PM [facility] Triglycerides 128 0 - 150 mg/dL LAB CHEMISTRY METHOD 06/02/2024 2:57 PM [facility] HDL 85 >=40 mg/dL LAB CHEMISTRY METHOD 06/02/2024 2:57 PM [facility] LDL Calculated 73 0 - 100 mg/dL LAB CHEMISTRY METHOD 06/02/2024 2:57 PM [facility] VLDL Cholesterol Alexander 25.6 mg/dL LAB CHEMISTRY METHOD 06/02/2024 2:57 PM [facility] Non HDL Chol. (LDL+VLDL) 99 <145 mg/dL LAB CHEMISTRY METHOD 06/02/2024 2:57 PM [facility] Chol/HDL Ratio 2.2 0.0 - 4.4 LAB CHEMISTRY METHOD 06/02/2024 2:57 PM [facility] Blood Venous blood specimen / Unknown Venipuncture / Unknown 06/02/2024 10:05 AM EST 06/02/2024 10:05 AM EST Wale PRATT LAB BLOOD ORDERABLES Juliana epperson Result [facility] [address] [place] [address], * (ABNORMAL) CBC auto differential (06/02/2024 10:05 AM EST) WBC 7.8 4.8 - 10.8 K/mcL LAB HEMETOLOGY METHOD 06/02/2024 1:15 PM EST [facility] RBC 4.60 3.80 - 4.80 M/mcL LAB HEMETOLOGY METHOD 06/02/2024 1:15 PM EST [facility] Hemoglobin 14.9 11.5 - 16.0 g/dL LAB HEMETOLOGY METHOD 06/02/2024 1:15 PM [facility] Hematocrit 45.7 35.0 - 47.0 % LAB HEMETOLOGY METHOD 06/02/2024 1:15 PM EST [facility] MCV 99.3(H) 79.0 - 98.0 FL LAB HEMETOLOGY METHOD 06/02/2024 1:15 PM EST [facility] MCH 32.4(H) 27.0 - 32.0 pcg LAB HEMETOLOGY METHOD 06/02/2024 1:15 PM EST [facility] MCHC 32.6 32.0 - 37.0 g/dL LAB HEMETOLOGY METHOD 06/02/2024 1:15 PM EST [facility] RDW 13.2 11.0 - 15.0 % LAB HEMETOLOGY METHOD 06/02/2024 1:15 PM EST [facility] Platelets 266 130 - 400 K/mcL LAB HEMETOLOGY METHOD 06/02/2024 1:15 PM [facility] MPV 10.1 7.0 - 11.0 FL LAB HEMETOLOGY METHOD 06/02/2024 1:15 PM EST [facility] NRBC 0.0 <1.0 % LAB HEMETOLOGY METHOD 06/02/2024 1:15 PM [facility] NRBC Absolute 0.00 <0.10 K/mcL LAB HEMETOLOGY METHOD 06/02/2024 1:15 PM [facility] Neutrophils Relative 62.6 % LAB HEMETOLOGY METHOD 06/02/2024 1:15 PM [facility] Lymphocytes Relative 27.0 % LAB HEMETOLOGY METHOD 06/02/2024 1:15 PM [facility] Monocytes Relative 8.2 % LAB HEMETOLOGY METHOD 06/02/2024 1:15 PM [facility] Eosinophils Relative 1.4 % LAB HEMETOLOGY METHOD 06/02/2024 1:15 PM [facility] Basophils Relative 0.4 % LAB HEMETOLOGY METHOD 06/02/2024 1:15 PM [facility] Immature Granulocytes Relative 0.4 % LAB HEMETOLOGY METHOD 06/02/2024 1:15 PM [facility] Neutrophils Absolute 4.86 1.50 - 7.00 K/mcL LAB HEMETOLOGY METHOD 06/02/2024 1:15 PM [facility] Lymphocytes Absolute 2.10 1.00 - 5.00 K/mcL LAB HEMETOLOGY METHOD 06/02/2024 1:15 PM [facility] Monocytes Absolute 0.64 0.20 - 1.00 K/mcL LAB HEMETOLOGY METHOD 06/02/2024 1:15 PM [facility] Eosinophils Absolute 0.11 0.00 - 0.50 K/mcL LAB HEMETOLOGY METHOD 06/02/2024 1:15 PM [facility] Basophils Absolute 0.03 0.00 - 0.20 K/mcL LAB HEMETOLOGY METHOD 06/02/2024 1:15 PM [facility] Immature Granulocytes Absolute 0.03 0.00 - 0.03 K/mcL LAB HEMETOLOGY METHOD 06/02/2024 1:15 PM EST [facility] Blood Venous blood specimen / Unknown Venipuncture / Unknown 06/02/2024 10:05 AM EST 06/02/2024 10:05 AM EST Wale Shaver [place] LAB BLOOD ORDERABLES Juliana l Result Performing Organization Address [facility]/ZIP Co de Phone Number [facility] [address] [place] [address], [place] [phone] * (ABNORMAL) Hemoglobin A1c (06/02/2024 10:05 AM EST) Hemoglobin A1C 12.0(H) <6.5 % LAB CHEMISTRY METHOD 06/03/2024 7:42 PM EST [facility] Mean Bld Glu Estim. 298 mg/dL LAB CHEMISTRY METHOD 06/03/2024 7:42 PM [facility] Blood Venous blood specimen / Unknown Venipuncture / Unknown 06/02/2024 10:05 AM EST 06/02/2024 10:05 AM EST Wale PRATT LAB BLOOD ORDERABLES Juliana l Result Performing Organization Address [facility]/ZIP Co de Phone Number [facility] [address] [place] [address], [place] [phone] * (ABNORMAL) Comprehensive metabolic panel (06/02/2024 10:05 AM EST) Sodium 140 133 - 145 mmol/L LAB CHEMISTRY METHOD 06/02/2024 2:56 PM EST [facility] Potassium 3.9 3.5 - 5.5 mmol/L LAB CHEMISTRY METHOD 06/02/2024 2:56 PM [facility] Chloride 105 96 - 110 mmol/L LAB CHEMISTRY METHOD 06/02/2024 2:56 PM [facility] CO2 26 21 - 32 mmol/L LAB CHEMISTRY METHOD 06/02/2024 2:56 PM [facility] Anion Gap 9 3 - 11 LAB CHEMISTRY METHOD 06/02/2024 2:56 PM [facility] Glucose 261(H) 70 - 100 mg/dL LAB CHEMISTRY METHOD 06/02/2024 2:56 PM [facility] BUN 10 5 - 25 mg/dL LAB CHEMISTRY METHOD 06/02/2024 2:56 PM [facility] Creatinine 0.66 0.50 - 1.10 mg/dL LAB CHEMISTRY METHOD 06/02/2024 2:56 PM [facility] eGFR 107 >=60 mL/min/1. 73m2 LAB CHEMISTRY METHOD 06/02/2024 2:56 PM [facility] Comment:Calculation based on the??Chronic Kidney Disease Epidemiology Collaboration (CKD-EPI) equation refit??without adjustment for race. BUN/Creatinine Ratio 15.2 LAB CHEMISTRY METHOD 06/02/2024 2:56 PM [facility] Calcium 9.4 8.5 - 10.5 mg/dL LAB CHEMISTRY METHOD 06/02/2024 2:56 PM [facility] AST (SGOT) 18 10 - 42 unit/L LAB CHEMISTRY METHOD 06/02/2024 2:56 PM [facility] ALT (SGPT) 29 10 - 60 unit/L LAB CHEMISTRY METHOD 06/02/2024 2:56 PM [facility] Alkaline Phosphatase 184(H) 42 - 121 unit/L LAB CHEMISTRY METHOD 06/02/2024 2:56 PM [facility] Total Protein 6.8 6.0 - 8.0 g/dL LAB CHEMISTRY METHOD 06/02/2024 2:56 PM [facility] Albumin 3.5 3.2 - 5.0 g/dL LAB CHEMISTRY METHOD 06/02/2024 2:56 PM EST [facility] Total Bilirubin 0.4 0.0 - 1.4 mg/dL LAB CHEMISTRY METHOD 06/02/2024 2:56 PM EST [facility] Blood Venous blood specimen / Unknown Venipuncture / Unknown 06/02/2024 10:05 AM EST 06/02/2024 10:05 AM EST Wale PRATT LAB BLOOD ORDERABLES Juliana l Result [facility] [address] [place] [address], [place] [phone] * Urine Albumin Creatinine Ratio (02/05/2024) [facility] Urine Albumin Creatinine Ratio ABSTRACTED [facility] Provider HEALTH MAINTENANCE Final Result * Depression Screening (01/22/2024) [facility] Depression Screening ABSTRACTED [facility] Provider HEALTH MAINTENANCE Final Result * Diabetes Eye Exam (09/19/2023) [facility] Diabetes: Annual Retina Eye Exam ABSTRACTED e [employer] Provider HEALTH MAINTENANCE Final Result * Diabetes Foot Exam (09/10/2023) [facility] Diabetes: Annual Foot Exam ABSTRACTED e [employer] Provider HEALTH MAINTENANCE Final Result * Cervical Cancer Screening: HPV (05/24/2022) [facility] Cervical Cancer Screening: HPV no interpretation , abstracted e [employer] Provider HEALTH MAINTENANCE Final Result * Colonoscopy (05/04/2020) [facility] Colonoscopy no interpretation , abstracted Anatomical Region Laterality Modality Other [facility] Provider HEALTH MAINTENANCE Final Result * Hepatitis C Screening (04/21/2015) [facility] Hepatitis C Screening ABSTRACTED us Historical Provider HEALTH MAINTENANCE Final Result from Last 3 Months or Most Recently Relevant to Health Maintenance Insurance MEDICARE MEDICAID - [place] Care Teams Boat Designer Relationship Specialty Start Date End Date Wale Shaver PA [address] [place] [id number] PCP - General Internal Medicine 07/05/20
--- OUTSIDE RECORDS SUMMARY | 2024-08-26 10:26 | XMS_ITS | Referral Summary ---
Author Organization [facility] Address [address] [place] [address] Care Team Providers Care Aquatic Facility Manager Name Role Phone SharshaunnaWale dubose Primary Care Provider [phone] Allergies Active Allergy Reactions Criticality Noted Date Comments Adalimumab Rash Low 12/17/2019 Adhesive Unknown Adhesive Tape-Silicones Unknown 04/02/2015 [place] Migraine Azithromycin Hives,Dermatitis 06/27/2018 Rash/Dermatitis Balsam [place]-Zinc Oxide Unknown 08/22/2019 Bee Venom Protein (Honey [...] Active INHALER, ASSIST DEVICES (AEROCHAMBER PLUS FLOW-VU [facility] Use as directed. Active amLODIPine (NORVASC) 5 mg tablet Take 5 mg by mouth daily. Active fexofenadine (ZORAN) 60 mg tablet Take 180 mg by mouth nightly. Active cholecalciferol, vitamin D3, 5,000 unit tablet Take 1 tablet by mouth. Active EPINEPHrine (EPIPEN) 0.3 mg/0.3 mL injection syringe Inject as directed. Active blood glucose diagnostoc (freestyle) [facility] FreeStyle Lancets Miscellaneous TEST twice a [...] (04/07/2021): Added automatically from request for surgery [id number] Tinea cruris 02/13/2017 Intertrigo 02/13/2017 Tinea corporis [...] and make any necessary changes in therapy. Awll cyst, left 03/22/2016 Elevated alkaline phosphatase level [...] Description 09/25/2024 10:30 AM EDT Office Visit [facility] [address] [place] [address] Armor Reconnaissance Vehicle Crewman: Kia Melgar MD [address] [place] [address] Procedures * Due to [place] law, this organization might not be sharing negative HIV tests. Procedure Name Priority Date/Time Associated Diagnosis Comments HEPATITIS C ANTIBODY W/REFLEX TO HCV RNA, QUANTITATIVE PCR Routine 05/06/2019 1:02 PM EDT Psoriatic arthropathy (CMS/HCC) (HCC) from Last 3 Months or Most Recently Relevant to Health Maintenance Results * Due to [place] law, this organization might not be sharing negative HIV tests. * Hepatitis C Antibody w/Reflex to HCV RNA, Quantitative PCR (05/06/2019 1:02 PM EDT) Hepatitis C Antibody NON-REACT VEENA NON-REACT VEENA 05/07/2019 1:19 AM EDT [facility] Signal To Cut-Off 0.05 <1.00 05/07/2019 1:19 AM EDT [facility] Comment: HCV antibody was non-reactive. There is no laboratory evidence of HCV infection. In most cases, no further action is required. However, if recent HCV exposure is suspected, a test for HCV RNA (test code 64098) is suggested. For additional information please refer to http://education.Zova/faq/BTF09r4 (This link is being provided for informational/ educational purposes only.) Blood specimen (specimen) Structure of peripheral vein / Unknown Venipuncture / Unknown 05/06/2019 1:02 PM EDT 05/06/2019 1:35 PM EDT Glenny BOOOUGH - 05/07/2019 1:19 AM EDT [facility] Received Date: us Ronald Baldwin MD LAB BLOOD ORDERABLES Final Resul t [facility] [address] [facility] [address]rd Floor, [place] [address], [place] [phone] [facility] [address] [facility] [address], [place] [address], [place] [phone] from Last 3 Months or Most Recently Relevant to Health Maintenance Insurance [facility] MEDICARE Care Teams Aquatic Facility Manager Relationship Specialty Start Date End Date Wale Shaver PCP - General Internal Medicine 09/24/20
--- OUTSIDE RECORDS SUMMARY | 2024-08-26 10:26 | XMS_ITS | Patient Health Record ---
Author Organization [facility] Address [address] [place] [address] Care Team Providers Care Flour Broker Name Role Phone ELOISA SANCHEZ PA-C Primary Care Provider Un available Jaxson Dias Jr Unavailable ALLERGIES Allergen (clinical drug ingredient) Drug/Non Drug [...] 200 MG as directed Subcutaneous Active Nystatin 200970 UNIT/GM APPLY TO AFFECTE D AREA TWICE [...] Notes Problem Rectal bleeding (K62.5) Active confirmed 11419016 Problem Gastro-esophageal reflux disease without esophagitis (K21.9) Active confirmed 359999423 Problem Elevated LFTs (R79.89) Active confirmed 448323703 Problem Gastroesophageal reflux disease without esophagitis (K21.9) Active confirmed 536008680 Problem Abnormal liver function tests (R79.89) Active confirmed 345713636 Problem Abnormal LFTs (R94.5) Active confirmed 605317046 PLAN OF TREATMENT Pending Test Test Name [...] Start Date Coverage End Date [place] OF [place] [address] [place] [address] [phone] [id number] DOC RICHARDS Self - patient is the insured MEDICAID OF [facility] [address] [place] [phone] [id number] DOC RICHARDS Self - patient is the [...]
[2024-08-29 15:03] LABS: TS Negative Control Passed; TS Panel A 0; TS Panel B 2; TS Positive Control Passed; TSpotTB Negative (Negative)
== END 2024-08-26 09:19 | disposition home or self-care (01) ==
LOC: HO.HMGCLDS 09:18
PROVIDERS: PCP Physician Assistant Medical; Visit Provider Internal Medicine Rheumatology
DX: Z79.899 Other long term (current) drug therapy (principal)
CPT/HCPCS: 36415; 86481

== ENCOUNTER 2024-09-03 12:38 | Outpatient (REF) | payer MEDICARE, MEDICAID, SELFPAY ==
--- OUTSIDE RECORDS SUMMARY | 2024-09-03 12:56 | XMS_ITS | Encounter Summary ---
Author Organization [facility] Address [address] [place] [address] Care Team Providers Care Shoe Parts Caser Name Role Phone Wale Shaver Primary Care Provider [phone] Encounter Details Date Type Department Care Team (Latest Contact Info) Description 07/10/2017 Zayo Message [facility] [address] [place] [address] Policeman: Lisa Chau MD [address] [place] [address] RE: Visit Follow-Up Question Social History Tobacco [...] I talked to the kind people at [facility] they are working on getting [...] Description 09/25/2024 10:30 AM EDT Office Visit [facility] [address] [place] [address] Policeman: Kia Melgar MD [address] [place] [address] documented as of this encounter Visit Diagnoses Not on filedocumented in this encounter Care Teams Shoe Parts Caser Relationship Specialty Start Date End Date Wale Shaver PCP - General Internal Medicine 09/24/20 documented as of this encounter
--- OUTSIDE RECORDS SUMMARY | 2024-09-03 12:56 | XMS_ITS | Clinical Summary ---
Author Organization [facility] Address [address] [place] [address] Care Team Providers Care Plug Maker Name Role Phone Wale Shaver Primary Care Provider [phone] Allergies Active Allergy Reactions Criticality Noted Date [...] triamcinolone (NASACORT) 55 mcg nasal inhaler 1 [place] by Nasal route 2 times daily as [...] the skin. 04/19/20 22 Active FREESTYLE LANCETS [facility] Use to test blood sugars BID 01/25/20 [...] time each day. 02/06/20 24 025 Discontinued Active Problems Problem Noted Date Diagnosed Date [...] (04/24/2024): Onset 2013. RF and CCP negative. 2015-15: No response to hydroxychloroquine even with the addition of sulfasalazine. 2016: Methotrexate started. Humira was added but no improvement. 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 Migraine 03/29/2009 Encounters Date Type Department Care Team Description 07/23/2024 8:00 AM EST Office Visit Adult Medicine [address] [phone] Wale Shaver PA Osteomyelitis, unspecified site, unspecified type ([facility]/HCC) (Primary Dx); Type 2 diabetes mellitus with microalbuminuria, without long-term current use of insulin ([facility]); Pure hypercholesterolemi a; Psoriatic arthritis ([facility]/HCC) 07/18/2024 Telephone Adult Medicine [address] [phone] Wale Shaver, PA Appointment 07/18/2024 Telephone Adult Medicine [address] [phone] Aliya Emerson LPN Fitting for DME (Dswo form for lancets) 07/08/2024 Telephone Adult Medicine [address] [phone] Wale Shaver PA Fitting for DME 06/10/2024 Telephone Adult Medicine [address] [phone] Gabriela Funes RN 06/04/2024 2:07 PM EST - 06/04/2024 11:59 PM EST Hospital Encounter Radiology Department - [address] [phone] Encounter for screening mammogram for malignant neoplasm of breast; Chilblains, sequela; Elevated alkaline phosphatase level; Fibromyalgia; Gastroesophageal reflux disease without esophagitis; Other migraine without status migrainosus, not intractable; Psoriasis; Psoriatic arthritis (CMS/HCC); Pure hypercholesterolemi a; Type 2 diabetes mellitus with microalbuminuria, without long-term current use of insulin (CMS/HCC); Subclinical hypothyroidism; Morbid obesity with BMI of 60.0-69.9, adult ([facility]); Rheumatoid arthritis, involving unspecified site, unspecified whether rheumatoid factor present ([facility]/HCC); Facial swelling Discharge Disposition: Home or Self Care 06/04/2024 9:00 AM EST Office Visit Adult Medicine [address] [phone] Wale Shaver PA Type 2 diabetes mellitus with microalbuminuria, without long-term current use of insulin ([facility]) (Primary Dx); Encounter for screening mammogram for malignant neoplasm of breast; Chilblains, sequela; Elevated alkaline phosphatase level; Fibromyalgia; Gastroesophageal reflux disease without esophagitis; Other migraine without status migrainosus, not intractable; Psoriasis; Psoriatic arthritis (CMS/HCC); Pure hypercholesterolemi a; Subclinical hypothyroidism; Morbid obesity with BMI of 60.0-69.9, adult ([facility]); Rheumatoid arthritis, involving unspecified site, unspecified whether rheumatoid factor present ([facility]); Facial swelling from Last 3 Months Immunizations [...] 6mo and older 04/25/2019,04/12/2019,04/06/2018,03/16,04/04/2017,03/17/2016 Influenza, Unspecified 04/11/2021,04/25/2019 Fed Playbook SARS-CoV-2 COVID-19, mRNA, LNP-S, preservative free 04/15/2021,02/03/2021,01/12/2021 [...] HYSTERECTOMY PROCEDURE:HYSTERECTOMY KNEE ARTHROSCOPY 2007 Right PROCEDURE: [place] ARTHROSCOPY KNEE DIAGNOSTIC W/WO SYNOVIAL BX SPX; [...] dr. stevens UPPER GASTROINTESTINAL ENDOSCOPY 05/04/2020 PROCEDURE: [place] UPPER GI ENDOSCOPY PERFORMED; COMMENT: gastritis - dr. stevens Medical History Medical History Date Comments Hypertension DX:Hypertension Rheumatoid arthritis ([facility]/HCC) D X:Rheumatoid arthritis ([facility]) Fibromyalgia DX:Fibromyalgia GERD (gastroesophageal reflux disease) DX:GERD (gastroesophageal reflux disease) Asthma DX:Asthma Rheumatoid arthritis ([facility]) D X:Rheumatoid arthritis ([facility]) Morbid obesity with BMI of 5 0.0-59.9, adult ([facility]) 09/07/2005 DX:Morbid obesity with BMI o f 50.0-59.9, adult ([facility]) Psoriasis 08/10/2017 DX:Psoriasis Migraine 03/29/2009 DX:Migraine 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 DX:Scha mberg's capillaritis Type 2 diabetes mellitus wit hout complications ([facility]) 08/01/2017 DX:Type 2 diabetes mellitus without complications ([facility]) Raynaud disease 04/02/2015 DX:Raynaud disea se; COMMENT: On amlodipine Osteoarthritis 04/02/2015 DX:Osteoarthriti s; COMMENT: Spine, knee RA (rheumatoid arthritis) ([facility]) 05/11/2015 DX:RA (rheumatoid arthritis) ([facility]); COMMENT: Seronegative with high markers of [...] 8:45 AM EDT Office Visit Adult Medicine [facility] [address] [place] [address] Wale Shaver PA [address] [place] [address] Health Maintenance Due Date Last Done Comments [...] status migrainosus, not intractable Psoriasis Psoriatic arthritis ([facility]/HCC) Pure hypercholesterolemi a Type 2 diabetes mellitus with microalbuminuria, without long-term current use of insulin ([facility]) Subclinical hypothyroidism Morbid obesity with BMI of 60.0-69.9, adult ([facility]) Rheumatoid arthritis, involving unspecified site, unspecified whether rheumatoid factor present ([facility]) Facial swelling COMPREHENSIVE METABOLIC PANEL Routine 06/02/2024 10:05 AM EST Gastroesophageal reflux disease without esophagitis Psoriatic arthritis ([facility]/HCC) Hypokalemia Pure hypercholesterolemi a Type 2 diabetes mellitus with microalbuminuria, without long-term current use of insulin ([facility]) Thyroid nodule Subclinical hypothyroidism Morbid obesity with BMI of 60.0-69.9, adult ([facility]) Fibromyalgia HEMOGLOBIN A1C Routine 06/02/2024 10:05 AM EST Gastroesophageal reflux disease without esophagitis Psoriatic arthritis ([facility]/HCC) Hypokalemia Pure hypercholesterolemi a Type 2 diabetes mellitus with microalbuminuria, without long-term current use of insulin ([facility]) Thyroid nodule Subclinical hypothyroidism Morbid obesity with BMI of 60.0-69.9, adult ([facility]) Fibromyalgia LIPID PANEL WITH REFLEX TO DIRECT LDL Routine 06/02/2024 10:05 AM EST Gastroesophageal reflux disease without esophagitis Psoriatic arthritis (CMS/HCC) Hypokalemia Pure hypercholesterolemi a Type 2 diabetes mellitus with microalbuminuria, without long-term current use of insulin (CMS/HCC) Thyroid nodule Subclinical hypothyroidism Morbid obesity with BMI of 60.0-69.9, adult (CMS/HCC) Fibromyalgia URINE ALBUMIN CREATININE RATIO Routine 02/05/2024 HM DEPRESSION SCREENING Routine 01/22/2024 DIABETES EYE EXAM [...] Signed Date: 06/06/2024 09:54 ET Workstation ID: [id number] Transcribed By: Self Edit Transcribed Date: 06/04/2024 [...] Signed Date: 06/06/2024 09:54 ET Workstation ID: [id number] Transcribed By: Self Edit Transcribed Date: 06/04/2024 23:56 ET Wale PRATT IMG MRI PROCEDURES Final Result * Lipid panel with reflex to direct LDL (06/02/2024 10:05 AM EST) Cholesterol 184 0 - 200 mg/dL LAB CHEMISTRY METHOD 06/02/2024 2:57 PM EST [facility] Triglycerides 128 0 - 150 mg/dL LAB CHEMISTRY METHOD 06/02/2024 2:57 PM EST [facility] HDL 85 >=40 mg/dL LAB CHEMISTRY METHOD 06/02/2024 2:57 PM EST [facility] LDL Calculated 73 0 - 100 mg/dL LAB CHEMISTRY METHOD 06/02/2024 2:57 PM EST [facility] VLDL Cholesterol Alexander 25.6 mg/dL LAB CHEMISTRY METHOD 06/02/2024 2:57 PM EST [facility] Non HDL Chol. (LDL+VLDL) 99 <145 mg/dL LAB CHEMISTRY METHOD 06/02/2024 2:57 PM EST [facility] Chol/HDL Ratio 2.2 0.0 - 4.4 LAB CHEMISTRY METHOD 06/02/2024 2:57 PM [facility] Blood Venous blood specimen / Unknown Venipuncture / Unknown 06/02/2024 10:05 AM EST 06/02/2024 10:05 AM EST Wale PRATT LAB BLOOD ORDERABLES Juliana l Result [facility] [address] [place] [address], [place] [phone] * (ABNORMAL) Hemoglobin A1c (06/02/2024 10:05 AM EST) Pathologist [facility] Hemoglobin A1C 12.0(H) <6.5 % LAB CHEMISTRY METHOD 06/03/2024 7:42 PM EST [facility] Mean Bld Glu Estim. 298 mg/dL LAB CHEMISTRY METHOD 06/03/2024 7:42 PM [facility] Blood Venous blood specimen / Unknown Venipuncture / Unknown 06/02/2024 10:05 AM EST 06/02/2024 10:05 AM EST Wale PRATT LAB BLOOD ORDERABLES Juliana l Result [facility] [address] [place] [address], [place] [phone] * (ABNORMAL) Comprehensive metabolic panel (06/02/2024 10:05 AM EST) [facility] Sodium 140 133 - 145 mmol/L LAB CHEMISTRY METHOD 06/02/2024 2:56 PM [facility] Potassium 3.9 3.5 - 5.5 mmol/L LAB CHEMISTRY METHOD 06/02/2024 2:56 PM [facility] Chloride 105 96 - 110 mmol/L LAB CHEMISTRY METHOD 06/02/2024 2:56 PM [facility] CO2 26 21 - 32 mmol/L LAB CHEMISTRY METHOD 06/02/2024 2:56 PM [facility] Anion Gap 9 3 - 11 LAB CHEMISTRY METHOD 06/02/2024 2:56 PM [facility] Glucose 261(H) 70 - 100 mg/dL LAB CHEMISTRY METHOD 06/02/2024 2:56 PM [facility] BUN 10 5 - 25 mg/dL LAB CHEMISTRY METHOD 06/02/2024 2:56 PM [facility] Creatinine 0.66 0.50 - 1.10 mg/dL LAB CHEMISTRY METHOD 06/02/2024 2:56 PM [facility] eGFR 107 >=60 mL/min/1. 73m2 LAB CHEMISTRY METHOD 06/02/2024 2:56 PM [facility] Comment:Calculation based on the??Chronic Kidney Disease Epidemiology Collaboration (CKD-EPI) equation refit??without adjustment for race. BUN/Creatinine Ratio 15.2 LAB CHEMISTRY METHOD 06/02/2024 2:56 PM [facility] Calcium 9.4 8.5 - 10.5 mg/dL LAB CHEMISTRY METHOD 06/02/2024 2:56 PM [facility] AST (SGOT) 18 10 - 42 unit/L LAB CHEMISTRY METHOD 06/02/2024 2:56 PM [facility] ALT (SGPT) 29 10 - 60 unit/L LAB CHEMISTRY METHOD 06/02/2024 2:56 PM [facility] Alkaline Phosphatase 184(H) 42 - 121 unit/L LAB CHEMISTRY METHOD 06/02/2024 2:56 PM [facility] Total Protein 6.8 6.0 - 8.0 g/dL LAB CHEMISTRY METHOD 06/02/2024 2:56 PM [facility] Albumin 3.5 3.2 - 5.0 g/dL LAB CHEMISTRY METHOD 06/02/2024 2:56 PM [facility] Total Bilirubin 0.4 0.0 - 1.4 mg/dL LAB CHEMISTRY METHOD 06/02/2024 2:56 PM [facility] Blood Venous blood specimen / Unknown Venipuncture / Unknown 06/02/2024 10:05 AM EST 06/02/2024 10:05 AM EST Wale PRATT LAB BLOOD ORDERABLES Juliana l Result [facility] [address] [place] [address], * Urine Albumin Creatinine Ratio (02/05/2024) [facility] Urine Albumin Creatinine Ratio ABSTRACTED Historical Provider HEALTH MAINTENANCE Final Result * Depression Screening (01/22/2024) [facility] Depression Screening ABSTRACTED Historical Provider HEALTH MAINTENANCE Final Result * Diabetes Eye Exam (09/19/2023) [facility] Diabetes: Annual Retina Eye Exam ABSTRACTED Historical Provider HEALTH MAINTENANCE Final Result * Diabetes Foot Exam (09/10/2023) [facility] Diabetes: Annual Foot Exam ABSTRACTED [facility] Provider HEALTH MAINTENANCE Final Result * Cervical Cancer Screening: HPV (05/24/2022) [facility] Cervical Cancer Screening: HPV no interpretation , abstracted [facility] Provider HEALTH MAINTENANCE Final Result * Colonoscopy (05/04/2020) [facility] Colonoscopy no interpretation , abstracted Anatomical Region Laterality Modality Other [facility] Provider HEALTH MAINTENANCE Final Result * Hepatitis C Screening (04/21/2015) [facility] Hepatitis C Screening ABSTRACTED [facility] Provider HEALTH MAINTENANCE Final Result from Last 3 Months or Most Recently Relevant to Health Maintenance Insurance MEDICARE MEDICAID - [place] Care Teams Plug Maker Relationship Specialty Start Date End Date Wale Shaver PA [address] [place] [address] PCP - General Internal Medicine 07/05/20
--- OUTSIDE RECORDS SUMMARY | 2024-09-03 12:56 | XMS_ITS | Encounter Summary ---
Author Organization [facility] Address [facility] [place] [address] Care Team Providers Care Manager Physical Name Role Phone Sudheer Bermudez MD Primary Care Provider + [phone] Prince Goodrich Primary Care Provider [facility] Sudheer Bermudez MD Primary Care Provider + [phone] Noe Jones MD Primary Care Provider [phone] Wale Shaver PA-C Primary Care Provider [phone] Encounter Details Date Type Department Care Team Description 04/16/2018 Telephone Dermatology - [address] [phone] Angelita Coburn PA-C Social History Tobacco Use Types Packs/Day Years Used Date Smoking Tobacco: Never Smokeless Tobacco: Never Alcohol Use Standard Drinks/Week Comments No 0 (1 standard drink = 0.6 oz pur e alcohol) Sex Assigned at Date Recorded Not on file Job Start Date Occupation Industry Not on file Not on file Not on file documented as of this encounter Plan of Treatment Not on file documented as of this encounter Visit Diagnoses Not on filedocumented in this encounter Additional Health Concerns Infection Onset Date Last Indicated Resolved Time COVID-19 07/19/2022 07/20/2022 08/14/2023 11:4 2 AM EST documented as of this encounter Care Teams Manager Physical Relationship Specialty Start Date End Date Sudheer Bermudez MD [address] [place] [address] PCP - General Internal Medicine 09/17/17 09/16/19 Prince Goodrich [address] [place] [address] PCP - General Internal Medicine 09/17/19 03/17/20 Sudheer Bermudez MD [address] [place] [address] PCP - General Internal Medicine 03/18/20 06/24/20 Noe Jones MD [address] [place] [address] PCP - General Internal Medicine 06/25/20 07/04/20 Wale Shaver PA-C [address] [place] [address] PCP - General Internal Medicine 07/05/20 documented as of this encounter
--- OUTSIDE RECORDS SUMMARY | 2024-09-03 12:56 | XMS_ITS | Encounter Summary ---
Author Organization [facility] Address [address] [place] [address] Care Team Providers Care Management Recruiter Name Role Phone Sudheer Bermudez MD Primary Care Provider + [phone] Prince Goodrich Primary Care Provider [facility] Sudheer Bermudez MD Primary Care Provider + [phone] Noe Jones MD Primary Care Provider [phone] Wael Shaver PA-C Primary Care Provider [phone] Encounter Details Date Type Department Care Team Description 02/25/2019 Reservoir Engineering Advisor Report Medical Records [address] [place] [address] [facility] Social History Tobacco Use Types Packs/Day Years [...] documented as of this encounter Care Teams Management Recruiter Relationship Specialty Start Date End Date Sudheer Bermudez MD [address] [place] [address] PCP - General Internal Medicine 09/17/17 09/16/19 Prince Goodrich [address] [place] [address] PCP - General Internal Medicine 09/17/19 03/17/20 Sudheer Bermudez MD [address] [place] [address] PCP - General Internal Medicine 03/18/20 06/24/20 Noe Jones MD [address] [place] [address] PCP - General Internal Medicine 06/25/20 07/04/20 Wale Shaver PA-C [address] [place] [address] PCP - General Internal Medicine 07/05/20 documented as of this encounter
--- OUTSIDE RECORDS SUMMARY | 2024-09-03 12:56 | XMS_ITS | Encounter Summary ---
Author Organization [facility] Address [address] [place] [address] Care Team Providers Care Residential Field Manager Name Role Phone Sudheer Bermudez MD Primary Care Provider + [phone] Prince Goodrich Primary Care Provider [facility] Sudheer Bermudez MD Primary Care Provider + [phone] Noe Jones MD Primary Care Provider + [phone] Wale Shaver PA-C Primary Care Provider [phone] Encounter Details Date Type Department Care Team Description 05/01/2018 Instrument Repair Supervisor Report Medical Records [address] [place] [address] Abstract, Provider Social History Tobacco Use Types Packs/Day Years [...] documented as of this encounter Care Teams Residential Field Manager Relationship Specialty Start Date End Date Sudheer Bermudez MD [address] [place] [address] [phone] PCP - General Internal Medicine 09/17/17 09/16/19 Prince Goodrich [address] [place] [address] PCP - General Internal Medicine 09/17/19 03/17/20 Sudheer Bermudez MD [address] [place] [address] PCP - General Internal Medicine 03/18/20 06/24/20 Noe Jones MD [address] [place] [address] PCP - General Internal Medicine 06/25/20 07/04/20 Wale Shaver PA-C [address] [place] [address] PCP - General Internal Medicine 07/05/20 documented as of this encounter
--- OUTSIDE RECORDS SUMMARY | 2024-09-03 12:56 | XMS_ITS | Encounter Summary ---
Author Organization [facility] Address [address] [place] [address] Care Team Providers Care Ball Worker Name Role Phone Wale Shaver Primary Care Provider [phone] Encounter Details Date Type Department Care Team (Latest Contact Info) Description 08/21/2017 PROSimityhart Message [facility] [address] [place] [address] Soda Tester: Lisa Chau MD [address] [place] [address] [phone] RE: Test Results Question Social History Tobacco [...] Description 09/25/2024 10:30 AM EDT Office Visit [facility] [address] [place] [address] Soda Tester: Kia Melgar MD [address] [place] [address] [phone] documented as of this encounter Visit Diagnoses Not on filedocumented in this encounter Care Teams Ball Worker Relationship Specialty Start Date End Date Wale Shaver PCP - General Internal Medicine 09/24/20 documented as of this encounter
--- OUTSIDE RECORDS SUMMARY | 2024-09-03 12:56 | XMS_ITS | Encounter Summary ---
Author Organization [facility] Address [facility] [place] [address] Care Team Providers Care Field Hand Name Role Phone Wale Shaver PA-C Primary Care Provider [phone] Encounter Details Date Type Department Care Team Description 05/02/2023 Clinical Reimbursement Specialist Report Medical Records [address] [place] [address] Liang To MD Social History Tobacco Use Types Packs/Day Years [...] documented as of this encounter Care Teams Field Hand Relationship Specialty Start Date End Date Wale Shaver PA-C [address] [place] [address] PCP - General Internal Medicine 07/05/20 documented as of this encounter
--- OUTSIDE RECORDS SUMMARY | 2024-09-03 12:56 | XMS_ITS | Encounter Summary ---
Author Organization [facility] Address [facility] [place] [address] Care Team Providers Care Buttermilk Drier Operator Name Role Phone Wale Shaver PA-C Primary Care Provider [phone] Reason for Visit * Reason Onset Date Comments Provider Call Back 11/02/2020 Encounter Details Date Type Department Care Team Description 11/02/2020 Telephone Adult Medicine [facility] [address] [place] [address] Wale Shaver PA-C [address] [place] [address] Provider Call Back Social History Tobacco Use Types Packs/Day Years Used Date Smoking Tobacco: Never Smokeless Tobacco: Never Alcohol Use Standard Drinks/Week Comments No 0 (1 standard drink = 0.6 oz pur e alcohol) Sex Assigned at Date Recorded Not on file Job Start Date Occupation Industry Not on file Not on file Not on file COVID-19 Exposure Response Date Recorded In the last month, have you been in contact with someone who was confirmed or suspected to have Coronavirus / COVID-19? Unable to assess 11/05/2020 2:18 PM EDT documented as of this encounter Miscellaneous Notes * Telephone Encounter - Wale Shaver PA-C - 11/02/2020 1:43 PM EDT Noted. * Telephone Encounter - Tish Boateng M.A. - 11/02/2020 1:22 PM EDT Pt sts she had some outside labs done by Dr Dias who monitors her liver ct, WBC came back very low, provider advised her to stop all arthritis meds, [facility] will be completing a second round of labs and all results will be faxed to Wale for appt on 11/08/2020 . Pt sts she will wait until all results have been sent to Wale to discuss on Sunday * Telephone Encounter - Ammy Vargas - 11/02/2020 9:27 AM EDT Caller requesting call back from provider: Is the caller the patient? YES If caller is not the patient, what is the callers name? N/A Callers relationship to patient? N/A If person calling is not the patient themselves, is there a verbal release in FYI or permanent comments for this person: NO Reason for call back: Patient would like a sooner appt then 11/08 to go over blood work. [phone] Caller offered to speak with the nurse for assistance: yes Response: Patient offered to speak with nurse for assistance and patient agreed. Message forwarded to nurse. documented in this encounter Plan of Treatment Not on file documented as of this encounter Visit Diagnoses Not on filedocumented in this encounter Additional Health Concerns Infection Onset Date Last Indicated Resolved Time COVID-19 07/19/2022 07/20/2022 08/14/2023 11:4 2 AM EST documented as of this encounter Care Teams Buttermilk Drier Operator Relationship Specialty Start Date End Date Wale Shaver PA-C [address] [place] [address] PCP - General Internal Medicine 07/05/20 documented as of this encounter
--- OUTSIDE RECORDS SUMMARY | 2024-09-03 12:56 | XMS_ITS | Encounter Summary ---
Author Organization [facility] Address [address] [place] [address] Care Team Providers Care Aeronautical Engineering Technologist Name Role Phone Sudheer Bermudez MD Primary Care Provider + [phone] Prince Goodrich Primary Care Provider [facility] Sudheer Bermudez MD Primary Care Provider + [phone] Noe Jones MD Primary Care Provider + [phone] Wale Shaver PA-C Primary Care Provider [phone] Encounter Details Date Type Department Care Team Description 08/08/2018 PNO Controlled Substance Contract Medical Records [address] [place] [address] Abstract, Provider Social History Tobacco Use Types [...] documented as of this encounter Care Teams Aeronautical Engineering Technologist Relationship Specialty Start Date End Date Sudheer Bermudez MD [address] [place] [address] PCP - General Internal Medicine 09/17/17 09/16/19 Prince Goodrich [address] [place] [address] PCP - General Internal Medicine 09/17/19 03/17/20 Sudheer Bermudez MD [address] [place] [address] PCP - General Internal Medicine 03/18/20 06/24/20 Noe Jones MD [address] [place] [address] PCP - General Internal Medicine 06/25/20 07/04/20 Wale Shaver PA-C [address] [place] [address] PCP - General Internal Medicine 07/05/20 documented as of this encounter
--- OUTSIDE RECORDS SUMMARY | 2024-09-03 12:56 | XMS_ITS | Encounter Summary ---
Author Organization [facility] Address [facility] [place] [address] Care Team Providers Care Sports Specialist Name Role Phone Wale Shaver PA-C Primary Care Provider [phone] Reason for Visit * Reason Onset Date Comments medication problems 09/24/2023 Encounter Details Date Type Department Care Team Description 09/24/2023 Telephone Adult Medicine [address] [address] Wale Shaver PA-C [address] [place] [address] medication problems Social History Tobacco Use Types Packs/Day Years Used Date Smoking Tobacco: Never Smokeless Tobacco: Never Alcohol Use Standard Drinks/Week Comments No 0 (1 standard drink = 0.6 oz pur e alcohol) Sex Assigned at Date Recorded Not on file Job Start Date Occupation Industry Not on file Not on file Not on file documented as of this encounter Miscellaneous Notes * Telephone Encounter - Tg Sotomayor - 10/01/2023 1:32 PM EDT Patient made aware * Telephone Encounter - Wale Shaver PA-C - 10/01/2023 12:29 PM EDT Okay may be I will try Nikki in that case * Telephone Encounter - Gail Barnes M.A. - 10/01/2023 12:00 PM EDT Not for weight loss Med must be used for diabetes dx (ozempic, victoza, mounjaro) Any meds like wegovy, saxenda, zepbound are a plan exclussion because those are only approved for weight loss Gail Andrade Auth Dep Ext [phone] * Telephone Encounter - Wale Shaver PA-C - 10/01/2023 11:33 AM EDT Ok she has tried some other GLP 1 meds, would any others be covered * Telephone Encounter - Gail Barnes M.A. - 10/01/2023 11:28 AM EDT Insurance only approves wegovy to treat obesity They wont approve wegovy to treat diabetes Gail Andrade Auth Dep Ext 5106 * Telephone Encounter - Wale Shaver PA-C - 09/29/2023 9:48 PM EDT Patient does have diabetes as well which has been poorly controlled * Telephone Encounter - Gail Barnes M.A. - 09/28/2023 9:39 AM EDT They havent received auth because it was denied Drugs, when used for anorexia, weight loss or weight gain, are excluded from coverage under Medicare Rules Gail Andrade Auth Dep Ext [phone] * Telephone Encounter - Jamie Pandya - 09/28/2023 8:53 AM EDT Lynsey from [facility] calling on the status as they have yet to receive this prior auth for the medication. Call back number is [phone] * Telephone Encounter - Gail Barnes M.A. - 09/26/2023 1:52 PM EDT Auth sent with [facility] of care Gail Barnes Prior Auth Dep Ext [id number] * Telephone Encounter - Rina Slade M.A. - 09/26/2023 12:13 PM EDT Prior Auth request from [facility] specialty pharmacy faxed to PA department. Mychart sent to advise the patient in separate encounter. * Telephone Encounter - Rina Slade M.A. - 09/26/2023 11:22 AM EDT Are you able to process, we have yet to receive faxed Prior Auth request, thank you. * Telephone Encounter - Jackeline Chadwick M.A. - 09/24/2023 4:01 PM EDT Spoke with [facility]. It needs to be for the 1 mg/0.5 ml inject 1 mg once weekly and this requires a prior auth. Waiting for prior auth request to be sent. * Telephone Encounter - Fariha Hedrick - 09/24/2023 3:14 PM EDT Who is calling? Aniyah at [facility] Name of the medication wegovy What is the specific problem or interaction? Strength and Directions do not coincide Please clarify If the patient is having a problem with taking the med - how long has the problem been going on? documented in this encounter Plan of Treatment Not on file documented as of this encounter Visit Diagnoses Not on filedocumented in this encounter Care Teams Sports Specialist Relationship Specialty Start Date End Date Wale Shaver PA-C [address] [place] [address] PCP - General Internal Medicine 07/05/20 documented as of this encounter
--- OUTSIDE RECORDS SUMMARY | 2024-09-03 12:56 | XMS_ITS | Encounter Summary ---
Author Organization [facility] Address [facility] [place] [address] Care Team Providers Care Metallurgist Process Name Role Phone Wale Shaver PA-C Primary Care Provider [phone] Encounter Details Date Type Department Care Team Description 12/04/2023 Account Information Clerk Report Medical Records [address] [place] [address] Social History Tobacco Use Types Packs/Day Years [...] on filedocumented in this encounter Care Teams Metallurgist Process Relationship Specialty Start Date End Date Wale Shaver PA-C [address] [place], [place] [phone] PCP - General Internal Medicine 07/05/20 documented as of this encounter
--- OUTSIDE RECORDS SUMMARY | 2024-09-03 12:56 | XMS_ITS | Encounter Summary ---
Author Organization [facility] Address [facility] [place] [address] Care Team Providers Care Processor Helper Name Role Phone Wale Shaver PA-C Primary Care Provider [phone] Encounter Details Date Type Department Care Team Description 12/07/2020 Utility Operator Yarn Report Medical Records [address] [place] [address] Mario Kat MD Social History Tobacco Use Types Packs/Day [...] or suspected to have Coronavirus / COVID-19? No / Unsure 12/08/2020 10:56 AM EDT documented as of this encounter Plan of Treatment Not on file documented as of this encounter Visit Diagnoses Not on filedocumented in this encounter Additional Health Concerns Infection Onset Date Last Indicated Resolved Time COVID-19 07/19/2022 07/20/2022 08/14/2023 11:4 2 AM EST documented as of this encounter Care Teams Processor Helper Relationship Specialty Start Date End Date Wale Shaver PA-C [address] [place], [place] [phone] PCP - General Internal Medicine 07/05/20 documented as of this encounter
--- OUTSIDE RECORDS SUMMARY | 2024-09-03 12:56 | XMS_ITS | Encounter Summary ---
Author Organization [facility] Address [address] [place] [address] Care Team Providers Care Bankman Name Role Phone Wale Shaver Primary Care Provider [phone] Encounter Details Date Type Department Care Team (Latest Contact Info) Description 06/16/2017 Redkneet Message [facility] [address] [place] [address] Natural Sciences Manager: Lisa Chau MD [address] [place] [address] [phone] Prescription Question Social History Tobacco Use Types [...] Description 09/25/2024 10:30 AM EDT Office Visit [facility] [address] [place] [address] Natural Sciences Manager: Kia Melgra MD [address] [place] [address] [phone] documented as of this encounter Visit Diagnoses Not on filedocumented in this encounter Care Teams Bankman Relationship Specialty Start Date End Date Wale Shaver PCP - General Internal Medicine 09/24/20 documented as of this encounter
--- OUTSIDE RECORDS SUMMARY | 2024-09-03 12:56 | XMS_ITS | Encounter Summary ---
Author Organization [facility] Address [address] [place] [address] Care Team Providers Care Teleprinter Name Role Phone Daniel Chew Primary Care Provider Ajay Rich MD Primary Care Provider Daniel Shabazz Primary Care Provider Gerry Craig MD Primary Care Provider [phone] Sudheer Bermudez MD Primary Care Provider + [phone] Prince Goodrich Primary Care Provider Unavaila Sudheer Hair MD Primary Care Provider + [phone] Noe Jones MD Primary Care Provider [phone] Wale Shaver PA-C Primary Care Provider [phone] Encounter Details Date Type Department Care Team Description 12/28/2014 Instructor Correspondence School Report Medical Records [address] [place] [phone] [place] [address] Social History Tobacco Use Types Packs/Day Years Used Date Smoking Tobacco: Never Alcohol Use Standard Drinks/Week Comments [...] documented as of this encounter Care Teams Teleprinter Relationship Specialty Start Date End Date Daniel Chew PCP - General Internal Medicine 09/08/14 03/07/15 Ajay Norton MD PCP - General Internal Medicine 03/08/15 05/10/15 Daniel Chew PCP - General Internal Medicine 05/11/15 06/26/17 Gerry Munoz MD [address] [place] [address] PCP - General Internal Medicine 06/27/17 09/16/17 Sudheer Bermudez MD [address] [place] [address] PCP - General Internal Medicine 09/17/17 09/16/19 Prince Goodrich [address] [place] [address] PCP - General Internal Medicine 09/17/19 03/17/20 Sudheer Bermudez MD [address] [place] [address] PCP - General Internal Medicine 03/18/20 06/24/20 Noe Jones MD [address] [place] [address] PCP - General Internal Medicine 06/25/20 07/04/20 Wale Shaver PA-C [address] [place] [address] PCP - General Internal Medicine 07/05/20 documented as of this encounter
--- OUTSIDE RECORDS SUMMARY | 2024-09-03 12:56 | XMS_ITS | Continuity of Care Document ---
Author Organization [facility] Address [address] [place] [address] Phone Care Team Providers Care Wholesale Account Manager Name Role Phone Vivek CHUA FACS RVT [...] Providers Copied on Encounter [facility] MD MICHAUD, [address] [place] [address] Dr De Leon [address] [address], [id number], tel:[phone] [facility] [place] No Information 3 Vivek Carrillo. [address] [place] [address], [place], [address], [place]. tel:[phone] Referring Provider: Wale Pacheco, [address] [place] [address], [address]. tel:[phone] [facility] MD MICHAUD, [address] [place] [address] Dr De Leon [address] [address], [id number], [place] tel:[phone] [facility] [place] Venous insufficiency (chronic) (peripheral)Pa in in right leg 3 Vivek Carrillo. [address] [place] [address], [address], [place]. tel:[phone] Referring Provider: Wale Pacheco, [address] [place] [address], [address]. tel:[phone] Office/Oupt E&M New Pt 30 Mins [facility] MD MICHAUD, [address] [place] [address] Dr De Leon [address] 1000I[place]hima [place], [id number], [place] tel:[phone] [facility] [place] Non-prs chronic ulcer oth prt right foot w unsp severityVenous insufficiency (chronic) (peripheral) 3 Vivek Carrillo. [address] [place] [address], [address], [place]. tel:[phone] Referring Provider: Wale Pacheco, [address] [place] [address], [place], [address]. tel:[phone] Family History Family Member Type Diagnosis Age At Onset No Information Payers Payer name Insurance type Covered constitution party ID Authoriza tion(s) Medicare GEREMIAS DONNELLY [id number] Medical Assistance GEREMIAS [id number] Social History Type Description Quantity Date Captured [...]
--- OUTSIDE RECORDS SUMMARY | 2024-09-03 12:56 | XMS_ITS | Encounter Summary ---
Author Organization [facility] Address [address] [place] [address] Care Team Providers Care Appraisal Specialist Name Role Phone Sudheer Bermudez MD Primary Care Provider + [phone] Prince Goodrich Primary Care Provider [facility] Sudheer Bermudez MD Primary Care Provider + [phone] Noe Jones MD Primary Care Provider [phone] Wale Shaver PA-C Primary Care Provider [phone] Encounter Details Date Type Department Care Team Description 12/30/2018 Release of Information Medical Records [address] [place] [address] Abstract, Provider Social History Tobacco Use Types [...] documented as of this encounter Care Teams Appraisal Specialist Relationship Specialty Start Date End Date Sudheer Bermudez MD [address] [place] [address] PCP - General Internal Medicine 09/17/17 09/16/19 Prince Goodrich [address] [place] [address] PCP - General Internal Medicine 09/17/19 03/17/20 Sudheer Bermudez MD [address] [place] [address] PCP - General Internal Medicine 03/18/20 06/24/20 Noe Jones MD [address] [place] [address] PCP - General Internal Medicine 06/25/20 07/04/20 Wale Shaver PA-C [address] [place] [address] PCP - General Internal Medicine 07/05/20 documented as of this encounter
--- OUTSIDE RECORDS SUMMARY | 2024-09-03 12:56 | XMS_ITS | Encounter Summary ---
Author Organization [facility] Address [facility] [place] [address] Care Team Providers Care Med Asst Name Role Phone Wale Shaver PA-C Primary Care Provider [phone] Encounter Details Date Type Department Care Team Description 11/08/2023 Pt. Non Urgent Medical Question [place] [address] Casie Davis PA-C [address] [place] [address] Social History Tobacco Use Types Packs/Day Years [...] encounter Miscellaneous Notes * Telephone Encounter - Nayely Ritchie - 11/08/2023 4:46 PM EDTFrom: Iva Cervantes To: Agatha Davis Sent: 11/08/2023 4:41 PM EDT Subject: Ozempic Good evening??? I talked to the pharmacy again today unfortunately they can not get mounjro at all [address] [place] ??? they said they sent paperwork to your office for a prior authorization on October 30 for ozempic can we attempt to get the insurance to try and approve it for diabetic use .. any assistance would be greatly appreciated Lara cervantes documented in this encounter Plan of Treatment Not on file documented as of this encounter Visit Diagnoses Not on filedocumented in this encounter Care Teams Med Asst Relationship Specialty Start Date End Date Wale Shaver PA-C [address] [place] [address] PCP - General Internal Medicine 07/05/20 documented as of this encounter
--- OUTSIDE RECORDS SUMMARY | 2024-09-03 12:56 | XMS_ITS | Encounter Summary ---
Author Organization [facility] Address [address] [place] [address] Care Team Providers Care Poultry Culler Name Role Phone Wale Shaver Primary Care Provider [phone] Encounter Details Date Type Department Care Team (Latest Contact Info) Description 05/04/2017 SD Motiongraphikst Message [facility] [address] [place] [address] Area Director Of Home Health Sales: Lisa Chau MD [address] [place] [address] Non-Urgent Medical Question Social History Tobacco Use [...] LPN - 05/10/2017 4:20 PM EDTFrom: Iva Cervanets To: Lisa Couch MD Sent: 05/04/2017 2:08 PM EDT Subject: Non-Urgent Medical Question When I come out the week of May 21 can I do my blood work at the same time. Thank you documented in this encounter Plan of Treatment Upcoming Encounters Date Type Department Care Team (Late st Contact Info) Description 09/25/2024 10:30 AM EDT Office Visit [facility] [address] [place] [address] Area Director Of Home Health Sales: Kia Melgar MD [address] [place] [address] documented as of this encounter Visit Diagnoses Not on filedocumented in this encounter Care Teams Poultry Culler Relationship Specialty Start Date End Date Wale Shaver PCP - General Internal Medicine 09/24/20 documented as of this encounter
--- OUTSIDE RECORDS SUMMARY | 2024-09-03 12:56 | XMS_ITS | Encounter Summary ---
Author Organization [facility] Address [address] [place] [address] Care Team Providers Care Felt Cutting Machine Operator Name Role Phone Wale Shaver Primary Care Provider [phone] Encounter Details Date Type Department Care Team (Latest Contact Info) Description 07/19/2017 Prestigoshart Message [facility] [address] [place] [address] Roadability Machine Operator: Lisa Chau MD [address] [place] [address] [phone] Prescription Question Social History Tobacco Use Types [...] Description 09/25/2024 10:30 AM EDT Office Visit [facility] [address] [place] [address] Roadability Machine Operator: Kia Melgar MD [address] [place] [address] [phone] documented as of this encounter Visit Diagnoses Not on filedocumented in this encounter Care Teams Felt Cutting Machine Operator Relationship Specialty Start Date End Date Wale Shaver PCP - General Internal Medicine 09/24/20 documented as of this encounter
--- OUTSIDE RECORDS SUMMARY | 2024-09-03 12:56 | XMS_ITS | Encounter Summary ---
Author Organization [facility] Address [address] [place] [address] Care Team Providers Care Ceramics Artist Name Role Phone Wale Shaver PA-C Primary Care Provider [phone] Reason for Visit * Reason Onset Date Comments VNA Call 02/07/2023 Encounter Details Date Type Department Care Team Description 02/07/2023 Telephone Adult Medicine [address] [address] Wale Shaver PA-C [address] [place] [address] VNA Call Social History Tobacco Use Types Packs/Day Years [...] encounter Miscellaneous Notes * Telephone Encounter - Torrey GoldsteinP.NSofia - 02/08/2023 11:30 AM EDT VO given * Telephone Encounter - Wale Shaver PA-C - 02/07/2023 1:53 PM EDT Okay for verbal order * Telephone Encounter - Gabriela Funes R.N. - 02/07/2023 1:34 PM EDT Please advise JAHAIRA 12/27/22 * Telephone Encounter - Jonel Cha - 02/07/2023 1:28 PM EDT VNA CALL Which VNA office is calling? [facility] Full name of caller: Trixie The caller is A nurse Is the caller at the patients home?: NO Reason for call: Orders for PT x1 a week for 8 weeks 3 PRNS Does caller need an urgent call back? NO Was CONTACT Telephone # obtained above?: YES Fax #: documented in this encounter Plan of Treatment Not on file documented as of this encounter Visit Diagnoses Not on filedocumented in this encounter Additional Health Concerns Infection Onset Date Last Indicated Resolved Time COVID-19 07/19/2022 07/20/2022 08/14/2023 11:4 2 AM EST documented as of this encounter Care Teams Ceramics Artist Relationship Specialty Start Date End Date Wale Shaver PA-C [address] [place] [address] PCP - General Internal Medicine 07/05/20 documented as of this encounter
--- OUTSIDE RECORDS SUMMARY | 2024-09-03 12:56 | XMS_ITS | Encounter Summary ---
Author Organization [facility] Address [facility] [place] [address] Care Team Providers Care Associate Music Professor Name Role Phone Huber, Pcp Primary Care Provider Daniel Rabago Primary Care Provider Ajay Rich MD Primary Care Provider Daniel Shabazz Primary Care Provider Gerry Craig MD Primary Care Provider [phone] Sudheer Bermudez MD Primary Care Provider + [phone] Prince Goodrich Primary Care Provider UnavailSudheer Leo MD Primary Care Provider + [phone] Noe Jones MD Primary Care Provider +[phone] Wale Shaver PA-C Primary Care Provider [phone] Encounter Details Date Type Department Care Team Description 10/03/2013 Salesperson Wigs Report Medical Records [address] [place] [address] Nancy Whaley Social History Tobacco Use Types Packs/Day Years [...] documented as of this encounter Care Teams Associate Music Professor Relationship Specialty Start Date End Date Community, Pcp PCP - General 11/14/09 09/07/14 Daniel Chew PCP - General Internal Medicine 09/08/14 03/07/15 Ajay Norton MD PCP - General Internal Medicine 03/08/15 05/10/15 Daniel Chew PCP - General Internal Medicine 05/11/15 06/26/17 Gerry Munoz MD [address] [place] [address] PCP - General Internal Medicine 06/27/17 09/16/17 Sudheer Bermudez MD [address] [place] [address] PCP - General Internal Medicine 09/17/17 09/16/19 Prince Goodrich [address] [place] [address] PCP - General Internal Medicine 09/17/19 03/17/20 Sudheer Bermudez MD [address] [place] [address] PCP - General Internal Medicine 03/18/20 06/24/20 Noe Jones MD [address] [place] [address] PCP - General Internal Medicine 06/25/20 07/04/20 Wale Shaver PA-C [address] [place] [address] PCP - General Internal Medicine 07/05/20 documented as of this encounter
--- OUTSIDE RECORDS SUMMARY | 2024-09-03 12:56 | XMS_ITS | Encounter Summary ---
Author Organization [facility] Address [address] [place] [address] Care Team Providers Care Ski Binding Fitter And Repairer Name Role Phone Wale Shaver PA-C Primary Care Provider [phone] Encounter Details Date Type Department Care Team Description 02/09/2023 Home Health Certification Medical Records [address] [place] [address] Social History Tobacco Use Types Packs/Day Years [...] documented as of this encounter Care Teams Ski Binding Fitter And Repairer Relationship Specialty Start Date End Date Wale Shaver PA-C [address] [place] [address] PCP - General Internal Medicine 07/05/20 documented as of this encounter
--- OUTSIDE RECORDS SUMMARY | 2024-09-03 12:56 | XMS_ITS | Encounter Summary ---
Author Organization [facility] Address [facility] [place] [address] Care Team Providers Care Packer Sausage And Wiener Name Role Phone Wale Shaver PA-C Primary Care Provider [phone] Encounter Details Date Type Department Care Team Description 11/11/2020 Pt. Non Urgent Medical Question Adult Medicine [address] [address] Wale Shaver PA-C [address] [place] [address] Social History Tobacco Use Types Packs/Day Years [...] have Coronavirus / COVID-19? Unable to assess 11/11/2020 10:09 AM EDT documented as of this encounter Miscellaneous Notes * Telephone Encounter - Agnes Wallace C.M.A - 11/12/2020 7:43 AM EDTFrom: Iva Morgan To: Vashti Shaver Sent: 11/11/2020 5:39 PM EDT Subject: Antibiotics never sent to pharmacy I had a virtual visit at 1 pm and a script for amoxicillin was supposed to be sent to the pharmacy??? I have checked the pharmacy several times nothing was sent in I called back at 3 pm an urgent message was supposed to be sent and I was supposed to get a call back and never did.. I???d appreciate a call back or the script actually being sent to the pharmacy Thank you Iva morgan [phone] documented in this encounter Plan of Treatment Not on file documented as of this encounter Visit Diagnoses Not on filedocumented in this encounter Additional Health Concerns Infection Onset Date Last Indicated Resolved Time COVID-19 07/19/2022 07/20/2022 08/14/2023 11:4 2 AM EST documented as of this encounter Care Teams Packer Sausage And Wiener Relationship Specialty Start Date End Date Wale Shaver PA-C [address] [place] [address] PCP - General Internal Medicine 07/05/20 documented as of this encounter
--- OUTSIDE RECORDS SUMMARY | 2024-09-03 12:56 | XMS_ITS | Encounter Summary ---
Author Organization [facility] Address [employer] [place] [address] Care Team Providers Care Front Desk Manager Name Role Phone Wale Shaver PA-C Primary Care Provider [phone] Encounter Details Date Type Department Care Team Description 02/07/2021 Business Doc Medical Records [address] [place] [address] Abstract, Provider Social History Tobacco Use Types [...] have Coronavirus / COVID-19? No / Unsure 02/01/2021 2:18 PM EDT documented as of this encounter Plan of Treatment Not on file documented as of this encounter Visit Diagnoses Not on filedocumented in this encounter Additional Health Concerns Infection Onset Date Last Indicated Resolved Time COVID-19 07/19/2022 07/20/2022 08/14/2023 11:4 2 AM EST documented as of this encounter Care Teams Front Desk Manager Relationship Specialty Start Date End Date Wale Shaver PA-C [address] [place] [address] PCP - General Internal Medicine 07/05/20 documented as of this encounter
--- OUTSIDE RECORDS SUMMARY | 2024-09-03 12:56 | XMS_ITS | Encounter Summary ---
Author Organization [facility] Address [address] [place] [address] Care Team Providers Care Public Information Coordinator Name Role Phone Sudheer Bermudez MD Primary Care Provider + [phone] Prince Goodrich Primary Care Provider [facility] Sudheer Bermudez MD Primary Care Provider + [phone] Noe Jones MD Primary Care Provider + [phone] Wale Shaver PA-C Primary Care Provider [phone] Encounter Details Date Type Department Care Team Description 05/11/2018 Release of Information Medical Records [address] [place] [address] Abstract, Provider Social History Tobacco Use Types [...] documented as of this encounter Care Teams Public Information Coordinator Relationship Specialty Start Date End Date Sudheer Bermudez MD [address] [place] [address] PCP - General Internal Medicine 09/17/17 09/16/19 Prince Goodrich [address] [place] [address] PCP - General Internal Medicine 09/17/19 03/17/20 Sudheer Bermudez MD [address] [place] [address] PCP - General Internal Medicine 03/18/20 06/24/20 Noe Jones MD [address] [place] [address] PCP - General Internal Medicine 06/25/20 07/04/20 Wale Shaver PA-C [address] [place] [address] PCP - General Internal Medicine 07/05/20 documented as of this encounter
--- OUTSIDE RECORDS SUMMARY | 2024-09-03 12:56 | XMS_ITS | Encounter Summary ---
Author Organization [facility] Address [address] [place] [address] Care Team Providers Care Pig Sticker Name Role Phone Sudheer Bermudez MD Primary Care Provider + [phone] Prince Goodrich Primary Care Provider [facility] Sudheer Bermudez MD Primary Care Provider + [phone] Noe Jones MD Primary Care Provider + [phone] Wale Shaver PA-C Primary Care Provider [phone] Encounter Details Date Type Department Care Team Description 08/06/2018 Flour Broker Report Medical Records [address] [place] [address] Abstract, Provider Social History Tobacco Use Types [...] documented as of this encounter Care Teams Pig Sticker Relationship Specialty Start Date End Date Sudheer Bermudez MD [address] [place] [address] [id number] PCP - General Internal Medicine 09/17/17 09/16/19 Prince Goodrich [address] [place] [address] PCP - General Internal Medicine 09/17/19 03/17/20 Sudheer Bermudez MD [address] [place] [address] PCP - General Internal Medicine 03/18/20 06/24/20 Noe Jones MD [address] [place] [address] PCP - General Internal Medicine 06/25/20 07/04/20 Wale Shaver PA-C [address] [place] [address] PCP - General Internal Medicine 07/05/20 documented as of this encounter
--- OUTSIDE RECORDS SUMMARY | 2024-09-03 12:56 | XMS_ITS | Encounter Summary ---
Author Organization [facility] Address [facility] [place] [address] Care Team Providers Care Flipping Machine Operator Name Role Phone Wale Shaver PA-C Primary Care Provider [phone] Reason for Visit * Reason Onset Date Comments Prior Authorization 11/09/2023 Encounter Details Date Type Department Care Team Description 11/09/2023 Telephone Endocrinology - [address] [address] Casie Davis PA-C [address] [place] [address] Prior Authorization Social History Tobacco Use Types Packs/Day Years [...] encounter Miscellaneous Notes * Telephone Encounter - Gail Barnes M.A. - 11/09/2023 4:02 PM EDT Auth approved Exp 07/15/24 Gail Barnes Prior Auth Dep Ext [id number] * Telephone Encounter - Gail Barnes M.A. 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 Is this a Cover My Meds request: Yes -- Noriega Code [id number] Name of Medication Ozempic Dose of Medication 0.25 or 0.5 MG What is the RX # from the faxed refill? How does patient take this med? Inject 0.5 mg into the skin once a week. What Pharmacy did the fax come from: Not listed on fax Pharmacy fax #: Not listed on fax documented in this encounter Plan of Treatment Not on file documented as of this encounter Visit Diagnoses Not on filedocumented in this encounter Care Teams Flipping Machine Operator Relationship Specialty Start Date End Date Wale Shaver PA-C [address] [place] [address] PCP - General Internal Medicine 07/05/20 documented as of this encounter
--- OUTSIDE RECORDS SUMMARY | 2024-09-03 12:56 | XMS_ITS | Encounter Summary ---
Author Organization [facility] Address [facility] [place] [address] Care Team Providers Care Script Developer Name Role Phone Wale Shaver PA-C Primary Care Provider [phone] Reason for Visit * Reason Comments E-prescribe Rx Request Encounter Details Date Type Department Care Team Description 01/12/2021 Refill Adult Medicine [facility] [address] [place] [address] Wale Shaver PA-C [address] [place] [address] E-prescribe Rx Request Social History Tobacco Use Types Packs/Day Years [...] Telephone Encounter - Agnes Wallace C.M.A - 01/14/2021 3:08 PM EDT Lab Results Component Value Date NA 139 12/07/2020 K 4.4 12/07/2020 CO2 27 12/07/2020 CL 102 12/07/2020 BUN 7 12/07/2020 CREAT 0.81 12/07/2020 GLU 302 12/07/2020 CA 9.4 12/07/2020 GFR > 60 12/07/2020 * Telephone Encounter - Romelia Yuan - 01/12/2021 2:39 PM EDT Patient would like script to be: E-PRESCRIBED/FAXED TO PHARMACY WHEN WAS THE PATIENT'S LAST APPOINTMENT IN ADULT MEDICINE? 12/08/20 WHEN WAS THE LAST TIME THE PATIENT SAW THEIR PCP? Same as above Does patient have an upcoming appointment? Yes 03/10/21 (THE MEDICATION REQUESTED IS ON THE MED LIST ABOVE) All of the medications requested were on the CURRENT MEDS list Did you check the Pharmacy information above?: YES Patient wants: 90 -day supply Is this a mail order prescription request ? NO If the refill is from a FAXED refill request what is the RX # listed on the fax? N/A Patients current insurance carrier is: [place] / [place] / Product Type: MEDICARE [id number] documented in this encounter Plan of Treatment Not on file documented as of this encounter Visit Diagnoses Not on filedocumented in this encounter Additional Health Concerns Infection Onset Date Last Indicated Resolved Time COVID-19 07/19/2022 07/20/2022 08/14/2023 11:4 2 AM EST documented as of this encounter Care Teams Script Developer Relationship Specialty Start Date End Date Wale Shaver PA-C [address] [place] [address] PCP - General Internal Medicine 07/05/20 documented as of this encounter
--- OUTSIDE RECORDS SUMMARY | 2024-09-03 12:56 | XMS_ITS | Encounter Summary ---
Author Organization [facility] Address [address] [place] [address] Care Team Providers Care Senior Resident Care Director Name Role Phone Daniel Chew Primary Care Provider Ajay Rich MD Primary Care Provider Daniel Shabazz Primary Care Provider Gerry Craig MD Primary Care Provider [phone] Sudheer Bermudez MD Primary Care Provider + [phone] Prince Goodrich Primary Care Provider Unavaila Sudheer Hair MD Primary Care Provider + [phone] Noe Jones MD Primary Care Provider [phone] Wale Shaver PA-C Primary Care Provider +[phone] Encounter Details Date Type Department Care Team Description 02/09/2015 Topographical Field Assistant Report Medical Records [address] [place] [id number] [place] [address] Social History Tobacco Use Types Packs/Day Years [...] documented as of this encounter Care Teams Senior Resident Care Director Relationship Specialty Start Date End Date Daniel Chew PCP - General Internal Medicine 09/08/14 03/07/15 Ajay Norton MD PCP - General Internal Medicine 03/08/15 05/10/15 Daniel Chew PCP - General Internal Medicine 05/11/15 06/26/17 Gerry Munoz MD [address] [place] [address] PCP - General Internal Medicine 06/27/17 09/16/17 Sudheer Bermudez MD [address] [place] [address] PCP - General Internal Medicine 09/17/17 09/16/19 Prince Goodrich [address] [place] [address] PCP - General Internal Medicine 09/17/19 03/17/20 Sudheer Bermudez MD [address] [place] [address] PCP - General Internal Medicine 03/18/20 06/24/20 Noe Jones MD [address] [place] [address] PCP - General Internal Medicine 06/25/20 07/04/20 Wale Shaver PA-C [address] [place] [address] PCP - General Internal Medicine 07/05/20 documented as of this encounter
--- OUTSIDE RECORDS SUMMARY | 2024-09-03 12:56 | XMS_ITS | Encounter Summary ---
Author Organization [facility] Address [address] [place] [address] Care Team Providers Care Mortar Man Name Role Phone Wale Shaver Primary Care Provider [phone] Encounter Details Date Type Department Care Team (Late st Contact Info) Description 05/26/2016 Orders Only [facility] [address] [place] [address] Lyric Lafleur MD [address] [place] [address] Social History Tobacco Use Types Packs/Day Years [...] Description 09/25/2024 10:30 AM EDT Office Visit [facility] [address] [place] [address] Brake Repairer Air: Kia Melgar MD [address] [place] [address] documented as of this encounter Visit Diagnoses Not on filedocumented in this encounter Care Teams Mortar Man Relationship Specialty Start Date End Date Wale Shaver PCP - General Internal Medicine 09/24/20 documented as of this encounter
--- OUTSIDE RECORDS SUMMARY | 2024-09-03 12:56 | XMS_ITS | Encounter Summary ---
Author Organization [facility] Address [address] [place] [address] Care Team Providers Care Certified Scrub Tech Name Role Phone Sudheer Bermudez MD Primary Care Provider + [phone] Prince Goodrich Primary Care Provider [facility] Sudheer Bermudez MD Primary Care Provider + [phone] Noe Jones MD Primary Care Provider + [phone] Wale Shaver PA-C Primary Care Provider [phone] Encounter Details Date Type Department Care Team Description 11/13/2018 Deposition Reporter Report Medical Records [address] [place] [address] Jim Ortiz MD Social History Tobacco Use Types Packs/Day [...] documented as of this encounter Care Teams Certified Scrub Tech Relationship Specialty Start Date End Date Sudheer Bermudez MD [address] [place] [address] PCP - General Internal Medicine 09/17/17 09/16/19 Prince Goodrich [address] [place] [address] PCP - General Internal Medicine 09/17/19 03/17/20 Sudheer Bermudez MD [address] [place] [address] PCP - General Internal Medicine 03/18/20 06/24/20 Noe Jones MD [address] [place] [address] PCP - General Internal Medicine 06/25/20 07/04/20 Wale Shaver PA-C [address] [place] [address] PCP - General Internal Medicine 07/05/20 documented as of this encounter
--- OUTSIDE RECORDS SUMMARY | 2024-09-03 12:56 | XMS_ITS | Encounter Summary ---
Author Organization [facility] Address [address] [place] [address] Care Team Providers Care Ems Instructor Name Role Phone Sudheer Bermudez MD Primary Care Provider + [phone] Prince Goodrich Primary Care Provider [facility] Sudheer Bermudez MD Primary Care Provider + [phone] Noe Jones MD Primary Care Provider + [phone] Wale Shaver PA-C Primary Care Provider [phone] Encounter Details Date Type Department Care Team Description 09/21/2018 Hospital Medical Records [address] [place] [address] Social History Tobacco Use Types Packs/Day Years [...] documented as of this encounter Care Teams Ems Instructor Relationship Specialty Start Date End Date Sudheer Bermudez MD [address] [place] [address] PCP - General Internal Medicine 09/17/17 09/16/19 Prince Goodrich [address] [place] [address] PCP - General Internal Medicine 09/17/19 03/17/20 Sudheer Bermudez MD [address] [place] [address] PCP - General Internal Medicine 03/18/20 06/24/20 Noe Jones MD [address] [place] [address] PCP - General Internal Medicine 06/25/20 07/04/20 Wale Shaver PA-C [address] [place] [address] PCP - General Internal Medicine 07/05/20 documented as of this encounter
--- OUTSIDE RECORDS SUMMARY | 2024-09-03 12:56 | XMS_ITS | Encounter Summary ---
Author Organization [facility] Address [facility] [place] [address] Care Team Providers Care Powerhouse Oiler Name Role Phone Wale Shaver PA-C Primary Care Provider [phone] Encounter Details Date Type Department Care Team Description 12/09/2020 Show Jumping Instructor Report Medical Records [address] [place] [address] Liang To MD Social History Tobacco Use [...] documented as of this encounter Care Teams Powerhouse Oiler Relationship Specialty Start Date End Date Wale Shaver PA-C [address] [place], [place] 6724420 PCP - General Internal Medicine 07/05/20 documented as of this encounter
--- OUTSIDE RECORDS SUMMARY | 2024-09-03 12:56 | XMS_ITS | Encounter Summary ---
Author Organization [facility] Address [address] [place] [address] Care Team Providers Care Artificial Breeding Distributor Name Role Phone Wale Shaver Primary Care Provider [phone] Encounter Details Date Type Department Care Team (Latest Contact Info) Description 10/02/2017 Constant Contacthart Message [facility] [address] [place] [address] Aeronautical Engineer: Lisa Chau MD [address] [place] [address] [phone] Prescription Question Social History Tobacco Use Types [...] Description 09/25/2024 10:30 AM EDT Office Visit [facility] [address] [place] [address] Aeronautical Engineer: Kia Melgar MD [address] [place] [address] [phone] documented as of this encounter Visit Diagnoses Not on filedocumented in this encounter Care Teams Artificial Breeding Distributor Relationship Specialty Start Date End Date Wale Shaver PCP - General Internal Medicine 09/24/20 documented as of this encounter
--- OUTSIDE RECORDS SUMMARY | 2024-09-03 12:56 | XMS_ITS | Encounter Summary ---
Author Organization [facility] Address [address] [place] [address] Care Team Providers Care Through Freight Engineer Name Role Phone Wale Shaver PA-C Primary Care Provider [phone] Reason for Visit * Reason Onset Date Comments refill request 11/12/2023 Encounter Details Date Type Department Care Team Description 11/12/2023 Pt. Non Urgent Medical Question Adult Medicine [address] [address] Wale Shaver PA-C [address] [place] [address] Social History Tobacco Use Types Packs/Day Years [...] * Telephone Encounter - Nayely Ritchie - 11/12/2023 11:55 AM EDTFrom: Iva Cervantes To: Vashti Shaver Sent: 11/12/2023 11:38 AM EDT Subject: Medication refills Good morning I need a refill on the glipizide 5 mg The cyclobenzaprine 10 mg And if possible the oxycodone/ acetaminophen 5-325.. the bone pain in my right leg has been horrendous and at times feels like my gonzales bone is going to snap and my knee likes to go for walks on its own but unfortunately I can???t get in with the orthopedic until december 10. @[facility] Win boggs .. I am also having issues with my right elbow/ shoulder and will be calling [place] today for that . Thank you Iva cervantes 1975 documented in this encounter Plan of Treatment Not on file documented as of this encounter Visit Diagnoses Not on filedocumented in this encounter Care Teams Through Freight Engineer Relationship Specialty Start Date End Date Wale Shaver PA-C [address] [place] [address] PCP - General Internal Medicine 07/05/20 documented as of this encounter
--- OUTSIDE RECORDS SUMMARY | 2024-09-03 12:56 | XMS_ITS | Encounter Summary ---
Author Organization [facility] Address [address] [place] [address] Care Team Providers Care Natural Resources Technician Name Role Phone Sudheer Bermudez MD Primary Care Provider + [phone] Prince Goodrich Primary Care Provider [facility] Sudheer Bermudez MD Primary Care Provider + [phone] Noe Jones MD Primary Care Provider + [phone] Wale Shaver PA-C Primary Care Provider [phone] Encounter Details Date Type Department Care Team Description 06/05/2018 Electrical And Instrumentation Mechanic Report Medical Records [address] [place] [address] Clay Vang Social History Tobacco Use Types Packs/Day Years [...] documented as of this encounter Care Teams Natural Resources Technician Relationship Specialty Start Date End Date Sudheer Bermudez MD [address] [place] [address] PCP - General Internal Medicine 09/17/17 09/16/19 Prince Goodrich [address] [place] [address] PCP - General Internal Medicine 09/17/19 03/17/20 Sudheer Bermudez MD [address] [place] [address] PCP - General Internal Medicine 03/18/20 06/24/20 Noe Jones MD [address] [place] [address] PCP - General Internal Medicine 06/25/20 07/04/20 Wale Shaver PA-C [address] [place] [address] PCP - General Internal Medicine 07/05/20 documented as of this encounter
--- OUTSIDE RECORDS SUMMARY | 2024-09-03 12:56 | XMS_ITS | Encounter Summary ---
Author Organization [facility] Address [address] [place] [address] Care Team Providers Care Lockstitch Machine Operator Name Role Phone Sudheer Bermudez MD Primary Care Provider + [phone] Prince Goodrich Primary Care Provider [facility] Sudheer Bermudez MD Primary Care Provider + [phone] Noe Jones MD Primary Care Provider + [phone] Wale Shaver PA-C Primary Care Provider +[phone] Encounter Details Date Type Department Care Team Description 04/21/2019 Release of Information Medical Records [address] [place] [address] Abstract, Provider Social History Tobacco Use Types [...] documented as of this encounter Care Teams Lockstitch Machine Operator Relationship Specialty Start Date End Date Sudheer Bermudez MD [address] [place] [address] PCP - General Internal Medicine 09/17/17 09/16/19 Prince Goodrich [address] [place] [address] PCP - General Internal Medicine 09/17/19 03/17/20 Sudheer Bermudez MD [address] [place] [address] PCP - General Internal Medicine 03/18/20 06/24/20 Noe Jones MD [address] [place] [address] PCP - General Internal Medicine 06/25/20 07/04/20 Wale Shaver PA-C [address] [place] [address] PCP - General Internal Medicine 07/05/20 documented as of this encounter
--- OUTSIDE RECORDS SUMMARY | 2024-09-03 12:56 | XMS_ITS | Encounter Summary ---
Author Organization [facility] Address [facility] [place] [address] Care Team Providers Care Social Studies Department Chair Name Role Phone Community, Pcp Primary Care Provider Daniel Rabago Primary Care Provider Ajay Rich MD Primary Care Provider Daniel Shabazz Primary Care Provider Gerry Craig MD Primary Care Provider [phone] Sudheer Bermudez MD Primary Care Provider + [phone] Prnice Goodrich Primary Care Provider UnavailSudheer Leo MD Primary Care Provider + [phone] Noe Jones MD Primary Care Provider +[phone] Wale Shaver PA-C Primary Care Provider +[phone] Encounter Details Date Type Department Care Team Description 06/25/2013 Hospital Medical Records [address] [place] [address] Arjun Bergeron MD Social History Tobacco Use Types Packs/Day [...] documented as of this encounter Care Teams Social Studies Department Chair Relationship Specialty Start Date End Date Community, Pcp PCP - General 11/14/09 09/07/14 Daniel Chew PCP - General Internal Medicine 09/08/14 03/07/15 Ajay Norton MD PCP - General Internal Medicine 03/08/15 05/10/15 Daniel Chew PCP - General Internal Medicine 05/11/15 06/26/17 Gerry Munoz MD [address] [place] [address] PCP - General Internal Medicine 06/27/17 09/16/17 Sudheer Bermudez MD [address] [place] [address] PCP - General Internal Medicine 09/17/17 09/16/19 Prince Goodrich [address] [place] [address] PCP - General Internal Medicine 09/17/19 03/17/20 Sudheer Bermudez MD [address] [place] [address] PCP - General Internal Medicine 03/18/20 06/24/20 Noe Jones MD [address] [place] [address] PCP - General Internal Medicine 06/25/20 07/04/20 Wale Shaver PA-C [address] [place] [address] PCP - General Internal Medicine 07/05/20 documented as of this encounter
--- OUTSIDE RECORDS SUMMARY | 2024-09-03 12:56 | XMS_ITS | Encounter Summary ---
Author Organization [facility] Address [address] [place] [address] Care Team Providers Care Gauger Chief Delivery Name Role Phone Ajay Norton MD Primary Care Provider Daniel Shabazz Primary Care Provider Gerry Craig MD Primary Care Provider [phone] Sudheer Bermudez MD Primary Care Provider + [phone] Prince Goodrich Primary Care Provider Unavaila Sudheer Hair MD Primary Care Provider + [phone] Noe Jones MD Primary Care Provider +[phone] Wale Shaver PA-C Primary Care Provider +[phone] Reason for Visit * Reason Onset Date Comments Medication 03/23/2015 Encounter Details Date Type Department Care Team Description 03/23/2015 Telephone Adult Medicine [address] [address] Ajay Norton MD Medication Social History Tobacco Use Types Packs/Day Years Used Date Smoking Tobacco: Never Alcohol Use Standard Drinks/Week Comments No 0 (1 standard drink = 0.6 oz pur e alcohol) Sex Assigned at Date Recorded Not on file Job Start Date Occupation Industry Not on file Not on file Not on file documented as of this encounter Miscellaneous Notes * Telephone Encounter - Anna Anguiano M.A. - 03/23/2015 3:05 PM EDT Patient needs to be seen before a script can be given * Telephone Encounter - Lisseth Fields - 03/23/2015 2:11 PM EDT Patient would like script to be: E-PRESCRIBED/FAXED TO PHARMACY When was the patients last office visit in Adult Medicine?: New patient , her appt with Dr. Norton is04/02/15 When was the last time the patient saw their PCP? Not seen yet Does patient have an upcoming appointment? Yes 04/02/15 (THE MEDICATION IS NOT ON THE MED LIST AND IS IDENTIFIED BELOW): {MED LIST:38044) Med name: Relafen Dosage: 700 mg # of tablets: 60 Local pharmacy with request for 30 -day supply Instructions: 1 tab two times daily Did you check the pharmacy information above?: YES Patients current insurance carrier: Payor: [employer] / Plan: PPO $10 [place] 5658 / Product Type: PPO [id number] documented in this encounter Plan of Treatment Not on file documented as of this encounter Visit Diagnoses Not on filedocumented in this encounter Additional Health Concerns Infection Onset Date Last Indicated Resolved Time COVID-19 07/19/2022 07/20/2022 08/14/2023 11:4 2 AM EST documented as of this encounter Care Teams Gauger Chief Delivery Relationship Specialty Start Date End Date Ajay Norton MD PCP - General Internal Medicine 03/08/15 05/10/15 Daniel Chew PCP - General Internal Medicine 05/11/15 06/26/17 Gerry Munoz MD [address] [place] [address] PCP - General Internal Medicine 06/27/17 09/16/17 Sudheer Bermudez MD [address] [place] [address] PCP - General Internal Medicine 09/17/17 09/16/19 Prince Goodrich [address] [place] [address] PCP - General Internal Medicine 09/17/19 03/17/20 Sudheer Bermudez MD [address] [place] [address] PCP - General Internal Medicine 03/18/20 06/24/20 Noe Jones MD [address] [place] [address] PCP - General Internal Medicine 06/25/20 07/04/20 Wale Shaver PA-C [address] [place] [address] PCP - General Internal Medicine 07/05/20 documented as of this encounter
--- OUTSIDE RECORDS SUMMARY | 2024-09-03 12:56 | XMS_ITS | Encounter Summary ---
Author Organization [facility] Address [facility] [place] [address] Care Team Providers Care Retread Mold Operator Name Role Phone Community, Pcp Primary Care Provider Daniel Rabago Primary Care Provider Ajay Rich MD Primary Care Provider Daniel Shabazz Primary Care Provider Gerry Craig MD Primary Care Provider [phone] Sudheer Bermudez MD Primary Care Provider + [phone] Prince Goodrich Primary Care Provider UnavailSudheer Leo MD Primary Care Provider + [phone] Noe Jones MD Primary Care Provider [phone] Wale Shaver PA-C Primary Care Provider +[phone] Encounter Details Date Type Department Care Team Description 03/13/2013 Hospital Medical Records [address] [place] [address] Arjun Bergeron MD Social History Tobacco Use [...] documented as of this encounter Care Teams Retread Mold Operator Relationship Specialty Start Date End Date Community, Pcp PCP - General 11/14/09 09/07/14 Daniel Chew PCP - General Internal Medicine 09/08/14 03/07/15 Ajay Norton MD PCP - General Internal Medicine 03/08/15 05/10/15 Daniel Chew PCP - General Internal Medicine 05/11/15 06/26/17 Gerry uMnoz MD [address] [place] [address] PCP - General Internal Medicine 06/27/17 09/16/17 Sudheer Bermudez MD [address] [place] [address] PCP - General Internal Medicine 09/17/17 09/16/19 Prince Goodrich [address] [place] [address] PCP - General Internal Medicine 09/17/19 03/17/20 Sudheer Bermudez MD [address] [place] [address] PCP - General Internal Medicine 03/18/20 06/24/20 Noe Jones MD [address] [place] [address] PCP - General Internal Medicine 06/25/20 07/04/20 Wale Shaver PA-C [address] [place] [address] PCP - General Internal Medicine 07/05/20 documented as of this encounter
--- OUTSIDE RECORDS SUMMARY | 2024-09-03 12:56 | XMS_ITS | Encounter Summary ---
Author Organization [facility] Address [facility] [place] [address] Care Team Providers Care Rn Pain Management Name Role Phone Wale Shaver PA-C Primary Care Provider [phone] Encounter Details Date Type Department Care Team Description 09/24/2023 Pt. Non Urgent Medical Question Adult Medicine [address] [address] Wale Shaver PA-C [address] [place] [address] Social History Tobacco Use Types Packs/Day Years [...] * Telephone Encounter - Nayely Ritchie - 09/24/2023 1:40 PM EDTFrom: Iva Cervantes To: Vashti Shaver Sent: 09/24/2023 12:51 PM EDT Subject: Gena I just talked to the pharmacist at [facility] the insurance is requiring a prior authorization in order to cover it documented in this encounter Plan of Treatment Not on file documented as of this encounter Visit Diagnoses Not on filedocumented in this encounter Care Teams Rn Pain Management Relationship Specialty Start Date End Date Wale Shaver PA-C [address] [place] [address] PCP - General Internal Medicine 07/05/20 documented as of this encounter
--- OUTSIDE RECORDS SUMMARY | 2024-09-03 12:56 | XMS_ITS | Encounter Summary ---
Author Organization [facility] Address [address] [place] [address] Care Team Providers Care Manager Human Resources Name Role Phone Sudheer Bermudez MD Primary Care Provider + [phone] Prince Goodrich Primary Care Provider [facility] Sudheer Bermudez MD Primary Care Provider + [phone] Noe Jones MD Primary Care Provider [phone] Wale Shaver PA-C Primary Care Provider [phone] Encounter Details Date Type Department Care Team Description 04/16/2019 Manager Clinical Informatics Report Medical Records [address] [place] [address] Adan Alfonso MD Social History Tobacco Use Types Packs/Day [...] as of this encounter Care Teams Manager Human Resources Relationship Specialty Start Date End Date Sudheer Bermudez MD [address] [place] [address] PCP - General Internal Medicine 09/17/17 09/16/19 Prince Goodrich [address] [place] [address] PCP - General Internal Medicine 09/17/19 03/17/20 Sudheer Bermudez MD [address] [place] [address] PCP - General Internal Medicine 03/18/20 06/24/20 Noe Jones MD [address] [place] [address] PCP - General Internal Medicine 06/25/20 07/04/20 Wale Shaver PA-C [address] [place] [address] PCP - General Internal Medicine 07/05/20 documented as of this encounter
--- OUTSIDE RECORDS SUMMARY | 2024-09-03 12:56 | XMS_ITS | Encounter Summary ---
Author Organization [facility] Address [facility] [place] [address] Care Team Providers Care Lead Cargoman Name Role Phone Wale Shaver PA-C Primary Care Provider [phone] Encounter Details Date Type Department Care Team Description 02/12/2023 Hot Mill Roller Report Medical Records [address] [place] [address] Karla Hull, NORMAN Social History Tobacco Use Types Packs/Day Years [...] documented as of this encounter Care Teams Lead Cargoman Relationship Specialty Start Date End Date Wale Shaver PA-C [address] [place] [address] PCP - General Internal Medicine 07/05/20 documented as of this encounter
--- OUTSIDE RECORDS SUMMARY | 2024-09-03 12:56 | XMS_ITS | Encounter Summary ---
Author Organization [facility] Address [facility] [place] [address] Care Team Providers Care Artificial Limb Maker Name Role Phone Wale Shaver PA-C Primary Care Provider [phone] Encounter Details Date Type Department Care Team Description 02/12/2023 Metal Grinder Report Medical Records [address] [place] [address] Karla Hull, NORMAN Social History Tobacco Use [...] documented as of this encounter Care Teams Artificial Limb Maker Relationship Specialty Start Date End Date Wale Shaver PA-C [address] [place] [address] PCP - General Internal Medicine 07/05/20 documented as of this encounter
--- OUTSIDE RECORDS SUMMARY | 2024-09-03 12:56 | XMS_ITS | Encounter Summary ---
Author Organization [facility] Address [address] [place] [address] Care Team Providers Care Harness Racing Handicapper Name Role Phone Sudheer Bermudez MD Primary Care Provider + [phone] Prince Goodrich Primary Care Provider [facility] Sudheer Bermudez MD Primary Care Provider + [phone] Noe Jones MD Primary Care Provider + [phone] Wale Shaver PA-C Primary Care Provider [phone] Encounter Details Date Type Department Care Team Description 01/29/2019 Helper Shear Operator Report Medical Records [address] [place] [address] Tessy Patel MD Social History Tobacco Use Types Packs/Day [...] documented as of this encounter Care Teams Harness Racing Handicapper Relationship Specialty Start Date End Date Sudheer Bermudez MD [address] [place] [address] PCP - General Internal Medicine 09/17/17 09/16/19 Prince Goodrich [address] [place] [address] PCP - General Internal Medicine 09/17/19 03/17/20 Sudheer Bermudez MD [address] [place] [address] PCP - General Internal Medicine 03/18/20 06/24/20 Noe Jones MD [address] [place] [address] PCP - General Internal Medicine 06/25/20 07/04/20 Wale Shaver PA-C [address] [place] [address] PCP - General Internal Medicine 07/05/20 documented as of this encounter
--- OUTSIDE RECORDS SUMMARY | 2024-09-03 12:57 | XMS_ITS | Encounter Summary ---
Author Organization [facility] Address [address] [place] [address] Care Team Providers Care Beater Room Supervisor Name Role Phone Sudheer Bermudez MD Primary Care Provider + [phone] Noe Jones MD Primary Care Provider + [phone] Wale Shaver PA-C Primary Care Provider [phone] Encounter Details Date Type Department Care Team Description 05/10/2020 Chip Bin Conveyor Tender Report Medical Records [address] [place] [address] Liang To MD Social History Tobacco Use [...] have Coronavirus / COVID-19? No / Unsure 05/03/2020 7:57 AM EDT documented as of this encounter Plan of Treatment Not on file documented as of this encounter Visit Diagnoses Not on filedocumented in this encounter Additional Health Concerns Infection Onset Date Last Indicated Resolved Time COVID-19 07/19/2022 07/20/2022 08/14/2023 11:4 2 AM EST documented as of this encounter Care Teams Beater Room Supervisor Relationship Specialty Start Date End Date Sudheer Bermudez MD [address] [place] [address] PCP - General Internal Medicine 9/3/20 12/10/20 Noe Jones MD [address] [place] [address] PCP - General Internal Medicine 06/25/20 07/04/20 Wale Shaver PA-C [address] [place] [address] PCP - General Internal Medicine 07/05/20 documented as of this encounter
--- OUTSIDE RECORDS SUMMARY | 2024-09-03 12:57 | XMS_ITS | Encounter Summary ---
Author Organization [facility] Address [facility] [place] [address] Care Team Providers Care Cleaning And Washing Equipment Operator Name Role Phone Wale Shaver PA-C Primary Care Provider [phone] Encounter Details Date Type Department Care Team Description 12/13/2021 Broadcast Engineer Report Medical Records [address] [place] [address] Liang To MD Social History Tobacco Use [...] documented as of this encounter Care Teams Cleaning And Washing Equipment Operator Relationship Specialty Start Date End Date Wale Shaver PA-C [address] [place] [address] PCP - General Internal Medicine 07/05/20 documented as of this encounter
--- OUTSIDE RECORDS SUMMARY | 2024-09-03 12:57 | XMS_ITS | Encounter Summary ---
Author Organization [facility] Address [facility]9 [place] [address] Care Team Providers Care Director Of Food And Nutrition Name Role Phone Wale Shaver PA-C Primary Care Provider +[phone] Encounter Details Date Type Department Care Team Description 08/23/2020 Replanter Report Medical Records [address] [place] [address] Liang To MD Social History Tobacco Use [...] have Coronavirus / COVID-19? No / Unsure 08/24/2020 10:09 AM EST documented as of this encounter Plan of Treatment Not on file documented as of this encounter Visit Diagnoses Not on filedocumented in this encounter Additional Health Concerns Infection Onset Date Last Indicated Resolved Time COVID-19 07/19/2022 07/20/2022 08/14/2023 11:4 2 AM EST documented as of this encounter Care Teams Director Of Food And Nutrition Relationship Specialty Start Date End Date Wale Shaver PA-C [address] [place] [address] PCP - General Internal Medicine 07/05/20 documented as of this encounter
--- OUTSIDE RECORDS SUMMARY | 2024-09-03 12:57 | XMS_ITS | Patient Health Record ---
Author Organization [facility] Address [address] [place] [address] Care Team Providers Care Rewards Consultant Name Role Phone ELOISA SANCHEZ PA-C Primary [...] 200 MG as directed Subcutaneous Active Nystatin 626262 UNIT/GM APPLY TO AFFECTE D AREA TWICE [...] Notes Problem Rectal bleeding (K62.5) Active confirmed 38771608 Problem Gastro-esophageal reflux disease without esophagitis (K21.9) Active confirmed 796046361 Problem Elevated LFTs (R79.89) Active confirmed 878505675 Problem Gastroesophageal reflux disease without esophagitis (K21.9) Active confirmed 576211418 Problem Abnormal liver function tests (R79.89) Active confirmed 215683044 Problem Abnormal LFTs (R94.5) Active confirmed 212925157 PLAN OF TREATMENT Pending Test Test Name Order Date LIVER PROFILE 02/19/2020 LIVER PROFILE 06/28/2022 GGT 02/19/2020 CBC w DIFF 06/28/2022 CBC w/o DIFF 11/05/2020 PROTHROMBIN TIME (PT, INR) 06/28/2022 PROTHROMBIN TIME (PT, INR) 11/05/2020 PARTIAL THROMBOPLASTIN TIME (PTT) 2020 US ABD 06/28/2022 Liver Fibrosis Pnl 06/28/2022 US biopsy liver 11/05/2020 Future Test Test Name Order Date UPPER GI ENDOSCOPY 02/19/2020 COLONOSCOPY 02/19/2020 Insurance Providers Payer Name Payer Address Payer Phone Subscriber Number Group Number Insured Name Patient Relationship to Insured Coverage Start Date Coverage End Date [place] [address] [place] [address] [id number] DOC RICHARDS Self - patient is the insured MEDICAID OF [facility] [address] [place] [phone] [id number] DOC RICHARDS Self - patient is the [...]
--- OUTSIDE RECORDS SUMMARY | 2024-09-03 12:57 | XMS_ITS | Encounter Summary ---
Author Organization [facility] Address [facility]9 [place] [address] Care Team Providers Care Consulting Group Analyst Name Role Phone Wale Shaver PA-C Primary Care Provider +[phone] Encounter Details Date Type Department Care Team Description 12/11/2022 Home Health Certification Medical Records [address] [place] [address] Social History Tobacco Use Types Packs/Day Years [...] documented as of this encounter Care Teams Consulting Group Analyst Relationship Specialty Start Date End Date Wale Shaver PA-C [address] [place] [address] PCP - General Internal Medicine 07/05/20 documented as of this encounter
--- OUTSIDE RECORDS SUMMARY | 2024-09-03 12:57 | XMS_ITS | Encounter Summary ---
Author Organization [facility] Address [address] [place] [address] Care Team Providers Care Guest Services Representative Name Role Phone Sudheer Bermudez MD Primary Care Provider + [phone] Prince Goodrich Primary Care Provider [facility] Sudheer Bermudez MD Primary Care Provider + [phone] Noe Jones MD Primary Care Provider + [phone] Wale Shaver PA-C Primary Care Provider +[phone] Encounter Details Date Type Department Care Team Description 10/15/2017 Neurosurgical Physician Assistant Report Medical Records [address] [place] [address] Ruben Morfin Social History Tobacco Use Types Packs/Day Years [...] documented as of this encounter Care Teams Guest Services Representative Relationship Specialty Start Date End Date Sudheer Bermudez MD [address] [place] [address] PCP - General Internal Medicine 09/17/17 09/16/19 Prince Goodrich [address] [place] [address] PCP - General Internal Medicine 09/17/19 03/17/20 Sudheer Bermudez MD [address] [place] [address] PCP - General Internal Medicine 03/18/20 06/24/20 Noe Jones MD [address] [place] [address] PCP - General Internal Medicine 06/25/20 07/04/20 Wale Shaver PA-C [address] [place] [address] PCP - General Internal Medicine 07/05/20 documented as of this encounter
--- OUTSIDE RECORDS SUMMARY | 2024-09-03 12:57 | XMS_ITS | Encounter Summary ---
Author Organization [facility] Address [address] [place] [address] Care Team Providers Care Green Hide Inspector Name Role Phone Sudheer Bermudez MD Primary Care Provider + [phone] Prince Goodrich Primary Care Provider [facility] Sudheer Bermudez MD Primary Care Provider + [phone] Noe Jones MD Primary Care Provider + [phone] Wale Shaver PA-C Primary Care Provider +[phone] Encounter Details Date Type Department Care Team Description 07/30/2019 Land Acquisition Manager Report Medical Records [address] [place] [address] Jaxson Dias MD Social History Tobacco Use Types Packs/Day [...] documented as of this encounter Care Teams Green Hide Inspector Relationship Specialty Start Date End Date Sudheer Bermudez MD [address] [place], [place] [address] PCP - General Internal Medicine 09/17/17 09/16/19 Prince Goodrich [address] [place] [address] PCP - General Internal Medicine 09/17/19 03/17/20 Sudheer Bermudez MD [address] [place] [address] PCP - General Internal Medicine 03/18/20 06/24/20 Neo Jones MD [address] [place] [address] PCP - General Internal Medicine 06/25/20 07/04/20 Wale Shaver PA-C [address] [place] [address] PCP - General Internal Medicine 07/05/20 documented as of this encounter
--- OUTSIDE RECORDS SUMMARY | 2024-09-03 12:57 | XMS_ITS | Encounter Summary ---
Author Organization [facility] Address [address] [place] [address] Care Team Providers Care Loom Inspector Name Role Phone Gerry Munoz MD Primary Care Provider [phone] Sudheer Bermudez MD Primary Care Provider + [phone] Prince Goodrich Primary Care Provider [facility] Sudheer Bermudez MD Primary Care Provider + [phone] Noe Jones MD Primary Care Provider [phone] Wale Shaver PA-C Primary Care Provider +[phone] Encounter Details Date Type Department Care Team Description 07/26/2017 Transfer Records Medical Records [address] [place] [address] Abstract, Provider Social History Tobacco Use Types Packs/Day Years Used Date Smoking Tobacco: Never Alcohol Use Standard Drinks/Week Comments No 0 (1 standard drink = 0.6 oz pur e alcohol) Sex Assigned at Date Recorded Not on file Job Start Date Occupation Industry Not on file Not on file Not on file documented as of this encounter Nursing Notes * Mary Ann Kenyon - 07/26/2017 9:09 AM EST Transfer Records from [facility] sent to Kori Rodriguez R.N. School Year [employer]anny. documented in this encounter Plan of Treatment Not on file documented as of this encounter Visit Diagnoses Not on filedocumented in this encounter Additional Health Concerns Infection Onset Date Last Indicated Resolved Time COVID-19 07/19/2022 07/20/2022 08/14/2023 11:4 2 AM EST documented as of this encounter Care Teams Loom Inspector Relationship Specialty Start Date End Date Gerry Munoz MD [address] [place] [address] PCP - General Internal Medicine 06/27/17 09/16/17 Sudheer Bermudez MD [address] [place] [address] PCP - General Internal Medicine 09/17/17 09/16/19 Prince Goodrich [address] [place] [address] PCP - General Internal Medicine 09/17/19 03/17/20 Sudheer Bermudez MD [address] [place] [address] PCP - General Internal Medicine 03/18/20 06/24/20 Noe Jones MD [address] [place] [address] PCP - General Internal Medicine 06/25/20 07/04/20 Wale Shaver PA-C [address] [place] [address] PCP - General Internal Medicine 07/05/20 documented as of this encounter
--- OUTSIDE RECORDS SUMMARY | 2024-09-03 12:57 | XMS_ITS | Encounter Summary ---
Author Organization [facility] Address [address] [place] [address] Care Team Providers Care Cotton Dispatcher Name Role Phone Sudheer Bermudez MD Primary Care Provider + [phone] Prince Goodrich Primary Care Provider [facility] Sudheer Bermudez MD Primary Care Provider + [phone] Noe Jones MD Primary Care Provider + [phone] Wale Shaver PA-C Primary Care Provider [phone] Encounter Details Date Type Department Care Team Description 11/22/2017 Plastic Installer Report Medical Records [address] [place] [address] Fran Dupont Social History Tobacco Use Types Packs/Day Years [...] documented as of this encounter Care Teams Cotton Dispatcher Relationship Specialty Start Date End Date Sudheer Bermudez MD [address] [place] [address] PCP - General Internal Medicine 09/17/17 09/16/19 Prince Goodrich [address] [place] [address] PCP - General Internal Medicine 09/17/19 03/17/20 Sudheer Bermudez MD [address] [place] [address] PCP - General Internal Medicine 03/18/20 06/24/20 Noe Jones MD [address] [place] [address] PCP - General Internal Medicine 06/25/20 07/04/20 Wale Shaver PA-C [address] [place] [address] PCP - General Internal Medicine 07/05/20 documented as of this encounter
--- OUTSIDE RECORDS SUMMARY | 2024-09-03 12:57 | XMS_ITS | Encounter Summary ---
Author Organization [facility] Address [facility] [place] [address] Care Team Providers Care Mate Fishing Vessel Name Role Phone Wale Shaver PA-C Primary Care Provider [phone] Reason for Visit * Reason Comments E-prescribe Rx Request Encounter Details Date Type Department Care Team Description 03/25/2022 Refill Adult Medicine [address] [address] Kellie Copeland PA-C [address] [place] [address] E-prescribe Rx Request Social History Tobacco Use [...] Exposure Response Date Recorded In the last 10 days, have yo u been in contact with someone who was confirmed or suspected to have Coronavirus/COVID-19? No / Unsure 03/13/2022 8:11 AM EDT documented as of this encounter Miscellaneous Notes * Telephone Encounter - Rina Slade M.A. - 03/30/2022 10:21 AM EDT Lab Results Component Value Date HGBA1C 11.8 01/10/2022 MALBUR < 5.0 01/10/2022 MALBCR < 11.6 01/10/2022 CHOL 184 01/10/2022 LDL 75 01/10/2022 HDL 78 01/10/2022 TRIG 157 01/10/2022 GLU 208 01/10/2022 CREAT 0.68 01/10/2022 JAHAIRA 01/13/22 NOV 05/30/22 * Telephone Encounter - Giovanna Baires - 03/30/2022 8:47 AM EDT Patient would like script to be: E-PRESCRIBED/FAXED TO PHARMACY ?? WHEN WAS THE PATIENT'S LAST APPOINTMENT IN ADULT MEDICINE? 01/13/22 ?? WHEN WAS THE LAST TIME THE PATIENT SAW THEIR PCP? Same as above ?? Does patient have an upcoming appointment? Yes 05/30/22 ?? (THE MEDICATION REQUESTED IS ON THE MED LIST ABOVE) All of the medications requested were on the CURRENT MEDS list ?? Did you check the Pharmacy information above?: YES ?? Patient wants: 90 -day supply ?? Is this a mail order prescription request ? NO ?? If the refill is from a FAXED refill request what is the RX # listed on the fax? N/A ?? Patients current insurance carrier is: [place] / [place] / Product Type: MEDICARE [id number] ?? documented in this encounter Plan of Treatment Not on file documented as of this encounter Visit Diagnoses Diagnosis Type 2 diabetes mellitus without complication, without long-term current use of insulin (HCC) Rheumatoid arthritis of multiple sites with negative rheumatoid factor (HCC) Acute URI Acute upper respiratory infections of unspecified site Mild intermittent asthma without complication Unspecified asthma documented in this encounter Additional Health Concerns Infection Onset Date Last Indicated Resolved Time COVID-19 07/19/2022 07/20/2022 08/14/2023 11:4 2 AM EST documented as of this encounter Care Teams Mate Fishing Vessel Relationship Specialty Start Date End Date Wale Shaver PA-C [address] [place] [address] PCP - General Internal Medicine 07/05/20 documented as of this encounter
--- OUTSIDE RECORDS SUMMARY | 2024-09-03 12:57 | XMS_ITS | Encounter Summary ---
Author Organization [facility] Address [address] [place] [address] Care Team Providers Care Caustic Room Operator Name Role Phone Sudheer Bermudez MD Primary Care Provider + [phone] Prince Goodrich Primary Care Provider [facility] Sudheer Bermudez MD Primary Care Provider + [phone] Noe Jones MD Primary Care Provider + [phone] Wale Shaver PA-C Primary Care Provider [phone] Encounter Details Date Type Department Care Team Description 10/30/2017 PNO Controlled Substance Contract Medical Records [address] [place] [address] Abstract, Provider Social History Tobacco Use Types [...] documented as of this encounter Care Teams Caustic Room Operator Relationship Specialty Start Date End Date Sudheer Bermuedz MD [address] [place] [address] PCP - General Internal Medicine 09/17/17 09/16/19 Prince Goodrich [address] [place] [address] PCP - General Internal Medicine 09/17/19 03/17/20 Sudheer Bermudez MD [address] [place] [address] PCP - General Internal Medicine 03/18/20 06/24/20 oNe Jones MD [address] [place] [address] PCP - General Internal Medicine 06/25/20 07/04/20 Wale Shaver PA-C [address] [place] [address] PCP - General Internal Medicine 07/05/20 documented as of this encounter
--- OUTSIDE RECORDS SUMMARY | 2024-09-03 12:57 | XMS_ITS | Encounter Summary ---
Author Organization [facility] Address [facility] [place] [address] Care Team Providers Care Plaster Die Maker Name Role Phone Daniel Chew Primary Care Provider UnavailGerry Hawkins MD Primary Care Provider [phone] Sudheer Bermudez MD Primary Care Provider + [phone] Prince Goodrich Primary Care Provider Unavaila Sudheer Hair MD Primary Care Provider + [phone] Noe Jones MD Primary Care Provider + [phone] Wale Shaver PA-C Primary Care Provider + [phone] Encounter Details Date Type Department Care Team Description 05/29/2017 [facility] Medical Records [address] [place] [address] Clay Vang Social History Tobacco Use Types [...] documented as of this encounter Care Teams Plaster Die Maker Relationship Specialty Start Date End Date Daniel Chew PCP - General Internal Medicine 05/11/15 06/26/17 Gerry Munoz MD [address] [place] [address] PCP - General Internal Medicine 06/27/17 09/16/17 Sudheer Bermudez MD [address] [place] [address] PCP - General Internal Medicine 09/17/17 09/16/19 Prince Goodrich [address] [place] [address] PCP - General Internal Medicine 09/17/19 03/17/20 Sudheer Bermudez MD [address] [place] [address] PCP - General Internal Medicine 03/18/20 06/24/20 Noe Jones MD [address] [place] [address] PCP - General Internal Medicine 06/25/20 07/04/20 Wale Shaver PA-C [address] [place] [address] PCP - General Internal Medicine 07/05/20 documented as of this encounter
--- OUTSIDE RECORDS SUMMARY | 2024-09-03 12:57 | XMS_ITS | Encounter Summary ---
Author Organization [facility] Address [address] [place] [address] Care Team Providers Care Library Science Instructor Name Role Phone Wale Shaver PA-C Primary Care Provider [phone] Reason for Visit * Reason Onset Date Comments Faxed Order 12/28/2022 [facility] [id number], [id number], [id number], [id number], [id number] Encounter Details Date Type Department Care Team Description 12/28/2022 Telephone Adult Medicine [address] [address] Wale Shaver PA-C [address] [place] [address] Faxed Order ([facility] [id number], [id number], [id number], [id number], [id number]) Social History Tobacco Use Types Packs/Day Years [...] suspected to have Coronavirus/COVID-19? No / Unsure 12/27/2022 1:42 PM EDT documented as of this encounter Plan of Treatment Not on file documented as of this encounter Visit Diagnoses Not on filedocumented in this encounter Additional Health Concerns Infection Onset Date Last Indicated Resolved Time COVID-19 07/19/2022 07/20/202208/1408/14/2023 11:4 2 AM EST documented as of this encounter Care Teams Library Science Instructor Relationship Specialty Start Date End Date Wale Shaver PA-C [address] [place] [address] PCP - General Internal Medicine 07/05/20 documented as of this encounter
--- OUTSIDE RECORDS SUMMARY | 2024-09-03 12:57 | XMS_ITS | Encounter Summary ---
Author Organization [facility] Address [facility] [place] [address] Care Team Providers Care Telemetry Nurse Name Role Phone Gerry Munoz MD Primary Care Provider [phone] Sudheer Bermudez MD Primary Care Provider + [phone] Prince Goodrich Primary Care Provider [facility] Sudheer Bermudez MD Primary Care Provider + [phone] Noe Jones MD Primary Care Provider [phone] Wale Shaver PA-C Primary Care Provider + [phone] Encounter Details Date Type Department Care Team Description 08/22/2017 Release of Information Medical Records [address] [place] [address] Abstract, Provider Social History Tobacco Use Types [...] documented as of this encounter Care Teams Telemetry Nurse Relationship Specialty Start Date End Date Gerry Munoz MD [address] [place] [address] [id number] PCP - General Internal Medicine 06/27/17 09/16/17 Sudheer Bermudez MD [address] [place] [address] PCP - General Internal Medicine 09/17/17 09/16/19 Prince Goodrich [address] [place] [address] PCP - General Internal Medicine 09/17/19 03/17/20 Sudheer Bermudez MD [address] [place] [address] PCP - General Internal Medicine 03/18/20 06/24/20 Noe Jones MD [address] [place] [address] PCP - General Internal Medicine 06/25/20 07/04/20 Wale Shaver PA-C [address] [place] [address] PCP - General Internal Medicine 07/05/20 documented as of this encounter
--- OUTSIDE RECORDS SUMMARY | 2024-09-03 12:57 | XMS_ITS | Encounter Summary ---
Author Organization [facility] Address [facility] [place] [address] Care Team Providers Care Brief Writer Name Role Phone Wale Shaver PA-C Primary Care Provider [phone] Encounter Details Date Type Department Care Team Description 11/23/2022 Scale Technician Report Medical Records [address] [place] [address] Coni Doyle Social History Tobacco Use Types Packs/Day Years [...] documented as of this encounter Care Teams Brief Writer Relationship Specialty Start Date End Date Wale Shaver PA-C [address] [place] [address] PCP - General Internal Medicine 07/05/20 documented as of this encounter
--- OUTSIDE RECORDS SUMMARY | 2024-09-03 12:57 | XMS_ITS | Encounter Summary ---
Author Organization [facility] Address [facility] [place] [address] Care Team Providers Care Concert Manager Name Role Phone Wale Shaver PA-C Primary Care Provider [phone] Encounter Details Date Type Department Care Team Description 10/19/2020 Shank Inspector Report Medical Records [address] [place] [address] Liang To MD Social History Tobacco Use [...] have Coronavirus / COVID-19? No / Unsure 10/08/2020 7:57 AM EDT documented as of this encounter Plan of Treatment Not on file documented as of this encounter Visit Diagnoses Not on filedocumented in this encounter Additional Health Concerns Infection Onset Date Last Indicated Resolved Time COVID-19 07/19/2022 07/20/2022 08/14/2023 11:4 2 AM EST documented as of this encounter Care Teams Concert Manager Relationship Specialty Start Date End Date Wale Shaver PA-C [address] [place], [place] [phone] PCP - General Internal Medicine 07/05/20 documented as of this encounter
--- OUTSIDE RECORDS SUMMARY | 2024-09-03 12:57 | XMS_ITS | Encounter Summary ---
Author Organization [facility] Address [facility] [place] [address] Care Team Providers Care Application Support Administrator Name Role Phone Wale Shaver PA-C Primary Care Provider +[phone] Reason for Referral * EXTERNAL (Routine) - Authorized/Booked Specialty Diagnoses / Procedures Referred By Aurelio calero Referred To Contact Physical Therapy Procedures REFERRAL TO PHYSICAL THERAPY Wale Shaver PA-C [address] [place] [address] External Phys Thrpy Referral ID Status Reason Start Date Expiration Date V isits Requested Visits Authorized [id number] Authorized/B ooked 10/14/2021 01/24/2022 1 1 Reason for Visit * Reason Onset Date Comments Hearth Feeder Feedback 10/14/2021 update pt order Encounter Details Date Type Department Care Team Description 10/14/2021 Telephone Adult Medicine [address] [address] Wale Shaver PA-C [address] [place] [address] Hearth Feeder Feedback (update pt order) Social History Tobacco Use Types Packs/Day Years [...] Recorded In the last 10 days, have samira u been in contact with someone who was confirmed or suspected to have Coronavirus/COVID-19? No / Unsure 10/11/2021 12:26 PM EDT documented as of this encounter Miscellaneous Notes * Telephone Encounter - Glenis Hillman - 10/14/2021 3:36 PM EDT Updated order to physical therapy is needed Satish 4.5.22 at 830am I will request a referral to Physical Therapy. Diagnosis: back pain documented in this encounter Plan of Treatment Not on file documented as of this encounter Visit Diagnoses Not on filedocumented in this encounter Additional Health Concerns Infection Onset Date Last Indicated Resolved Time COVID-19 07/19/2022 07/20/2022 08/14/2023 11:4 2 AM EST documented as of this encounter Care Teams Application Support Administrator Relationship Specialty Start Date End Date Wale Shaver PA-C [address] [place] [address] PCP - General Internal Medicine 07/05/20 documented as of this encounter
--- OUTSIDE RECORDS SUMMARY | 2024-09-03 12:57 | XMS_ITS | Encounter Summary ---
Author Organization [facility] Address [facility] [place] [address] Care Team Providers Care Reel Tender Name Role Phone Wale Shaver PA-C Primary Care Provider [phone] Encounter Details Date Type Department Care Team Description 05/17/2022 Aquaculture And Fisheries Professor Report Medical Records [address] [place] [address] Liang To MD Social History Tobacco Use [...] documented as of this encounter Care Teams Reel Tender Relationship Specialty Start Date End Date Wale Shaver PA-C [address] [place] [address] PCP - General Internal Medicine 07/05/20 documented as of this encounter
--- OUTSIDE RECORDS SUMMARY | 2024-09-03 12:57 | XMS_ITS | Encounter Summary ---
Author Organization [facility] Address [facility] [place] [address] Care Team Providers Care Comfort Advisor Name Role Phone Wale Shaver PA-C Primary Care Provider [phone] Encounter Details Date Type Department Care Team Description 11/30/2022 Machine Repairer Report Medical Records [address] [place] [address] Abstract, Provider Social History Tobacco Use Types [...] documented as of this encounter Care Teams Comfort Advisor Relationship Specialty Start Date End Date Wale Shaver PA-C [address] [place] [address] PCP - General Internal Medicine 07/05/20 documented as of this encounter
--- OUTSIDE RECORDS SUMMARY | 2024-09-03 12:57 | XMS_ITS | Encounter Summary ---
Author Organization [facility] Address [address] [place] [address] Care Team Providers Care Roll Out Manager Name Role Phone Sudheer Bermudez MD Primary Care Provider + [phone] Prince Goodrich Primary Care Provider [facility] Sudheer Bermudez MD Primary Care Provider + [phone] Noe Jones MD Primary Care Provider [phone] Wale Shaver PA-C Primary Care Provider [phone] Encounter Details Date Type Department Care Team Description 04/30/2019 Satellite Television Installer Report Medical Records [address] [place] [address] Adan Alfonso MD Social History Tobacco Use [...] documented as of this encounter Care Teams Roll Out Manager Relationship Specialty Start Date End Date Sudheer Bermudez MD [address] [place] [address] PCP - General Internal Medicine 09/17/17 09/16/19 Prince Goodrich [address] [place] [address] PCP - General Internal Medicine 09/17/19 03/17/20 Sudheer Bermudez MD [address] [place] [address] PCP - General Internal Medicine 03/18/20 06/24/20 Noe Jones MD [address] [place] [address] PCP - General Internal Medicine 06/25/20 07/04/20 Wale Shaver PA-C [address] [place] [address] PCP - General Internal Medicine 07/05/20 documented as of this encounter
--- OUTSIDE RECORDS SUMMARY | 2024-09-03 12:57 | XMS_ITS | Encounter Summary ---
Author Organization [facility] Address [facility] [place] [address] Care Team Providers Care Scraper Meat Name Role Phone Prince Goodrich Primary Care Provider Sudheer Stark MD Primary Care Provider + [phone] Noe Jones MD Primary Care Provider [phone] Wale Shaver PA-C Primary Care Provider [phone] Reason for Visit * Reason Onset Date Comments Provider Call Back 12/03/2019 Encounter Details Date Type Department Care Team Description 12/03/2019 Telephone Dermatology - [address] [phone] Angelita Coburn PA-C Provider Call Back Social History Tobacco Use [...] encounter Miscellaneous Notes * Telephone Encounter - Virginia Shields M.A. - 12/03/2019 10:14 AM EDT FYI: Scheduled pt to come in tomorrow at 9:45a.m * Telephone Encounter - Angelita Gonzalez - 12/03/2019 9:44 AM EDT Patient has been outside just about every day this week. States she puts sunscreen on her lower legs while she was outside, but states that the last few days they have been really red, warm to touch and painful. She is not sure if she is having a reaction to something, or if she was bitten and it is infected. Would like to see you. Please advise. documented in this encounter Plan of Treatment Not on file documented as of this encounter Visit Diagnoses Not on filedocumented in this encounter Additional Health Concerns Infection Onset Date Last Indicated Resolved Time COVID-19 07/19/2022 07/20/2022 08/14/2023 11:4 2 AM EST documented as of this encounter Care Teams Scraper Meat Relationship Specialty Start Date End Date Prince Goodrich PCP - General Internal Medicine 09/17/19 03/17/20 Sudheer Bermudez MD [address] [place] [address] PCP - General Internal Medicine 03/18/20 06/24/20 Noe Jones MD [address] [place] [address] PCP - General Internal Medicine 06/25/20 07/04/20 Wale Shaver PA-C [address] [place] [address] PCP - General Internal Medicine 07/05/20 documented as of this encounter
--- OUTSIDE RECORDS SUMMARY | 2024-09-03 12:57 | XMS_ITS | Encounter Summary ---
Author Organization [facility] Address [address] [place] [address] Care Team Providers Care Astrophysics Professor Name Role Phone Wale Shaver PA-C Primary Care Provider [phone] Reason for Visit * Reason Comments E-prescribe Rx Request Encounter Details Date Type Department Care Team Description 12/29/2021 Refill Adult Medicine [facility] [address] [place] [address] Wale Shaver PA-C [address] [place] [address] E-prescribe Rx Request Social History Tobacco Use [...] encounter Miscellaneous Notes * Telephone Encounter - Danny Lockwood M.A. - 12/29/2021 3:53 PM EDT Lab Results Component Value Date NA 142 08/23/2021 K 4.1 08/23/2021 CO2 26 08/23/2021 CL 106 08/23/2021 BUN 11 08/23/2021 CREAT 0.71 08/23/2021 GLU 146 08/23/2021 CA 9.6 08/23/2021 GFR > 60 08/23/2021 JAHAIRA 09/27/2021 w/Maryjo Espinosa JAHAIRA w/PCP was telemed 08/26/2021 Next OV 01/13/2022 w/PCP * Telephone Encounter - Giovanna Baires - 12/29/2021 3:28 PM EDT Patient would like script to be: E-PRESCRIBED/FAXED TO PHARMACY WHEN WAS THE PATIENT'S LAST APPOINTMENT IN ADULT MEDICINE? 09/27/21 WHEN WAS THE LAST TIME THE PATIENT SAW THEIR PCP? 08/26/21 Does patient have an upcoming appointment? Yes 01/13/22 (THE MEDICATION REQUESTED IS ON THE MED LIST ABOVE) All of the medications requested were on the CURRENT MEDS list Did you check the Pharmacy information above?: YES Patient wants: 30 -day supply Is this a mail order prescription request ? NO If the refill is from a FAXED refill request what is the RX # listed on the fax? N/A Patients current insurance carrier is: [place] / Product Type: MED[place]ARE [id number] documented in this encounter Plan of Treatment Not on file documented as of this encounter Visit Diagnoses Not on filedocumented in this encounter Additional Health Concerns Infection Onset Date Last Indicated Resolved Time COVID-19 07/19/2022 07/20/2022 08/14/2023 11:4 2 AM EST documented as of this encounter Care Teams Astrophysics Professor Relationship Specialty Start Date End Date Wale Shaver PA-C [address] [place] [address] PCP - General Internal Medicine 07/05/20 documented as of this encounter
--- OUTSIDE RECORDS SUMMARY | 2024-09-03 12:57 | XMS_ITS | Encounter Summary ---
Author Organization [facility] Address [address] [place] [address] Care Team Providers Care Public Policy Manager Name Role Phone Ajay Norton MD Primary Care Provider Daniel Shabazz Primary Care Provider Gerry Craig MD Primary Care Provider [phone] Sudheer Bermudez MD Primary Care Provider + [phone] Prince Goodrich Primary Care Provider UnavailSudheer Leo MD Primary Care Provider + [phone] Noe Jones MD Primary Care Provider +[phone] Wale Shaver PA-C Primary Care Provider +[phone] Encounter Details Date Type Department Care Team Description 04/05/2015 Fats And Oils Loader Report Medical Records [address] [place] [address] Ruben Morfin Social History Tobacco Use Types [...] as of this encounter Care Teams Public Policy Manager Relationship Specialty Start Date End Date Ajay Norton MD PCP - General Internal Medicine 03/08/15 05/10/15 Daniel Chew PCP - General Internal Medicine 05/11/15 06/26/17 Gerry Munoz MD [address] [place] [address] PCP - General Internal Medicine 06/27/17 09/16/17 Sudheer Bermudez MD [address] [place] [address] 14512 PCP - General Internal Medicine 09/17/17 09/16/19 Prince Goodrich [address] [place] [address] 49164 PCP - General Internal Medicine 09/17/19 03/17/20 Sudheer Bermudez MD [address] [place] [address] 038[address] PCP - General Internal Medicine 03/18/20 06/24/20 Noe Jones MD [address] [place] [address] PCP - General Internal Medicine 06/25/20 07/04/20 Wale Shaver PA-C [address] [place] [address] PCP - General Internal Medicine 07/05/20 documented as of this encounter
--- OUTSIDE RECORDS SUMMARY | 2024-09-03 12:57 | XMS_ITS | Encounter Summary ---
Author Organization [facility] Address [facility] [place] [address] Care Team Providers Care Gasket Supervisor Name Role Phone Sudheer Bermudez MD Primary Care Provider + [phone] Prince Goodrich Primary Care Provider [facility] Sudheer Bermudez MD Primary Care Provider + [phone] Noe Jones MD Primary Care Provider +[phone] Wale Shaver PA-C Primary Care Provider +[phone] Reason for Visit * Reason Comments E-prescribe Rx Request Encounter Details Date Type Department Care Team Description 06/23/2019 Refill Adult Medicine [address] [id number] Sudheer Bermudez MD [address] [place] [address] [phone] E-prescribe Rx Request Social History Tobacco Use [...] encounter Miscellaneous Notes * Telephone Encounter - Kyra Hermanno - 06/24/2019 9:13 AM EST Patient would like script to be: E-PRESCRIBED/FAXED TO PHARMACY WHEN WAS THE PATIENT'S LAST APPOINTMENT IN ADULT MEDICINE? 05/28/19 WHEN WAS THE LAST TIME THE PATIENT SAW THEIR PCP? 09/06/18 Does patient have an upcoming appointment? Yes (THE MEDICATION REQUESTED IS ON THE MED [...] N/A Patients current insurance carrier is: Payor: MEDICARE-[employer] / [place] / Product Type: MEDICARE [id number] documented in this encounter Plan of Treatment Not on file documented as of this encounter Visit Diagnoses Not on filedocumented in this encounter Additional Health Concerns Infection Onset Date Last Indicated Resolved Time COVID-19 07/19/2022 07/20/2022 08/14/2023 11:4 2 AM EST documented as of this encounter Care Teams Gasket Supervisor Relationship Specialty Start Date End Date Sudheer Bermudez MD [address] [place] [address] PCP - General Internal Medicine 09/17/17 09/16/19 Prince Goodrich [address] [place] [address] PCP - General Internal Medicine 09/17/19 03/17/20 Sudheer Bermudez MD [address] [place] [address] 604[address] PCP - General Internal Medicine 03/18/20 06/24/20 Noe Jones MD [address] [place] [address] PCP - General Internal Medicine 06/25/20 07/04/20 Wale Shaver PA-C [address] [place] [address] PCP - General Internal Medicine 07/05/20 documented as of this encounter
--- OUTSIDE RECORDS SUMMARY | 2024-09-03 12:57 | XMS_ITS | Encounter Summary ---
Author Organization [facility] Address [address] [place] [address] Care Team Providers Care Boardinghouse Keeper Name Role Phone Sudheer Bermudez MD Primary Care Provider + [phone] Prince Goodrich Primary Care Provider [facility] Sudheer Bermudez MD Primary Care Provider + [phone] Noe Jones MD Primary Care Provider + [phone] Wale Shaver PA-C Primary Care Provider +[phone] Encounter Details Date Type Department Care Team Description 08/29/2019 Release of Information Medical Records [address] [place] [address] Abstract, Provider Social History Tobacco Use Types [...] documented as of this encounter Care Teams Boardinghouse Keeper Relationship Specialty Start Date End Date Sudheer Bermudez MD [address] [place] [address] PCP - General Internal Medicine 09/17/17 09/16/19 Prince Goodrich [address] [place] [address] PCP - General Internal Medicine 09/17/19 03/17/20 Sudheer Bermudez MD [address] [place] [address] PCP - General Internal Medicine 03/18/20 06/24/20 Noe Jones MD [address] [place] [address] PCP - General Internal Medicine 06/25/20 07/04/20 Wale Shaver PA-C [address] [place] [address] PCP - General Internal Medicine 07/05/20 documented as of this encounter
--- OUTSIDE RECORDS SUMMARY | 2024-09-03 12:57 | XMS_ITS | Encounter Summary ---
Author Organization [facility] Address [facility]9 [place] [address] Care Team Providers Care Bacteriologist Industrial Name Role Phone Prince Goodrich Primary Care Provider Theresa Sudheer Hair MD Primary Care Provider [phone] Noe Jones MD Primary Care Provider + [phone] Wale Shaver PA-C Primary Care Provider +[phone] Encounter Details Date Type Department Care Team Description 09/29/2019 Solid State Tester Report Medical Records [address] [place] [address] Liang To MD Social History Tobacco Use [...] documented as of this encounter Care Teams Bacteriologist Industrial Relationship Specialty Start Date End Date Prince Goodrich PCP - General Internal Medicine 09/17/19 03/17/20 Sudheer Bermudez MD [address] [place] [address] PCP - General Internal Medicine 03/18/20 06/24/20 Noe Jones, [address] [place] [address] PCP - General Internal Medicine 06/25/20 07/04/20 Wale Shaver PA-C [address] [place] [address] PCP - General Internal Medicine 07/05/20 documented as of this encounter
--- OUTSIDE RECORDS SUMMARY | 2024-09-03 12:57 | XMS_ITS | Encounter Summary ---
Author Organization [facility] Address [address] [place] [address] Care Team Providers Care Fire Warden Name Role Phone Daniel Chew Primary Care Provider UnavailGerry Hawkins MD Primary Care Provider [phone] Sudheer Bermudez MD Primary Care Provider + [phone] Prince Goodrich Primary Care Provider Unavaila Sudheer Hair MD Primary Care Provider + [phone] Noe Jones MD Primary Care Provider + [phone] Wale Shaver PA-C Primary Care Provider +[phone] Encounter Details Date Type Department Care Team Description 07/05/2015 Walking Dragline Operator Report Medical Records [address] [place] [address] Clay Vang Social History Tobacco Use Types [...] documented as of this encounter Care Teams Fire Warden Relationship Specialty Start Date End Date Daniel Chew PCP - General Internal Medicine 05/11/15 06/26/17 Gerry Munoz MD [address] [place] [address] [phone] PCP - General Internal Medicine 06/27/17 09/16/17 Sudheer Bermudez MD [address] [place] [address] PCP - General Internal Medicine 09/17/17 09/16/19 Prince Goodrich [address] [place] [address] PCP - General Internal Medicine 09/17/19 03/17/20 Sudheer Bermudez MD [address] [place] [address] PCP - General Internal Medicine 03/18/20 06/24/20 Noe Jones, [address] [place] [address] PCP - General Internal Medicine 06/25/20 07/04/20 Wale Shaver PA-C [address] [place] [address] PCP - General Internal Medicine 07/05/20 documented as of this encounter
--- OUTSIDE RECORDS SUMMARY | 2024-09-03 12:57 | XMS_ITS | Encounter Summary ---
Author Organization [facility] Address [facility]9 [place] [address] Care Team Providers Care Keyboarding Teacher Name Role Phone Wale Shaver PA-C Primary Care Provider [phone] Encounter Details Date Type Department Care Team Description 08/22/2023 Telephone INFECTIOUS DISEASE SP[facility] [address] [place] [address] Cm Rivera MD 175 [facility] Anil [address] [place] [address] Social History Tobacco Use Types Packs/Day Years [...] encounter Miscellaneous Notes * Telephone Encounter - Radha Cole MA - 08/29/2023 11:30 AM EST Booked * Telephone Encounter - Radha Cole MA - 08/29/2023 9:52 AM EST Lvm to call back [place] to schedule appt. * Telephone Encounter - Radha Cole MA - 08/22/2023 1:21 PM EST Please review for scheduling documented in this encounter Plan of Treatment Not on file documented as of this encounter Visit Diagnoses Not on filedocumented in this encounter Care Teams Keyboarding Teacher Relationship Specialty Start Date End Date Wale Shaver PA-C [address] [place] [address] PCP - General Internal Medicine 07/05/20 documented as of this encounter
--- OUTSIDE RECORDS SUMMARY | 2024-09-03 12:57 | XMS_ITS | Clinical Summary ---
Author Organization [facility] Address [address] [place] [address] Care Team Providers Care Small Stock Facer Name Role Phone Wale Shaver PA-C Primary [...] age to complete this topic Care Teams Small Stock Facer Relationship Specialty Start Date End Date Wale Shaver, DAQUANC PCP - General Medical Services 11/15/20
--- OUTSIDE RECORDS SUMMARY | 2024-09-03 12:57 | XMS_ITS | Encounter Summary ---
Author Organization [facility] Address [facility]9 [place] [address] Care Team Providers Care Link Trainer Maintenance Worker Name Role Phone Sudheer Bermudez MD Primary Care Provider + [phone] Prince Goodrich Primary Care Provider [facility] Sud[facility] Bermudez MD Primary Care Provider + [phone] Noe Jones MD Primary Care Provider +[phone] Wale Shaver PA-C Primary Care Provider [phone] Encounter Details Date Type Department Care Team Description 07/15/2019 Orders Only MRI - [address] [address] Wale Shaver PA-C [address] [place] [address] [phone] Spondylosis of lumbar region without myelopathy or radiculopathy Social History Tobacco Use Types Packs/Day Years [...] on file documented as of this encounter Procedures Procedure Name Priority Date/Time Associated Diagnosis Comments MRI OF LUMBAR SPINE NO CONTRAST Routine 07/11/2019 Spondylosis of lumbar region without myelopathy or radiculopathy documented in this encounter Results * MRI OF LUMBAR SPINE NO CONTRAST (07/11/2019) Wale Shaver PA-C MRI [facility] [address] [place] [address] documented in this encounter Visit Diagnoses Diagnosis Spondylosis of lumbar region without myelopathy or radiculopathy Lumbosacral spondylosis without myelopathy documented in this encounter Additional Health Concerns Infection Onset Date Last Indicated Resolved Time COVID-19 07/19/2022 07/20/2022 08/14/2023 11:4 2 AM EST documented as of this encounter Care Teams Link Trainer Maintenance Worker Relationship Specialty Start Date End Date Sudheer Bermudez MD [address] [place] [address]093 PCP - General Internal Medicine 09/17/17 09/16/19 Prince Goodrich [address] [place] [address] PCP - General Internal Medicine 09/17/19 03/17/20 Sudheer Bermudez MD [address] [place] [address] PCP - General Internal Medicine 03/18/20 06/24/20 Noe Jones MD [address] [place] [address] PCP - General Internal Medicine 06/25/20 07/04/20 Wale Shaver PA-C [address] [place] [address] PCP - General Internal Medicine 07/05/20 documented as of this encounter
--- OUTSIDE RECORDS SUMMARY | 2024-09-03 12:57 | XMS_ITS | Encounter Summary ---
Author Organization [facility] Address [facility]9 [place] [address] Care Team Providers Care Lathe Puller Name Role Phone Prince Goodrich Primary Care Provider Theresa Sudheer Hair MD Primary Care Provider [phone] Noe Jones MD Primary Care Provider + [phone] Wale Shaver PA-C Primary Care Provider +[phone] Encounter Details Date Type Department Care Team Description 02/19/2020 Control Systems Engineer Report Medical Records [address] [place] [address] Jaxson Dias MD Social History Tobacco Use [...] documented as of this encounter Care Teams Lathe Puller Relationship Specialty Start Date End Date Prince Goodrich PCP - General Internal Medicine 09/17/19 03/17/20 Sudheer Bermudez MD [address] [place] [address] PCP - General Internal Medicine 03/18/20 06/24/20 Noe Jones, [address] [place] [address] PCP - General Internal Medicine 06/25/20 07/04/20 Wale Shaver PA-C [address] [place] [address] PCP - General Internal Medicine 07/05/20 documented as of this encounter
--- OUTSIDE RECORDS SUMMARY | 2024-09-03 12:57 | XMS_ITS | Encounter Summary ---
Author Organization [facility] Address [address] [place] [address] Care Team Providers Care Healthcare Marketer Name Role Phone Daniel Chew Primary Care Provider UnavailGerry Hawkins MD Primary Care Provider [phone] Sudheer Bermudez MD Primary Care Provider + [phone] Prince Goodrich Primary Care Provider Unavaila Sudheer Hair MD Primary Care Provider + [phone] Noe Jones MD Primary Care Provider + [phone] Wale Shaver PA-C Primary Care Provider +[phone] Encounter Details Date Type Department Care Team Description 06/23/2015 [facility] Medical Records [address] [place] [address] Arjun Bergeron MD Social History Tobacco Use [...] documented as of this encounter Care Teams Healthcare Marketer Relationship Specialty Start Date End Date Daniel Chew PCP - General Internal Medicine 05/11/15 06/26/17 Gerry Munoz MD [address] [place] [address] PCP - General Internal Medicine 06/27/17 09/16/17 Sudheer Bermudez MD [address] [place] [address] PCP - General Internal Medicine 09/17/17 09/16/19 Prince Goodrich [address] [place] [address] PCP - General Internal Medicine 09/17/19 03/17/20 Sudheer Bermudez MD [address] [place] [address] PCP - General Internal Medicine 03/18/20 06/24/20 Noe Jones, [address] [place] [address] PCP - General Internal Medicine 06/25/20 07/04/20 Wale Shaver PA-C [address] [place] [address] PCP - General Internal Medicine 07/05/20 documented as of this encounter
--- OUTSIDE RECORDS SUMMARY | 2024-09-03 12:57 | XMS_ITS | Encounter Summary ---
Author Organization [facility] Address [facility] [place] [address] Care Team Providers Care Stone Sawyer Name Role Phone Wale Shaver PA-C Primary Care Provider [phone] Encounter Details Date Type Department Care Team Description 01/24/2023 Commercial Mortgage Broker Report Medical Records [address] [place] [address] Abstract, Provider Social History Tobacco Use Types [...] documented as of this encounter Care Teams Stone Sawyer Relationship Specialty Start Date End Date Wale Shaver PA-C [address] [place], [place] [phone] PCP - General Internal Medicine 07/05/20 documented as of this encounter
--- OUTSIDE RECORDS SUMMARY | 2024-09-03 12:57 | XMS_ITS | Encounter Summary ---
Author Organization [facility] Address [facility] [place] [address] Care Team Providers Care Janitorial Maintenance Worker Name Role Phone Wale Shaver PA-C Primary Care Provider [phone] Encounter Details Date Type Department Care Team Description 09/14/2020 Venereal Disease Investigator Report Medical Records [address] [place] [address] Liang To MD Social History Tobacco Use [...] have Coronavirus / COVID-19? No / Unsure 09/15/2020 9:33 AM EST documented as of this encounter Plan of Treatment Not on file documented as of this encounter Visit Diagnoses Not on filedocumented in this encounter Additional Health Concerns Infection Onset Date Last Indicated Resolved Time COVID-19 07/19/2022 07/20/2022 08/14/2023 11:4 2 AM EST documented as of this encounter Care Teams Janitorial Maintenance Worker Relationship Specialty Start Date End Date Wale Shaver PA-C [address] [place] [address] PCP - General Internal Medicine 07/05/20 documented as of this encounter
--- OUTSIDE RECORDS SUMMARY | 2024-09-03 12:57 | XMS_ITS | Encounter Summary ---
Author Organization [facility] Address [address] [place] [address] Care Team Providers Care Postdoctoral Research Fellow Name Role Phone Daniel Chew Primary Care Provider UnavailGerry Hawkins MD Primary Care Provider [phone] Sudheer Bermudez MD Primary Care Provider + [phone] Prince Goodrich Primary Care Provider Unavaila Sudheer Hair MD Primary Care Provider + [phone] Noe Jones MD Primary Care Provider + [phone] Wale Shaver PA-C Primary Care Provider +[phone] Encounter Details Date Type Department Care Team Description 10/28/2015 Washroom Cleaner Report Medical Records [address] [place] [address] Clay Vang Social History Tobacco Use Types [...] documented as of this encounter Care Teams Postdoctoral Research Fellow Relationship Specialty Start Date End Date Daniel Chew PCP - General Internal Medicine 05/11/15 06/26/17 Gerry Munoz MD [address] [place] [address] [id number] PCP - General Internal Medicine 06/27/17 09/16/17 Sudheer Bermudez MD [address] [place] [address] PCP - General Internal Medicine 09/17/17 09/16/19 Prince Goodrich [address] [place] [address] PCP - General Internal Medicine 09/17/19 03/17/20 Sudheer Bermudez MD [address] [place] [address] PCP - General Internal Medicine 03/18/20 06/24/20 Noe Jones, [address] [place] [address] PCP - General Internal Medicine 06/25/20 07/04/20 Wale Shaver PA-C [address] [place] [address] PCP - General Internal Medicine 07/05/20 documented as of this encounter
--- OUTSIDE RECORDS SUMMARY | 2024-09-03 12:57 | XMS_ITS | Encounter Summary ---
Author Organization [facility] Address [address] [place] [address] Care Team Providers Care Dealer Sales Rep Name Role Phone Sudheer Bermudez MD Primary Care Provider + [phone] Prince Goodrich Primary Care Provider [facility] Sudheer Bermudez MD Primary Care Provider + [phone] Noe Jones MD Primary Care Provider + [phone] Wale Shaver PA-C Primary Care Provider [phone] Encounter Details Date Type Department Care Team Description 05/15/2019 Cma Report Medical Records [address] [place] [address] Sam Ellis MD Social History Tobacco Use Types Packs/Day [...] documented as of this encounter Care Teams Dealer Sales Rep Relationship Specialty Start Date End Date Sudheer Bermudez MD [address] [place] [address] PCP - General Internal Medicine 09/17/17 09/16/19 Prince Goodrich [address] [place] [address] PCP - General Internal Medicine 09/17/19 03/17/20 Sudheer Bermudez MD [address] [place] [address] PCP - General Internal Medicine 03/18/20 06/24/20 Noe Jones MD [address] [place] [address] PCP - General Internal Medicine 06/25/20 07/04/20 Wale Shaver PA-C [address] [place] [address] PCP - General Internal Medicine 07/05/20 documented as of this encounter
--- OUTSIDE RECORDS SUMMARY | 2024-09-03 12:57 | XMS_ITS | Encounter Summary ---
Author Organization [facility] Address [facility]9 [place] [address] Care Team Providers Care Basic Sciences Dean Name Role Phone Sudheer Bermudez MD Primary Care Provider + [phone] Noe Jones MD Primary Care Provider + [phone] Wale Shaver PA-C Primary Care Provider [phone] Encounter Details Date Type Department Care Team Description 06/03/2020 [place] Auditor Report Medical Records [address] [place] [address] Clay Vang Social History Tobacco Use Types [...] have Coronavirus / COVID-19? No / Unsure 05/24/2020 9:59 AM EST documented as of this encounter Plan of Treatment Not on file documented as of this encounter Visit Diagnoses Not on filedocumented in this encounter Additional Health Concerns Infection Onset Date Last Indicated Resolved Time COVID-19 07/19/2022 07/20/2022 08/14/2023 11:4 2 AM EST documented as of this encounter Care Teams Basic Sciences Dean Relationship Specialty Start Date End Date Sudheer Bermudez MD [address] [place] [address] PCP - General Internal Medicine 03/18/20 06/24/20 Noe Jones, [address] [place] [address] PCP - General Internal Medicine 06/25/20 07/04/20 Wale Shaver PA-C [address] [place] [address] PCP - General Internal Medicine 07/05/20 documented as of this encounter
--- OUTSIDE RECORDS SUMMARY | 2024-09-03 12:57 | XMS_ITS | Encounter Summary ---
Author Organization [facility] Address [address] [place] [address] Care Team Providers Care Esl Tutor Name Role Phone Sudheer Bermudez MD Primary Care Provider + [phone] Prince Goodrich Primary Care Provider [facility] Sudheer Bermudez MD Primary Care Provider + [phone] Noe Jones MD Primary Care Provider + [phone] Wale Shaver PA-C Primary Care Provider [phone] Encounter Details Date Type Department Care Team Description 05/13/2019 Armed Security Guard Report Medical Records [address] [place] [address] Abstract, Provider Social History Tobacco Use Types [...] documented as of this encounter Care Teams Esl Tutor Relationship Specialty Start Date End Date Sudheer Bermudez MD [address] [place] [address] [id number] PCP - General Internal Medicine 09/17/17 09/16/19 Prince Goodrich [address] [place] [address] PCP - General Internal Medicine 09/17/19 03/17/20 Sudheer Bermudez MD [address] [place] [address] PCP - General Internal Medicine 03/18/20 06/24/20 Noe Jones MD [address] [place] [address] PCP - General Internal Medicine 06/25/20 07/04/20 Wale Shaver PA-C [address] [place] [address] PCP - General Internal Medicine 07/05/20 documented as of this encounter
--- OUTSIDE RECORDS SUMMARY | 2024-09-03 12:57 | XMS_ITS | Encounter Summary ---
Author Organization [facility] Address [address] [place] [address] Care Team Providers Care Brooch And Bracelet Maker Name Role Phone Sudheer Bermudez MD Primary Care Provider + [phone] Prince Goodrich Primary Care Provider [facility] Sudheer Bermudez MD Primary Care Provider + [phone] Noe Jones MD Primary Care Provider + [phone] Wale Shaver PA-C Primary Care Provider [phone] Encounter Details Date Type Department Care Team Description 05/06/2019 Forge Hand Report Medical Records [address] [place] [address] Abstract, Provider Social History Tobacco Use Types [...] documented as of this encounter Care Teams Brooch And Bracelet Maker Relationship Specialty Start Date End Date Sudheer Bermudez MD [address] [place] [address] [id number] PCP - General Internal Medicine 09/17/17 09/16/19 Prince Goodrich [address] [place] [address] PCP - General Internal Medicine 09/17/19 03/17/20 Sudheer Bermudez MD [address] [place] [address] PCP - General Internal Medicine 03/18/20 06/24/20 Noe Jones MD [address] [place] [address] PCP - General Internal Medicine 06/25/20 07/04/20 Wale Shaver PA-C [address] [place] [address] PCP - General Internal Medicine 07/05/20 documented as of this encounter
--- OUTSIDE RECORDS SUMMARY | 2024-09-03 12:57 | XMS_ITS | Encounter Summary ---
Author Organization [facility] Address [address] [place] [address] Care Team Providers Care Demographic Analyst Name Role Phone Sudheer Bermudez MD Primary Care Provider + [phone] Prince Goodrich Primary Care Provider [facility] Sudheer Bermudez MD Primary Care Provider + [phone] Noe Jones MD Primary Care Provider + [phone] Wale Shaver PA-C Primary Care Provider [phone] Encounter Details Date Type Department Care Team Description 03/05/2018 Prepress Specialist Report Medical Records [address] [place] [address] Abstract, Provider Social History Tobacco Use Types [...] documented as of this encounter Care Teams Demographic Analyst Relationship Specialty Start Date End Date Sudheer Bermudez MD [address] [place] [address] [phone] PCP - General Internal Medicine 09/17/17 09/16/19 Prince Goodrich [address] [place] [address] PCP - General Internal Medicine 09/17/19 03/17/20 Sudheer Bermudez MD [address] [place] [address] PCP - General Internal Medicine 03/18/20 06/24/20 Noe Jones MD [address] [place] [address] PCP - General Internal Medicine 06/25/20 07/04/20 Wale Shaver PA-C [address] [place] [address] PCP - General Internal Medicine 07/05/20 documented as of this encounter
--- OUTSIDE RECORDS SUMMARY | 2024-09-03 12:57 | XMS_ITS | Encounter Summary ---
Author Organization [facility] Address [address] [place] [address] Care Team Providers Care Chief Radiologic Technologist Name Role Phone Wale Shaver PA-C Primary Care Provider +1 [phone] Reason for Visit * Reason Onset Date Comments Prior Authorization 08/20/2023 Nifedipine Encounter Details Date Type Department Care Team Description 08/20/2023 Pt. Non Urgent Medical Question Adult Medicine [address] [address] Wale Shaver PA-C [address] [place] [address] Social History Tobacco Use Types Packs/Day Years Used Date Smoking Tobacco: Never Smokeless Tobacco: Never Alcohol Use Standard Drinks/Week Comments No 0 (1 standard drink = 0.6 oz pur e alcohol) Sex Assigned at Date Recorded Not on file Job Start Date Occupation Industry Not on file Not on file Not on file documented as of this encounter Progress Notes * Rina Slade M.A. - 08/20/2023 5:00 PM EST Wale, Please see Mychart attachments to route to [facility] if appropriate, thank you. documented in this encounter Miscellaneous Notes * Telephone Encounter - Rina Slade M.A. - 08/20/2023 4:59 PM ESTFrom: Iva Cervantes To: Vashti Shaver Sent: 08/20/2023 4:49 PM EST Subject: Good afternoon I just received a letter from the insurance company that the nifedipine tab 30 mg er is not coveredby the insurance company how do we fight this because it is working a lot better then the amlodipine was. I have attached the cover letter from the insurance company. Any assistance would be greatly appreciated. Thank you Iva cervantes 1975 documented in this encounter Plan of Treatment Not on file documented as of this encounter Visit Diagnoses Not on filedocumented in this encounter Care Teams Chief Radiologic Technologist Relationship Specialty Start Date End Date Wale Shaver PA-C [address] [place] [address] PCP - General Internal Medicine 07/05/20 documented as of this encounter
--- OUTSIDE RECORDS SUMMARY | 2024-09-03 12:57 | XMS_ITS | Encounter Summary ---
Author Organization [facility] Address [address] [place] [address] Care Team Providers Care Still Operator Batch Or Continuous Name Role Phone Daniel Chew Primary Care Provider UnavailGerry Hawkins MD Primary Care Provider [phone] Sudheer Bermudez MD Primary Care Provider + [phone] Prince Goodrich Primary Care Provider Unavaila Sudheer Hair MD Primary Care Provider + [phone] Noe Jones MD Primary Care Provider + [phone] Wale Shaver PA-C Primary Care Provider + [phone] Encounter Details Date Type Department Care Team Description 05/19/2016 [facility] Medical Records [address] [place] [address] Sam Jimenes MD Social History Tobacco Use Types Packs/Day [...] documented as of this encounter Care Teams Still Operator Batch Or Continuous Relationship Specialty Start Date End Date Daniel Chew PCP - General Internal Medicine 05/11/15 06/26/17 Gerry Munoz MD [address] [place] [address] PCP - General Internal Medicine 06/27/17 09/16/17 Sudheer Bermudez MD [address] [place] [address] PCP - General Internal Medicine 09/17/17 09/16/19 Prince Goodrich [address] [place] [address] PCP - General Internal Medicine 09/17/19 03/17/20 Suhdeer Bermudez MD [address] [place] [address] PCP - General Internal Medicine 03/18/20 06/24/20 Noe Jones MD [address] [place] [address] PCP - General Internal Medicine 06/25/20 07/04/20 Wale Shaver PA-C [address] [place] [address] PCP - General Internal Medicine 07/05/20 documented as of this encounter
--- OUTSIDE RECORDS SUMMARY | 2024-09-03 12:57 | XMS_ITS | Encounter Summary ---
Author Organization [facility] Address [address] [place] [address] Care Team Providers Care Resource Recovery Engineer Name Role Phone Prince Goodrich Primary Care Provider Sudheer Stark MD Primary Care Provider + [phone] Noe Jones MD Primary Care Provider [phone] Wale Shaver PA-C Primary Care Provider [phone] Encounter Details Date Type Department Care Team Description 03/13/2020 Pt. Non Urgent Medical Question Adult Medicine [facility] - [address] [address] Wale Shaver PA-C [address] [place] [address] [phone] Type 2 diabetes mellitus without complication, without long-term current use of insulin (HCC); Rheumatoid arthritis of multiple sites with negative rheumatoid factor (HCC); Acute URI; Mild intermittent asthma without complication Social History Tobacco Use Types Packs/Day Years [...] encounter Miscellaneous Notes * Telephone Encounter - Karolina Emmanuel C.M.A. - 03/15/2020 8:52 AM EDTFrom: Iva Cervantes To: Wale Shaver PA-C Sent: 03/13/2020 10:53 PM EDT Subject: Medicine refills I need refills on the following medicine I would like them sent to [facility] in [place] Metformin 1000 mg tablets 1 in the am and 1 in the pm Potassium cl er 10 meq tablet 1 in the am 1 in the pm Ropinirole 0.25 mg tablets take 3 at bedtime Glyburide 2.5 mg tablets 1 in the am and 2 in the pm Pioglitazone 30 mg tablets take 1 at night Amlodiine besulate 5 mg tablet 1 at night Thank you if you have any questions [phone] Iva cervantes 1975 documented in this encounter [...] documented as of this encounter Care Teams Resource Recovery Engineer Relationship Specialty Start Date End Date Prince Goodrich PCP - General Internal Medicine 09/17/19 03/17/20 Sudheer Bermudez MD [address] [place] [address] PCP - General Internal Medicine 03/18/20 06/24/20 Noe Jones MD [address] [place] [address] PCP - General Internal Medicine 06/25/20 07/04/20 Wale Shaver PA-C [address] [place] [address] PCP - General Internal Medicine 07/05/20 documented as of this encounter
--- OUTSIDE RECORDS SUMMARY | 2024-09-03 12:57 | XMS_ITS | Encounter Summary ---
Author Organization [facility] Address [address] [place] [address] Care Team Providers Care Area Captain Name Role Phone Daniel Chew Primary Care Provider UnavailGerry Hawkins MD Primary Care Provider [phone] Sudheer Bermudez MD Primary Care Provider + [phone] Prince Goodrich Primary Care Provider Unavaila Sudheer Hair MD Primary Care Provider + [phone] Noe Jones MD Primary Care Provider + [phone] Wale Shaver PA-C Primary Care Provider [phone] Encounter Details Date Type Department Care Team Description 06/01/2017 Health Program Analyst Report Medical Records [address] [place] [address] Clay Vang Social History Tobacco Use Types [...] documented as of this encounter Care Teams Area Captain Relationship Specialty Start Date End Date Daniel Chew PCP - General Internal Medicine 05/11/15 06/26/17 Gerry Munoz MD [address] [place], [place] [phone] PCP - General Internal Medicine 06/27/17 09/16/17 Sudheer Bermudez MD [address] [place] [address] PCP - General Internal Medicine 09/17/17 09/16/19 Prince Goodrich [address] [place] [address] PCP - General Internal Medicine 09/17/19 03/17/20 Sudheer Bermudez MD [address] [place] [address] PCP - General Internal Medicine 03/18/20 06/24/20 Noe Jones, [address] [place] [address] PCP - General Internal Medicine 06/25/20 07/04/20 Wale Shaver PA-C [address] [place] [address] PCP - General Internal Medicine 07/05/20 documented as of this encounter
--- OUTSIDE RECORDS SUMMARY | 2024-09-03 12:57 | XMS_ITS | Encounter Summary ---
Author Organization [facility] Address [address] [place] [address] Care Team Providers Care Animal Shelter Worker Name Role Phone Wale Shaver PA-C Primary Care Provider [phone] Reason for Visit * Reason Onset Date Comments Faxed Order 02/05/2023 [facility] [id number] Encounter Details Date Type Department Care Team Description 02/05/2023 Telephone Adult Medicine [address] [address] Wale Shaver PA-C [address] [place] [address] Faxed Order ([facility] [id number]) Social History Tobacco Use Types Packs/Day Years [...] documented as of this encounter Care Teams Animal Shelter Worker Relationship Specialty Start Date End Date Wale Shaver PA-C [address] [place] [address] PCP - General Internal Medicine 07/05/20 documented as of this encounter
--- OUTSIDE RECORDS SUMMARY | 2024-09-03 12:57 | XMS_ITS | Encounter Summary ---
Author Organization [facility] Address [facility] [place] [address] Care Team Providers Care Reheater Helper Name Role Phone Sudheer Bermudez MD Primary Care Provider + [phone] Noe Jones MD Primary Care Provider + [phone] Wale Shaver PA-C Primary Care Provider [phone] Encounter Details Date Type Department Care Team Description 03/31/2020 Pt. Non Urgent Medical Question Adult Medicine [address] [address] Wale Shaver PA-C [address] [place] [address] Social History Tobacco Use Types Packs/Day Years [...] have Coronavirus / COVID-19? No / Unsure 04/02/2020 7:34 AM EDT documented as of this encounter Miscellaneous Notes * Telephone Encounter - Nancy Parrish M.A. - 03/31/2020 2:17 PM EDTFrom: Iva Cervantes To: Wale Shaver PA-C Sent: 03/31/2020 1:54 PM EDT Subject: Follow up I tried calling the office but after 15 plus minutes on hold I hung up .. when I saw jay last Sunday she was supposed to put an order in for an ultrasound of a lump on my side and a referral to thefoot doctor I have heard nothing and believe a week is long enough for someone to respond to me ...this is not t he first time I have had trouble trying to call this office and it's getting ridiculous Thanks Iva [phone] documented in this encounter Plan of Treatment Not on file documented as of this encounter Visit Diagnoses Not on filedocumented in this encounter Additional Health Concerns Infection Onset Date Last Indicated Resolved Time COVID-19 07/19/2022 07/20/2022 08/14/2023 11:4 2 AM EST documented as of this encounter Care Teams Reheater Helper Relationship Specialty Start Date End Date Sudheer Bermudez MD [address] [place] [address] PCP - General Internal Medicine 03/18/20 06/24/20 Noe Jones MD [address] [place] [address] PCP - General Internal Medicine 06/25/20 07/04/20 Wale Shaver PA-C [address] [place] [address] PCP - General Internal Medicine 07/05/20 documented as of this encounter
--- OUTSIDE RECORDS SUMMARY | 2024-09-03 12:57 | XMS_ITS | Encounter Summary ---
Author Organization [facility] Address [facility] [place] [address] Care Team Providers Care Citrus Peeler Name Role Phone Wale Shaver PA-C Primary Care Provider [phone] Encounter Details Date Type Department Care Team Description 04/24/2024 Serologist Report Medical Records [address] [place] [address] Abstract, Provider Social History Tobacco Use Types [...] on filedocumented in this encounter Care Teams Citrus Peeler Relationship Specialty Start Date End Date Wale Shaver PA-C [address] [place], [place] [phone] PCP - General Internal Medicine 07/05/20 documented as of this encounter
--- OUTSIDE RECORDS SUMMARY | 2024-09-03 12:57 | XMS_ITS | Encounter Summary ---
Author Organization [facility] Address [facility] [place] [address] Care Team Providers Care Forest Scientist Name Role Phone Gerry Munoz MD Primary Care Provider [phone] Sudheer Bermudez MD Primary Care Provider + [phone] Prince Goodrich Primary Care Provider [facility] Sudheer Bermudez MD Primary Care Provider + [phone] Noe Jones MD Primary Care Provider [phone] Wale Shaver PA-C Primary Care Provider [phone] Encounter Details Date Type Department Care Team Description 2017 Release of Information Medical Records [address] [place] [address] Abstract, Provider Social History Tobacco Use Types [...] documented as of this encounter Care Teams Forest Scientist Relationship Specialty Start Date End Date Gerry Munoz MD [address] [place] [address] [id number] PCP - General Internal Medicine 06/27/17 09/16/17 Sudheer Bermudez MD [address] [place] [address] PCP - General Internal Medicine 09/17/17 09/16/19 Prince Goodrich [address] [place] [address] PCP - General Internal Medicine 09/17/19 03/17/20 Sudheer Bermudez MD [address] [place] [address] PCP - General Internal Medicine 03/18/20 06/24/20 Noe Jones MD [address] [place] [address] PCP - General Internal Medicine 06/25/20 07/04/20 Wale Shaver PA-C [address] [place] [address] PCP - General Internal Medicine 07/05/20 documented as of this encounter
--- OUTSIDE RECORDS SUMMARY | 2024-09-03 12:58 | XMS_ITS | Encounter Summary ---
Author Organization [facility] Address [facility] [place] [address] Care Team Providers Care Learning Operations Specialist Name Role Phone Wale Shaver PA-C Primary Care Provider [phone] Encounter Details Date Type Department Care Team Description 12/17/2023 Pt. Non Urgent Medical Question Adult Medicine [address] [address] Wale Shaver PA-C [address] [place] [address] Social History Tobacco Use Types Packs/Day Years [...] encounter Miscellaneous Notes * Telephone Encounter - Karla Park L.P.N. - 12/17/2023 9:35 AM EDTFrom: Iva Cervantes To: Vashti Shaver Sent: 12/17/2023 7:20 AM EDT Subject: Refills I reached out to [facility] on december 10 regarding increasing the ozempic and have not gotten a response . I have no refills on the script I currently have and just want to know if I can go up to the .5 dosesince I have been back on prednisone for the rheumatoid arthritis flare up??? thanks for your assistance documented in this encounter Plan of Treatment Not on file documented as of this encounter Visit Diagnoses Not on filedocumented in this encounter Care Teams Learning Operations Specialist Relationship Specialty Start Date End Date Wale Shaver PA-C [address] [place] [address] PCP - General Internal Medicine 07/05/20 documented as of this encounter
--- OUTSIDE RECORDS SUMMARY | 2024-09-03 12:58 | XMS_ITS | Encounter Summary ---
Author Organization [facility] Address [facility] [place] [address] Care Team Providers Care Counter Top Maker Name Role Phone Wale Shaver PA-C Primary Care Provider [phone] Encounter Details Date Type Department Care Team Description 02/21/2024 Pt. Non Urgent Medical Question Adult Medicine [address] [address] Wale Shaver PA-C [address] [place] [address] Social History Tobacco Use Types Packs/Day Years [...] on filedocumented in this encounter Care Teams Counter Top Maker Relationship Specialty Start Date End Date Wale Shaver PA-C [address] [place] [address] PCP - General Internal Medicine 07/05/20 documented as of this encounter
--- OUTSIDE RECORDS SUMMARY | 2024-09-03 12:58 | XMS_ITS | Encounter Summary ---
Author Organization [facility] Address [facility] [place] [address] Care Team Providers Care Taxicab Driver Name Role Phone Wale Shaver PA-C Primary Care Provider [phone] Encounter Details Date Type Department Care Team Description 04/11/2021 Compliance Representative Report Medical Records [address] [place] [address] Liang To MD Social History Tobacco Use [...] documented as of this encounter Care Teams Taxicab Driver Relationship Specialty Start Date End Date Wale Shaver PA-C [address] [place] [address] PCP - General Internal Medicine 07/05/20 documented as of this encounter
--- OUTSIDE RECORDS SUMMARY | 2024-09-03 12:58 | XMS_ITS | Encounter Summary ---
Author Organization [facility] Address [facility] [place] [address] Care Team Providers Care Demonstrator Sales Name Role Phone Wale Shaver PA-C Primary Care Provider [phone] [phone] Encounter Details Date Type Department Care Team Description 10/31/2021 Board Machine Set Up Operator Report Medical Records [address] [place] [address] Liang To MD Social History Tobacco Use [...] documented as of this encounter Care Teams Demonstrator Sales Relationship Specialty Start Date End Date Wale Shaver PA-C [address] [place], [place] [phone] PCP - General Internal Medicine 07/05/20 documented as of this encounter
--- OUTSIDE RECORDS SUMMARY | 2024-09-03 12:58 | XMS_ITS | Encounter Summary ---
Author Organization [facility] Address [facility] [place] [address] Care Team Providers Care Vending Machine Collector Name Role Phone Wale Shaver PA-C Primary Care Provider +1 [phone] Encounter Details Date Type Department Care Team Description 06/28/2021 Nuclear Spectroscopist Report Medical Records [address] [place] [address] Liang To MD Social History Tobacco Use [...] documented as of this encounter Care Teams Vending Machine Collector Relationship Specialty Start Date End Date Wale Shaver PA-C [address] [place] [address] PCP - General Internal Medicine 07/05/20 documented as of this encounter
--- OUTSIDE RECORDS SUMMARY | 2024-09-03 12:58 | XMS_ITS | Encounter Summary ---
Author Organization [facility] Address [facility] [place] [address] Care Team Providers Care Miniature Set Builder Name Role Phone Wale Shaver PA-C Primary Care Provider [phone] Encounter Details Date Type Department Care Team Description 04/20/2021 Business Doc Medical Records [address] [place] [address] Abstract, Provider Social History Tobacco Use Types [...] have Coronavirus / COVID-19? No / Unsure 04/18/2021 9:43 AM EDT documented as of this encounter Plan of Treatment Not on file documented as of this encounter Visit Diagnoses Not on filedocumented in this encounter Additional Health Concerns Infection Onset Date Last Indicated Resolved Time COVID-19 07/19/2022 07/20/2022 08/14/2023 11:4 2 AM EST documented as of this encounter Care Teams Miniature Set Builder Relationship Specialty Start Date End Date Wale Shaver PA-C [address] [place] [address] PCP - General Internal Medicine 07/05/20 documented as of this encounter
--- OUTSIDE RECORDS SUMMARY | 2024-09-03 12:58 | XMS_ITS | Encounter Summary ---
Author Organization [facility] Address [facility] [place] [address] Care Team Providers Care Nursing Home Manager Name Role Phone Wale Shaver PA-C Primary Care Provider +[phone] Encounter Details Date Type Department Care Team Description 01/31/2024 Video Software Engineer Report Medical Records [address] [place] [address] Social History Tobacco Use Types Packs/Day Years [...] on filedocumented in this encounter Care Teams Nursing Home Manager Relationship Specialty Start Date End Date Wale Shaver PA-C [address] [place], [place] [phone] PCP - General Internal Medicine 07/05/20 documented as of this encounter
--- OUTSIDE RECORDS SUMMARY | 2024-09-03 12:58 | XMS_ITS | Clinical Summary ---
Author Organization [facility] Address [address] [place] [address] Care Team Providers Care Armature Winder Repairer Name Role Phone SharshaunnaWale dubose Primary Care Provider [phone] Allergies Active Allergy Reactions Criticality Noted Date Comments Adalimumab Rash Low 12/17/2019 Adhesive Unknown Adhesive Tape-Silicones Unknown 04/02/2015 [place] Migraine Azithromycin Hives,Dermatitis 06/27/2018 Rash/Dermatitis Balsam [place]-Zinc Oxide Unknown 08/22/2019 Bee Venom Protein (Honey [...] Active INHALER, ASSIST DEVICES (AEROCHAMBER PL[place] [facility] [place] Use as directed. Active amLODIPine (NORVASC) 5 mg tablet Take 5 mg by mouth daily. Active fexofenadine (ZORAN) 60 mg tablet Take 180 mg by mouth nightly. Active cholecalciferol, vitamin D3, 5,000 unit tablet Take 1 tablet by mouth. Active EPINEPHrine (EPIPEN) 0.3 mg/0.3 mL injection syringe Inject as directed. Active blood glucose diagnostoc (freestyle) 28 gauge [facility] FreeStyle Lancets Miscellaneous TEST twice a day [...] (04/07/2021): Added automatically from request for surgery [id number] Tinea cruris 02/13/2017 Intertrigo 02/13/2017 Tinea corporis [...] 03/17/2014 Joint pain, knee Right 10/08/2012 Immunizations Immunization Administration Dates Next Due INFLUENZA, SPLIT VIRUS, [...] Description 09/25/2024 10:30 AM EDT Office Visit [facility] [address] [place] [address] Drug And Alcohol Treatment Specialist: Kia Melgar MD [address] [place] [address] Health Maintenance Due Date Last Done [...] Armida ual Screening 07/16/2024 DTaP,Tdap,and Td Vaccines (3 - Td or Tdap) 04/02/2025 04/02/2015, 04/30/2013 Pneumococcal Vaccine: 50+ Ye ars (3 of 3 - PCV20 or PCV21) 04/19/2027 04/19/2022, 2016, 03/21/2016 RSV Vaccine (60+ years old a nd patients) (1 - 1-dose 75+ series) 2048 Hepatitis C Screening Completed 05/06/2019 , 08/30/2018, 02/17/2016 Influenza Vaccine Completed 05/19/2024, , 04/19/2022, Additional history exists Procedures * Due to [place] [employer] law, this organization might not be sharing negative HIV tests. Procedure Name Priority Date/Time Associated Diagnosis Comments HEPATITIS C ANTIBODY W/REFLEX TO HCV RNA, QUANTITATIVE PCR Routine 05/06/2019 1:02 PM EDT Psoriatic arthropathy (CMS/HCC) (HCC) from Last 3 Months or Most Recently Relevant to Health Maintenance Results * Due to [place] [employer] law, this organization might not be sharing negative HIV tests. * Hepatitis C Antibody w/Reflex to HCV RNA, Quantitative PCR (05/06/2019 1:02 PM EDT) Hepatitis C Antibody NON-REACT VEENA NON-REACT VEENA 05/07/2019 1:19 AM EDT [facility] Signal To Cut-Off 0.05 <1.00 05/07/2019 1:19 AM EDT [facility] Comment: HCV antibody was non-reactive. There is no laboratory evidence of HCV infection. In most cases, no further action is required. However, if recent HCV exposure is suspected, a test for HCV RNA (test code 32055) is suggested. For additional information please refer to http://education.OpDemand/faq/TKG69w9 (This link is being provided for informational/ educational purposes only.) Blood specimen (specimen) Structure of peripheral vein / Unknown Venipuncture / Unknown 05/06/2019 1:02 PM EDT 05/06/2019 1:35 PM EDT Narrative [facility] [place] - 05/07/2019 1:19 AM EDT [facility] Received Date: us Ronald Baldwin MD LAB BLOOD ORDERABLES Final Resul t [facility] [address] [facility] [address], [place] [address], [place] [phone] [facility] [address] [facility] [address] Floor, [address] [facility] [place] [address], [place] [phone] from Last 3 Months or Most Recently Relevant to Health Maintenance [facility] Care Teams Armature Winder Repairer Relationship Specialty Start Date End Date Wale Shaver PCP - General Internal Medicine 09/24/20
--- OUTSIDE RECORDS SUMMARY | 2024-09-03 12:58 | XMS_ITS | Encounter Summary ---
Author Organization [facility] Address [facility] [place] [address] Care Team Providers Care Turnstile Attendant Name Role Phone Wale Shaver PA-C Primary Care Provider [phone] Encounter Details Date Type Department Care Team Description 02/04/2024 Pt. Non Urgent Medical Question Adult Medicine [address] [address] Wale Shaver PA-C [address] [place] [address] Social History Tobacco Use Types Packs/Day Years [...] Telephone Encounter - Karla Park L.P.N. - 02/04/2024 12:03 PM EDTFrom: Iva Morgan To: Vashti Shaver Sent: 02/04/2024 11:44 AM EDT Subject: Good morning I am just checking to make sure there are bloodwork orders for tomorrow morning. And that you stilltake my insurance because I have [facility] for prescriptions.. Thank you Iva morgan 1975 documented in this encounter Plan of Treatment Not on file documented as of this encounter Visit Diagnoses Not on filedocumented in this encounter Care Teams Turnstile Attendant Relationship Specialty Start Date End Date Wale Shaver PA-C [address] [place] [address] PCP - General Internal Medicine 07/05/20 documented as of this encounter
--- OUTSIDE RECORDS SUMMARY | 2024-09-03 12:58 | XMS_ITS | Encounter Summary ---
Author Organization [facility] Address [address] [place] [address] Care Team Providers Care Linotype Operator Name Role Phone Sudheer Bermudez MD Primary Care Provider [phone] Prince Goodrich Primary Care Provider [facility] Sudheer Bermudez MD Primary Care Provider + [phone] Noe Jones MD Primary Care Provider [phone] Wale Shaver PA-C Primary Care Provider [phone] Encounter Details Date Type Department Care Team Description 05/27/2019 Party Host/Hostess Report Medical Records [address] [place] [address] [facility] Social History Tobacco Use Types Packs/Day Years [...] documented as of this encounter Care Teams Linotype Operator Relationship Specialty Start Date End Date Sudheer Bermudez MD [address] [place] [address] PCP - General Internal Medicine 09/17/17 09/16/19 Prince Goodrich [address] [place] [address] PCP - General Internal Medicine 09/17/19 03/17/20 Sudheer Bermudez MD [address] [place] [address] PCP - General Internal Medicine 03/18/20 06/24/20 Noe Jones MD [address] [place] [address] PCP - General Internal Medicine 06/25/20 07/04/20 Wale Shaver PA-C [address] [place] [address] PCP - General Internal Medicine 07/05/20 documented as of this encounter
--- OUTSIDE RECORDS SUMMARY | 2024-09-03 12:58 | XMS_ITS | Encounter Summary ---
Author Organization [facility] Address [facility] [place] [address] Care Team Providers Care Artisan Plasterer Name Role Phone Wale Shaver PA-C Primary Care Provider [phone] Encounter Details Date Type Department Care Team Description 02/15/2024 Photo Mask Processor Report Medical Records [address] [place] [address] Abstract, Provider Social History Tobacco Use Types [...] on filedocumented in this encounter Care Teams Artisan Plasterer Relationship Specialty Start Date End Date Wale Shaver PA-C [address] [place], [place] [id number] PCP - General Internal Medicine 07/05/20 documented as of this encounter
--- OUTSIDE RECORDS SUMMARY | 2024-09-03 12:58 | XMS_ITS | Referral Summary ---
Author Organization [facility] Address [address] [place] [address] Care Team Providers Care Signwriter Name Role Phone SharshaunnaWale dubose Primary Care Provider [phone] Allergies Active Allergy Reactions Criticality Noted Date Comments Adalimumab Rash Low 12/17/2019 Adhesive Unknown Adhesive Tape-Silicones Unknown 04/02/2015 [place] Migraine Azithromycin Hives,Dermatitis 06/27/2018 Rash/Dermatitis Balsam [place]-Zinc Oxide Unknown 08/22/2019 Bee Venom Protein (Honey [...] Active INHALER, ASSIST DEVICES [place]AMBER PL[place] [facility] [place] Use as directed. Active amLODIPine (NORVASC) 5 mg tablet Take 5 mg by mouth daily. Active fexofenadine (ZORAN) 60 mg tablet Take 180 mg by mouth nightly. Active cholecalciferol, vitamin D3, 5,000 unit tablet Take 1 tablet by mouth. Active EPINEPHrine (EPIPEN) 0.3 mg/0.3 mL injection syringe Inject as directed. Active blood glucose diagnostoc (freestyle) 28 [facility] FreeStyle Lancets Miscellaneous TEST twice a [...] (04/07/2021): Added automatically from request for surgery [id number] Tinea cruris 02/13/2017 Intertrigo 02/13/2017 Tinea corporis [...] Description 09/25/2024 10:30 AM EDT Office Visit [facility] [address] [place] [address] Raw Finish Mill Operator: Kia Melgar MD [address] [place] [address] Procedures * Due to [place] [employer] law, this organization might not be sharing negative HIV tests. Procedure Name Priority Date/Time Associated Diagnosis Comments HEPATITIS C ANTIBODY W/REFLEX TO HCV RNA, QUANTITATIVE PCR Routine 05/06/2019 1:02 PM EDT Psoriatic arthropathy (CMS/HCC) (HCC) from Last 3 Months or Most Recently Relevant to Health Maintenance Results * Due to [place] [employer] law, this organization might not be sharing negative HIV tests. * Hepatitis C Antibody w/Reflex to HCV RNA, Quantitative PCR (05/06/2019 1:02 PM EDT) Hepatitis C Antibody NON-REACT VEENA NON-REACT VEENA 05/07/2019 1:19 AM EDT [employer] Signal To Cut-Off 0.05 <1.00 05/07/2019 1:19 AM EDT [employer] Comment: HCV antibody was non-reactive. There is no laboratory evidence of HCV infection. In most cases, no further action is required. However, if recent HCV exposure is suspected, a test for HCV RNA (test code 80626) is suggested. For additional information please refer to http://education.Seed&Spark/faq/TFF87y3 (This link is being provided for informational/ educational purposes only.) Blood specimen (specimen) Structure of peripheral vein / Unknown Venipuncture / Unknown 05/06/2019 1:02 PM EDT 05/06/2019 1:35 PM EDT [facility] - 05/07/2019 1:19 AM EDT [facility] Received Date: us Ronald Baldwin MD LAB BLOOD ORDERABLES Final Resul t [facility] [address] [facility] [address], [place] [address], [place] [phone] [facility] [employer] [facility] [address] [facility] [address], [place] [address], [place] [phone] from Last 3 Months or Most Recently Relevant to Health Maintenance Insurance [facility] MEDICARE Care Teams Signwriter Relationship Specialty Start Date End Date Wale Shaver PCP - General Internal Medicine 09/24/20
[2024-09-03 16:25] LABS: MANUAL DIFF FLAG NO
[2024-09-03 16:37] LABS: Basophils Percent Auto 0.4 % (0-2); Eosinophils Absolute Auto 0.1 X10*3/uL (0.0-0.4); Eosinophils Percent Auto 0.6 % (0-4); Hematocrit 45.8 % (37.0-47.0); Hemoglobin 14.9 g/dl (12.0-16.0); Imm Gran Abs Auto 0.03 X10*3/uL (0.00-0.03); Imm Gran Pct Auto 0.4 % (0.0-0.4); Lymphocytes Absolute Auto 0.9 X10*3/uL (1.2-4.9); Lymphocytes Percent Auto 11.3 % (20-40); Mean Corpuscular HGB Conc 32.5 g/dl (31.0-35.0); Mean Corpuscular Hemoglobin 30.7 pg (27.0-33.0); Mean Corpuscular Volume 94.4 fL (80.0-98.0); Mean Platelet Volume 10.1 fL (9.4-12.3); Monocytes Absolute Auto 0.2 X10*3/uL (0.1-1.2); Monocytes Percent Auto 2.3 % (2-11); Platelet Count 324 X10*3/uL (160-400); Red Blood Count 4.85 X10*6/uL (4.20-5.50); Red Cell Distribution Width 12.7 % (11.0-16.0); White Blood Count 8.2 X10*3/uL (4.8-10.8)
[2024-09-03 16:44] LABS: Alanine Aminotransferase 35 U/L (0-31); Aspartate Amino Transferase 33 U/L (5-31); Estimated Glomerular Filt Rate > 60
== END 2024-09-03 12:39 | disposition home or self-care (01) ==
LOC: HO.HMGCLDS 12:38
PROVIDERS: PCP Physician Assistant Medical; Visit Provider Internal Medicine Rheumatology
DX: Z79.899 Other long term (current) drug therapy (principal); Z79.60 Long term (current) use of unspecified immunomodulators and immunosuppressants
CPT/HCPCS: 36415; 82565; 84450; 84460; 85025